=== PATIENT | male | born 1945 | race African-American/Black ===

== ENCOUNTER 2017-05-04 09:21 | Inpatient (IN) ==
[2017-05-04] MEDS ORDERED: SODIUM CHLORIDE 0.9% 1,000 ML IV STA (09:42)
--- NOTE | 2017-05-04 10:10 | Emergency Department Note ---
Suleman Avila Hilary, am scribing for, and in the presence of, Kirit Chang MD 09: 50. Charlene Avila James D, MD, personally performed the services described in this documentation, ascribed by Cait Shell in my presence, and it is both accurate and complete . Arrival - Arrival Chief Complaint: Altered Mental Status Stated Complaint: altered, urinary incontinence ED Nursing Triage Note: PT BROUGHT BY EMS FOR EVALUATION OF ALTERED MENTAL STATUS. PT WAS FOUND BY HIS FAMILY THIS MORNING DURING ROUTINE VISIT TO BE DISORIENTED, DISHEVELED, AND WITH URINARY INCONTINENCE. PT IS ALERT, BUT DISORIENTED TO TIME AND PLACE. Mode of Arrival: Stretcher Limitations: Altered Mental Status Source: Patient, RN Notes Reviewed Time Seen by Provider: 05/04/17 09:37 - History of Present Illness HPI Narrative: Pt is a 72 y/o black male brought to the ED via EMS with c/o AMS. His family found him this morning during their routine visit, he was disoriented. Pt is unaware of the year or day. He confirms dysuria and fever but denies vomiting and diarrhea. Pt is a poor hx due to his AMS. No other complaints or problems stated in the ED. patient absolutely denies any chest pain, neck pain, back pain , or shoulder pain. There is no history of arm pain. Onset (ago): unknown Consistency: constant Severity: mild Severity scale (1-10): 1 Allergies/Adverse Reactions: Allergies Allergy/AdvReac Type Severity Reaction Status Date / Time No Known Allergies Allergy Verified 05/04/17 09:35 Home Medications: Home Medications Medication Instructions Recorded Confirmed Type Ezetimibe [Zetia] 10 mg PO DAILY 05/07/16 06/10/16 History Montelukast Tab [Singulair Tab] 10 mg PO DAILY 05/07/16 06/10/16 History Pantoprazole Tab [Protonix Tab] 40 mg PO DAILY 05/07/16 06/10/16 History traMADol TAB [Ultram] 50 mg PO TID PRN 05/07/16 06/10/16 History Albuterol Sulfate [Albuterol Neb] 0.63 mg RESP TX BID 06/07/16 06/10/16 History Oxybutynin Xl [Ditropan Xl] 10 mg PO DAILY 06/07/16 06/10/16 History Ipratropium/Albuterol Inhaler 1 puff INH QID PRN 06/10/16 06/10/16 History [Combivent Respimat Inhaler] Lactulose Liquid [Chronulac] 2 tablespoon PO TID PRN 06/10/16 06/10/16 History Sulfameth/Trimeth 800-160 Tab 1 tablet PO BID #20 tablet 01/02/17 Rx [Bactrim DS Tab] predniSONE TAB [PredniSONE] 20 mg PO DAILY #10 tablet 01/02/17 Rx Levofloxacin Tab [Levaquin Tab] 500 mg PO DAILY #7 tablet 04/18/17 Rx predniSONE TAB [PredniSONE] 20 mg PO BID #20 tablet 04/18/17 Rx Review of System - Review of System 12 point system: reviewed and no additional remarkable complaints except as stated - Review of System Constitutional: Present: fever Gastrointestinal: Absent: vomiting, diarrhea Genitourinary male: Present: dysuria Medical,Surgical,& Family Hx - Medical History Cardio: History of: Hypertension Neurology: History of: Peripheral Neuropathy No history of: Seizures HEENT: History of: Ear Problem ([place]), Eye Problem ([place]), Dental Problems ( [place]) Endocrine: History of: Dyslipidemia Respiratory: History of: Asthma, Bronchitis, COPD, Lung Cancer, Respiratory Problems (RT LUNG NODULE, SHORTNESS OF BREATH) Genitourinary: History of: Bladder Problem (URGENCY), Prostate Problems ([place]) Gastrointestinal: History of: GERD, Polyps (REMOVED), GI Problems ([place]IP[place]) Musculoskeletal: History of: Back/Neck Problems (BACK DR TORRES LAST INJECTION 2015.) Other: History of: Cancer (PROSTATE CANCER, RT LUNG POSSIBLE) - Surgical History Abdominal Surgeries: Surgical HX of: Abdominal Surgery, Appendectomy (1976), Colonoscopy Orthopedic Surgeries: Surgical HX of;: Spinal Surgery (BACK SURGERY 1985) - Family History Family History: Reports;: Family Diabetes (SISTER, MOTHER), Family Hypertension (MOTHER, SISTER, BROTHER) - Social History Smoking Status: Former smoker Frequency of Alcohol Use: None Type of Drug Use: None Exam Physical Examination: GENERAL: This is a disheveled, AMS, well-developed in no apparent distress. VITAL SIGNS: Temperature: 97.5 Pulse: 114 Respiratory: 18 Blood Pressure: 180 /90 O2 Sat: 96 HEENT: Head is normocephalic and atraumatic. Pupils are equally round and reactive to light. Extraocular movement are intact. Oropharynx is benign with moist dry membranes. NECK: Neck is soft and supple without tenderness. There are no masses. There is no lymphadenopathy. LUNGS: Lungs are clear to auscultation bilaterally. Chest rises symmetrically. There is no chest wall tenderness. CV: Heart is regular rate and rhythm without murmurs, rubs, or gallops. ABDOMEN: Abdomen is soft,non- tender to palpation. There are no abnormal masses palpated. There is no organomegaly. Bowel sounds are present and active. SKIN: Skin is warm and dry. No rash. NEUROLOGIC: Awake, alert, and disoriented to time. Cranial nerves II through XII are grossly intact. There are no motorsensory deficits. PSYCHIATRIC: Normal affect. Normal mood. Vital Signs: Vital Signs Temperature 97.4 F L 05/04/17 09:21 Pulse Rate 106 H 05/04/17 11:00 Respiratory Rate 18 05/04/17 11:00 Blood Pressure 146/64 05/04/17 11:00 O2 Sat by Pulse Oximetry 100 05/04/17 11:00 Course - Consultations Consultation #1: Discussed with hospitalist. Patient will be admitted to their service. Time: 11:44 Results - Labs CBC & BMP: 05/04/17 10:39 05/04/17 10:39 Lab Results: I have reviewed the patients labs Labs: Laboratory Tests 05/04/17 10:28 Urine pH 8.0 Ur Specific [place] 1.025 Urine Protein 100 Urine Glucose (UA) 50 Urine Ketones 20 Urine Urobilinogen < 2.0 H Urine RBC 4 Urine WBC 1 Laboratory Tests 05/04/17 05/04/17 10:28 10:39 WBC 11.7 RBC 5.00 Hgb 13.8 L Hct 38.7 L MCV 77.4 L Plt Count 152 Neut % (Auto) 74.0 H Lymph % (Auto) 11.8 L Neut # (Auto) 8.6 H [place] # (Auto) 1.2 H Urine Opiates Screen Negative Ur Barbiturates Screen Negative Ur Phencyclidine Scrn Negative U Amphetamine/Methamph Negative U Benzodiazepines Scrn Negative U Cocaine Metab Screen Negative U Cannabinoids Screen Negative Laboratory Tests 05/04/17 05/04/17 10:39 10:39 INR 1.1 PT Patient/Control Mix 12.2 Circ Anticoag PTT 28.2 Lactic Acid 1.3 Laboratory Tests 05/04/17 10:39 Sodium 138 Potassium 4.1 Chloride 101 Carbon Dioxide 29 BUN 12 Glucose 109 H Calcium 8.4 L Troponin I 2.920 H Albumin 3.0 L Globulin 3.9 H Albumin/Globulin Ratio 0.7 L Laboratory Tests 05/04/17 05/04/17 05/04/17 10:28 10:28 10:39 WBC 11.7 Hgb 13.8 L Hct 38.7 L INR Troponin I Urine RBC 4 Urine WBC 1 Urine Opiates Screen Negative Ur Barbiturates Screen Negative Ur Phencyclidine Scrn Negative U Amphetamine/Methamph Negative U Benzodiazepines Scrn Negative U Cocaine Metab Screen Negative U Cannabinoids Screen Negative 05/04/17 05/04/17 10:39 10:39 WBC Hgb Hct INR 1.1 Troponin I 2.920 H Urine RBC Urine WBC Urine Opiates Screen Ur Barbiturates Screen Ur Phencyclidine Scrn U Amphetamine/Methamph U Benzodiazepines Scrn U Cocaine Metab Screen U Cannabinoids Screen - EKG EKG results: interpreted by ERMD - Impressions EKG: Sinus tachycardia with rate of 106, left axis deviation, right bundle branch block, nonspecific ST-T wave changes. - Diagnostic Findings Procedure: Chest x-ray: image reviewed by me (1. Right lower lobe interstitial pneumonic infiltrate iwth a small parapneumonic effusion suspected with the history, the possibility of radiation firotic scarring cannot be excluded in the right base. There is mild prominence of the right infrahilar region also noted. With previous CT scan demonstrated a small area of nodularity adenopathy in the right hilus 04/25/2017 and right base pleural effusion 2. Calcified nodular densities suggest granuloma changes in the right chest. 3. Degenerative spondylosis change thoracic spine), CT: image reviewed by me (CT head: No acute intracranial abnormality demonstrated. ) Disposition Clinical Impression: Altered mental status, Elevated troponin, Fall at home Case discussed with: patient Disposition: Still a Patient Condition: Guarded
--- NOTE | 2017-05-04 10:24 | CT Report ---
CT head/brain wo con Indication: Mental status changes Comparison: CT brain dated December 21, 2016 Technique: Multiple axial tomographic images of the brain were obtained without the use of intravenous contrast. Findings: Midline structures are nondisplaced. There is no evidence of acute intracranial hemorrhage or hydrocephalus. Senescent mineralization of the bilateral basal ganglia. Moderate periventricular and subcortical hypoattenuation noted which is nonspecific but consistent with chronic microvascular ischemic change. Demyelinating process and vasculitis less likely considerations. Mild global volume loss present. 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 IMPRESSION: No acute intracranial abnormality demonstrated. Chronic findings as detailed above. The CT exam was performed using one or more of the following dose reduction techniques: Automated exposure control, adjustment of the mA and/or kV according to patient size, or use of iterative reconstruction technique. PROCEDURE INTERPRETED AT [facility] DEPARTMENT OF RADIOLOGY Final Report Signed by: Dr Kraig Johnson
--- NOTE | 2017-05-04 10:25 | XRay Report ---
Exam: XR chest 1V portable Date: 05/04/2017 9:48 AM Indication: Altered mental status, history of lung cancer post radiation therapy Comparison: 04/18/2017 Technical: AP Findings: Heart is normal in size. There is a right basilar interstitial pneumonic infiltrate suspected. Fluid is present along the minor fissure. There is a small area of nodularity present in the right chest measuring approximately 9.5 mm with a second area measuring approximately 5.6 mm. Degenerative changes present along thoracic spine. ASVD is present. Low volume right effusion present. Impression: 1. Right lower lobe interstitial pneumonic infiltrate with a small parapneumonic effusion suspected with the history, the possibility of radiation fibrotic scarring cannot be excluded in the right base. There is mild prominence of the right infrahilar region also noted. With previous CT scan demonstrated a small area of nodularity adenopathy in the right hilus 04/25/2017 and right base pleural effusion 2. Calcified nodular densities suggest granuloma changes in the right chest. 3. Degenerative spondylosis change thoracic spine. PROCEDURE INTERPRETED AT [facility] DEPARTMENT OF RADIOLOGY Final Report Signed by: Dr. Danny Carrion
--- NOTE | 2017-05-04 10:26 | EKG Report ---
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
[2017-05-04 10:38] LABS: Apearance,Urine CLEAR (Clear); Bilirubin,Urine Negative (Negative); Blood, Urine Negative (Negative); Glucose,Urine (UA) 50 mg/dL (Negative); Ketones,Urine 20 mg/dL (Negative); Mucus,Urine Occasional /LPF (Occasional); Nitrite,Urine Negative (Negative); Protein,Urine 100 MG/DL; RBC,Urine 4 /HPF (0-4); Urine Color Yellow (Yellow); Urine Specific Gravity 1.025 (1.001-1.035); Urine Urobilinogen < 2.0 EU/DL (0.2-1.0); WBC,Urine 1 /HPF (0-6)
[2017-05-04 10:49] LABS: Barbiturates Screen,Urine Negative (Negative); Benzodiazepines Screen,Urine Negative (Negative); Cannabinoid Screen,Urine Negative (Negative); Opiate Screen,Urine Negative (Negative); Phencyclidine Screen,Urine Negative (Negative)
[2017-05-04 10:53] LABS: Basophils # 0.1 10*3/uL (0.0-0.2); Basophils % 0.5 % (0.0-0.8); Eosinophils # 0.4 10*3/uL (0.0-0.87); Eosinophils % 3.1 % (0.00-10.9); Hematocrit 38.7 VOL% (42.0-52.0); Hemoglobin 13.8 GM/DL (14.0-18.0); Immature Granulocytes % 0.4 %; Immature Granulocytes Absolute 0.05 #; Lymphocytes # 1.4 10*3/uL (1.4-4.0); Lymphocytes % 11.8 % (21.2-54.2); Mean Corpuscular HGB Conc 35.7 GM/DL (32-36); Mean Corpuscular Hemoglobin 28 PG (27-34); Mean Corpuscular Volume 77.4 FL (87-102); Mean Platelet Volume 10.1 FL (9.6-12.0); Monocytes # 1.2 10*3/uL (0.11-0.8); Monocytes % 10.2 % (1.7-12.7); Neutrophils # 8.6 10*3/uL (1.4-7.4); Platelet Count 152 T/CUMM (130-400); Red Cell Distribution Width 14.8 % (9.3-17.3); White Blood Count 11.7 T/CUMM (4-12)
[2017-05-04 11:03] LABS: INR 1.1; PT Patient Result 12.2 SECS; Partial Thromboplastin Time 28.2 SECS (0-40)
[2017-05-04 11:33] LABS: Bilirubin,Total 0.9 MG/DL (0.2-1.0); Calcium 8.4 MG/DL (8.5-10.1); Osmolality,Calculated 275.7 MOS/KG (273-304); Potassium 4.1 MMOL/L (3.5-5.1); Total Protein 6.9 G/DL (6.4-8.3)
[2017-05-04 11:35] LABS: Troponin I Only 2.92 NG/ML (0.00-0.045)
--- NOTE | 2017-05-04 12:15 | XRay Report ---
XR pelvis AP 1 or 2 Views Indication: Fall Comparison: Pelvic x-ray dated May 07, 2016 Technique: Single frontal view of the pelvis. Findings: [id number] degenerative change of the bilateral hips. No definite acute fracture or dislocation demonstrated. Sacrum somewhat obscured by bowel. Degenerative change of the lower lumbar spine noted. IMPRESSION: As above. PROCEDURE INTERPRETED AT [facility] DEPARTMENT OF RADIOLOGY Final Report Signed by: Dr Kraig Johnson
--- NOTE | 2017-05-04 13:38 | Discharge Summary ---
Hospital Course - Hospital Course Hospital Course: This is a chronically ill 72-year-old male that presented to the ED at [facility] via EMS this morning for the evaluation of altered mental status. Patient has a very complex medical history significant for: Hypertension, peripheral neuropathy, dyslipidemia, chronic obstructive pulmonary disease, asthma, bronchitis, carcinoma of the lung, carcinoma of the prostate, GERD, chronic constipation, urinary frequency. She has a surgical history significant for: appendectomy and back surgery. Apparently, the patient was found by his family this morning at his home. His brother came by to visit and found the patient confused, disheveled, and he had experienced urinary incontinence. They became alarmed and called EMS. Time of ED presentation, the patient was grossly altered The patient was aware that he was at the hospital however he was unable to recall situation, date, or time. Labs were obtained: Complete blood cell count reported WBCs 11.7, hemoglobin 13.8, hematocrit 30.7, and platelet count 150 2P coagulation panel reported an INR 1.1, PT 12.2, and PTT of 28.2. Chemistry panel reported sodium of 138, potassium 4.1, chloride 101, carbon dioxide 29, BUN 12, creatinine 1.00 , glucose 109, lactic acid 1.3, calcium 8.4. Cardiac enzymes reported grossly elevated troponin at 2.920. Urinalysis was essentially unremarkable. Chest x- ray reported right lower lobe interstitial pneumonic infiltrate with a small parapneumonic effusion, the possibility of radiation fibrotic scarring cannot be excluded in the right base. In addition there is mild prominence of the right infrahilar region, calcified nodular densities suggest granuloma changes in the right chest, and degenerative spondylosis change in the thoracic spine. CT head reported no acute intracranial abnormalities however chronic findings of left cerebellum of encephalomalacia were noted. Pelvic x-ray reported mild to moderate degenerative change in the bilateral hips, no acute definitive fracture or dislocation demonstrated, sacrum is somewhat obscured by bowel, degenerative changes of the lumbar spine noted. After brief discussion with both Dr. Chang and Dr. Swain; the patient will be admitted to the hospitalist services for continuation of care. Discharge Plan - Discharge Medications No Action Pantoprazole Tab [Protonix Tab] 40 mg PO DAILY Ezetimibe [Zetia] 10 mg PO DAILY traMADol TAB [Ultram] 50 mg PO TID PRN PRN Reason: Pain Montelukast Tab [Singulair Tab] 10 mg PO DAILY Albuterol Sulfate [Albuterol Neb] 0.63 mg RESP TX BID Oxybutynin Xl [Ditropan Xl] 10 mg PO DAILY Ipratropium/Albuterol Inhaler [Combivent Respimat Inhaler] 1 puff INH QID PRN PRN Reason: Wheezing Lactulose Liquid [Chronulac] 2 tablespoon PO TID PRN PRN Reason: Constipation Sulfameth/Trimeth 800-160 Tab [Bactrim DS Tab] 1 tablet PO BID #20 tablet predniSONE TAB [PredniSONE] 20 mg PO BID #20 tablet predniSONE TAB [PredniSONE] 20 mg PO DAILY #10 tablet Levofloxacin Tab [Levaquin Tab] 500 mg PO DAILY #7 tablet - Follow Up or Referral - Forms/Instructions Exam - Constitutional Vitals: Period Temp Pulse Resp BP Sys/Huang Pulse Ox Last 24 Hr 97.4 F-97.5 F 106-114 18-20 129-180/64-95 96-100 Discharge Results Procedures and tests throughout hospitalization: Pending Orders 05/04/17 09:48 Blood Culture Stat Labs on day of discharge: Labs from last 24 hours 05/04/17 05/04/17 05/04/17 10:39 10:39 10:39 WBC RBC Hgb Hct MCV MCH MCHC RDW Plt Count MPV Neut % (Auto) Lymph % (Auto) [place] % (Auto) Eos % (Auto) Baso % (Auto) Neut # (Auto) Lymph # (Auto) [place] # (Auto) Eos # (Auto) Baso # (Auto) Immature Gran % Nucleated RBC % Immature Gran # Nucleated RBCs # INR PT Patient/Control Mix Circ Anticoag PTT Sodium 138 Potassium 4.1 Chloride 101 Carbon Dioxide 29 Anion Gap 12.1 BUN 12 Creatinine 1.00 GFR Calculation 101 BUN/Creatinine Ratio 12.00 Glucose 109 H Calculated Osmolality 275.7 Lactic Acid 1.3 Calcium 8.4 L Total Bilirubin 0.90 AST 31 ALT 27 Alkaline Phosphatase 79 Ammonia 16 Troponin I 2.920 H Total Protein 6.9 Albumin 3.0 L Globulin 3.9 H Albumin/Globulin Ratio 0.7 L Prolactin 6.9 Urine Color Urine Appearance Urine pH Ur Specific Drain Urine Protein Urine Glucose (UA) Urine Ketones Urine Blood Urine Nitrate Urine Bilirubin Urine Urobilinogen Urine Leukocytes Urine RBC Urine WBC Urine Mucus Ur Culture Indicated? Urine Opiates Screen Ur Barbiturates Screen Ur Phencyclidine Scrn U Amphetamine/Methamph U Benzodiazepines Scrn U Cocaine Metab Screen U Cannabinoids Screen 05/04/17 05/04/17 05/04/17 10:39 10:39 10:28 WBC 11.7 RBC 5.00 Hgb 13.8 L Hct 38.7 L MCV 77.4 L MCH 28 MCHC 35.7 RDW 14.8 Plt Count 152 MPV 10.1 Neut % (Auto) 74.0 H Lymph % (Auto) 11.8 L [place] % (Auto) 10.2 Eos % (Auto) 3.1 Baso % (Auto) 0.5 Neut # (Auto) 8.6 H Lymph # (Auto) 1.4 [place] # (Auto) 1.2 H Eos # (Auto) 0.4 Baso # (Auto) 0.1 Immature Gran % 0.4 Nucleated RBC % 0.0 Immature Gran # 0.05 Nucleated RBCs # 0.00 INR 1.1 PT Patient/Control Mix 12.2 Circ Anticoag PTT 28.2 Sodium Potassium Chloride Carbon Dioxide Anion Gap BUN Creatinine GFR Calculation BUN/Creatinine Ratio Glucose Calculated Osmolality Lactic Acid Calcium Total Bilirubin AST ALT Alkaline Phosphatase Ammonia Troponin I Total Protein Albumin Globulin Albumin/Globulin Ratio Prolactin Urine Color Urine Appearance Urine pH Ur Specific Drain Urine Protein Urine Glucose (UA) Urine Ketones Urine Blood Urine Nitrate Urine Bilirubin Urine Urobilinogen Urine Leukocytes Urine RBC Urine WBC Urine Mucus Ur Culture Indicated? Urine Opiates Screen Negative Ur Barbiturates Screen Negative Ur Phencyclidine Scrn Negative U Amphetamine/Methamph Negative U Benzodiazepines Scrn Negative U Cocaine Metab Screen Negative U Cannabinoids Screen Negative 05/04/17 10:28 WBC RBC Hgb Hct MCV MCH MCHC RDW Plt Count MPV Neut % (Auto) Lymph % (Auto) [place] % (Auto) Eos % (Auto) Baso % (Auto) Neut # (Auto) Lymph # (Auto) [place] # (Auto) Eos # (Auto) Baso # (Auto) Immature Gran % Nucleated RBC % Immature Gran # Nucleated RBCs # INR PT Patient/Control Mix Circ Anticoag PTT Sodium Potassium Chloride Carbon Dioxide Anion Gap BUN Creatinine GFR Calculation BUN/Creatinine Ratio Glucose Calculated Osmolality Lactic Acid Calcium Total Bilirubin AST ALT Alkaline Phosphatase Ammonia Troponin I Total Protein Albumin Globulin Albumin/Globulin Ratio Prolactin Urine Color Yellow Urine Appearance Clear Urine pH 8.0 Ur Specific [place] 1.025 Urine Protein 100 Urine Glucose (UA) 50 Urine Ketones 20 Urine Blood Negative Urine Nitrate Negative Urine Bilirubin Negative Urine Urobilinogen < 2.0 H Urine Leukocytes Negative Urine RBC 4 Urine WBC 1 Urine Mucus Occasional Ur Culture Indicated? Not indicated Urine Opiates Screen Ur Barbiturates Screen Ur Phencyclidine Scrn U Amphetamine/Methamph U Benzodiazepines Scrn U Cocaine Metab Screen U Cannabinoids Screen DS: Provider Date of admission: 05/04/17 11:56 Primary care physician: Danny Byrd MD Attending physician on admission: Noah Swain MD Discharging clinician: Daniela Antonio CNP
[2017-05-04] MEDS ORDERED: ONDANSETRON 4 MG/2 ML VIAL IV PRN (13:48)
--- NOTE | 2017-05-04 13:51 | Hospitalist History & Physical ---
Assessment and Plan (1) Altered mental status Status: Acute Assessment and plan: According to the family's report, the patient's baseline is normally alert and oriented. They report that the patient still lives independently and drives his car. Their concern regarding his ability to be able to live alone. CT scan was essentially negative for any acute intracranial processes. We will monitor closely. Current Visit: Yes (2) Elevated troponin Status: Acute Assessment and plan: Troponin was grossly elevated at 2.920 at the time of ED presentation. We will obtain serial troponins and consult cardiology to evaluate. We will also obtain echocardiogram and BNP. Current Visit: Yes (3) Fall at home Status: Acute Assessment and plan: X-rays have been essentially unremarkable. We will consult physical therapy and Occupational Therapy to evaluate and treat. The patient is profoundly weak at the time of ED presentation; in addition we will consult case management for possible rehab placement at the time of discharge. Current Visit: Yes History of Present Illness Chief complaint: Altered mental status History of present illness: This is a chronically ill 72-year-old male that presented to the ED at [facility] via EMS this morning for the evaluation of altered mental status. Patient has a very complex medical history significant for: Hypertension, peripheral neuropathy, dyslipidemia, chronic obstructive pulmonary disease, asthma, bronchitis, carcinoma of the lung, carcinoma of the prostate, GERD, chronic constipation, urinary frequency. She has a surgical history significant for: appendectomy and back surgery. Apparently, the patient was found by his family this morning at his home. His brother came by to visit and found the patient confused, disheveled, and he had experienced urinary incontinence. They became alarmed and called EMS. Time of ED presentation, the patient was grossly altered The patient was aware that he was at the hospital however he was unable to recall situation, date, or time. Labs were obtained: Complete blood cell count reported WBCs 11.7, hemoglobin 13.8, hematocrit 30.7, and platelet count 150 2P coagulation panel reported an INR 1.1, PT 12.2, and PTT of 28.2. Chemistry panel reported sodium of 138, potassium 4.1, chloride 101, carbon dioxide 29, BUN 12, creatinine 1.00 , glucose 109, lactic acid 1.3, calcium 8.4. Cardiac enzymes reported grossly elevated troponin at 2.920. Urinalysis was essentially unremarkable. Chest x- ray reported right lower lobe interstitial pneumonic infiltrate with a small parapneumonic effusion, the possibility of radiation fibrotic scarring cannot be excluded in the right base. In addition there is mild prominence of the right infrahilar region, calcified nodular densities suggest granuloma changes in the right chest, and degenerative spondylosis change in the thoracic spine. CT head reported no acute intracranial abnormalities however chronic findings of left cerebellum of encephalomalacia were noted. Pelvic x-ray reported mild to moderate degenerative change in the bilateral hips, no acute definitive fracture or dislocation demonstrated, sacrum is somewhat obscured by bowel, degenerative changes of the lumbar spine noted. After brief discussion with both Dr. Chang and Dr. Swain; the patient will be admitted to the hospitalist services for continuation of care. Home Medications Medication Instructions Recorded Confirmed Type Ezetimibe [Zetia] 10 mg PO DAILY 05/07/16 06/10/16 History Montelukast Tab [Singulair Tab] 10 mg PO DAILY 05/07/16 06/10/16 History Pantoprazole Tab [Protonix Tab] 40 mg PO DAILY 05/07/16 06/10/16 History traMADol TAB [Ultram] 50 mg PO TID PRN 05/07/16 06/10/16 History Albuterol Sulfate [Albuterol Neb] 0.63 mg RESP TX BID 06/07/16 06/10/16 History Oxybutynin Xl [Ditropan Xl] 10 mg PO DAILY 06/07/16 06/10/16 History Ipratropium/Albuterol Inhaler 1 puff INH QID PRN 06/10/16 06/10/16 History [Combivent Respimat Inhaler] Lactulose Liquid [Chronulac] 2 tablespoon PO TID PRN 06/10/16 06/10/16 History Sulfameth/Trimeth 800-160 Tab 1 tablet PO BID #20 tablet 01/02/17 Rx [Bactrim DS Tab] predniSONE TAB [PredniSONE] 20 mg PO DAILY #10 tablet 01/02/17 Rx Levofloxacin Tab [Levaquin Tab] 500 mg PO DAILY #7 tablet 04/18/17 Rx predniSONE TAB [PredniSONE] 20 mg PO BID #20 tablet 04/18/17 Rx Allergies Allergy/AdvReac Type Severity Reaction Status Date / Time No Known Allergies Allergy Verified 05/04/17 09:35 Medical,Surgical,& Family Hx - Medical History Cardio: History of: Hypertension Neurology: History of: Peripheral Neuropathy No history of: Seizures HEENT: History of: Ear Problem ([place]), Eye Problem (GLASS[place]), Dental Problems ( [place]) Endocrine: History of: Dyslipidemia Respiratory: History of: Asthma, Bronchitis, COPD, Lung Cancer, Respiratory Problems (RT LUNG NODULE, SHORTNESS OF BREATH) Genitourinary: History of: Bladder Problem (URGENCY), Prostate Problems ([place]) Gastrointestinal: History of: GERD, Polyps (REMOVED), GI Problems (CONSTIPATION) Musculoskeletal: History of: Back/Neck Problems (BACK DR TORRES LAST INJECTION 2015.) Other: History of: Cancer (PROSTATE CANCER, RT LUNG POSSIBLE) - Surgical History Abdominal Surgeries: Surgical HX of: Abdominal Surgery, Appendectomy (1976), Colonoscopy Orthopedic Surgeries: Surgical HX of;: Spinal Surgery (BACK SURGERY 1985) - Family History Family History: Reports;: Family Diabetes (SISTER, MOTHER), Family Hypertension (MOTHER, SISTER, BROTHER) - Social History Smoking Status: Unknown if ever smoked Frequency of Alcohol Use: Unknown Type of Drug Use: None, Unknown Exam - Constitutional Vitals: Period Temp Pulse Resp BP Sys/Huang Pulse Ox Last 24 Hr 97.4 F-97.5 F 106-114 18-20 129-180/64-95 96-100 General appearance: normal weight, mild distress - Head Head exam: Present: normal inspection, normocephalic, atraumatic - Eye Eye exam: Present: EOMI. Absent: conjunctival injection Pupils: Present: LAZARO, normal accommodation - ENT ENT exam: Present: normal exam, normal external ear exam, normal oropharynx - Neck Neck exam: Present: normal inspection. Absent: lymphadenopathy, meningismus, tenderness, thyromegaly - Respiratory Respiratory exam: Present: clear to auscultation bilaterally. Absent: rales, rhonchi, stridor, wheezes - Cardiovascular Cardiovascular exam: Present: regular rate and rhythm. Absent: carotid bruit, diastolic murmur, gallop, JVD, rubs, systolic murmur - GI/Abdominal GI/Abdominal exam: Present: normal bowel sounds, soft - Back Exam Back exam: Present: normal inspection - Neurological Exam Neurological exam: Present: alert, altered - Psychiatric Psychiatric exam: Present: normal affect, normal mood - Skin Skin exam: Present: normal color, warm, dry Results - Labs CBC & BMP: 05/04/17 10:39 05/04/17 10:39 Lab Results: I have reviewed the past 24 hour labs
[2017-05-04] MEDS: ENOXAPARIN 40 MG/0.4 ML SYRINGE SUBCUT SCH (15:06)
[2017-05-04] MEDS: PANTOPRAZOLE 40 MG TABLET PO SCH (15:06)
[2017-05-04] MEDS: SODIUM CHLORIDE 0.9% 1,000 ML IV SCH (15:13)
[2017-05-04] MEDS ORDERED: ZIPRASIDONE 20 MG/1 ML VIAL IM PRN (18:20)
[2017-05-05] MEDS: SODIUM CHLORIDE 0.9% 1,000 ML IV SCH ×2 (04:01→17:58)
[2017-05-05 04:54] LABS: Basophils # 0.1 10*3/uL (0.0-0.2); Basophils % 0.6 % (0.0-0.8); Eosinophils # 0.4 10*3/uL (0.0-0.87); Eosinophils % 3.2 % (0.00-10.9); Hematocrit 40.2 VOL% (42.0-52.0); Hemoglobin 14.2 GM/DL (14.0-18.0); Immature Granulocytes % 0.4 %; Immature Granulocytes Absolute 0.05 #; Lymphocytes # 1.3 10*3/uL (1.4-4.0); Lymphocytes % 11.4 % (21.2-54.2); Mean Corpuscular HGB Conc 35.3 GM/DL (32-36); Mean Corpuscular Hemoglobin 27 PG (27-34); Mean Corpuscular Volume 77.2 FL (87-102); Mean Platelet Volume 9.8 FL (9.6-12.0); Monocytes # 1.2 10*3/uL (0.11-0.8); Monocytes % 10.4 % (1.7-12.7); Neutrophils # 8.2 10*3/uL (1.4-7.4); Platelet Count 151 T/CUMM (130-400); Red Blood Count 5.21 MC/CUMM (3.8-5.5); Red Cell Distribution Width 14.6 % (9.3-17.3); White Blood Count 11.1 T/CUMM (4-12)
[2017-05-05 05:32] LABS: Calcium 8.1 MG/DL (8.5-10.1); Magnesium 2.5 MG/DL (1.8-2.4); Osmolality,Calculated 272.8 MOS/KG (273-304); Potassium 4.4 MMOL/L (3.5-5.1)
[2017-05-05 05:33] LABS: Troponin I Only 1.79 NG/ML (0.00-0.045)
[2017-05-05] MEDS: PANTOPRAZOLE 40 MG TABLET PO SCH (09:36)
[2017-05-05] MEDS: ACETAMINOPHEN 325 MG TABLET PO PRN (09:39)
--- NOTE | 2017-05-05 12:00 | Hospitalist Progress Note ---
Assessment and Plan (1) Altered mental status Status: Acute Assessment and plan: Mr. Juarez has history of lung cancer. I am uncertain as to the cause of his behavioral changes and development of delirium. I am going to request MRI scan and neurology consultation. I reviewed the plan of care with the patient's sister at the bedside. Current Visit: Yes Hospitalist: Subjective Interval history: The patient is resting quietly in his room at present. He requires restraints for patient's safety of devices. His sister is sitting with him in the room. The patient is apparently oriented to person. He has dysarthria was prevents further evaluation of orientation. The patient is less agitated at present but still not thinking correctly. The patient is not complaining of pain angina or shortness of breath at present. Exam - Constitutional Vitals: Period Temp Pulse Resp BP Sys/Huang Pulse Ox Last 24 Hr 97 F-98.8 F 97-120 16-20 144-184/68-96 93-99 General appearance: no acute distress - Head Head exam: Present: normal inspection - Respiratory Respiratory exam: Present: clear to auscultation bilaterally Results - Labs CBC & BMP: 05/05/17 04:43 05/05/17 04:43
[2017-05-05] MEDS: predniSONE 20 MG TABLET PO SCH (13:37)
[2017-05-05] MEDS: MONTELUKAST 10 MG TABLET PO SCH (13:37)
[2017-05-05] MEDS: ENOXAPARIN 40 MG/0.4 ML SYRINGE SUBCUT SCH (13:38)
--- NOTE | 2017-05-05 14:54 | Neurology Consult Note ---
History of Present Illness History of present illness: This is a chronically ill 72-year-old -[place] gentleman with past medical history significant for Hypertension, peripheral neuropathy, dyslipidemia, chronic obstructive pulmonary disease, asthma, bronchitis, carcinoma of the lung, carcinoma of the prostate, GERD, chronic constipation, urinary frequency presented to the ED at [facility] via EMS this morning for the evaluation of altered mental status. Apparently, the patient was found by his family yesterday morning at his home. His brother came by to visit and found the patient confused, disoriented and he had experienced urinary incontinence. Time of ED presentation, the patient was grossly altered The patient was aware that he was at the hospital however he was unable to recall situation, date, or time. CT of the head is unremarkable for any acute pathology.Cardiac enzymes reported grossly elevated troponin at 2.920. Urinalysis was essentially unremarkable. Chest x-ray reported right lower lobe interstitial pneumonic infiltrate with a small parapneumonic effusion, the possibility of radiation fibrotic scarring cannot be excluded in the right base. Home Medications Medication Instructions Recorded Confirmed Type Ezetimibe [Zetia] 10 mg PO DAILY 05/07/16 05/04/17 History Montelukast Tab [Singulair Tab] 10 mg PO DAILY 05/07/16 05/04/17 History Pantoprazole Tab [Protonix Tab] 40 mg PO DAILY 05/07/16 05/04/17 History traMADol TAB [Ultram] 50 mg PO TID PRN 05/07/16 05/04/17 History Oxybutynin Xl [Ditropan Xl] 10 mg PO DAILY 06/07/16 05/04/17 History Ipratropium/Albuterol Inhaler 1 puff INH QID PRN 06/10/16 05/04/17 History [Combivent Respimat Inhaler] Lactulose Liquid [Chronulac] 2 tablespoon PO TID PRN 06/10/16 05/04/17 History predniSONE TAB [PredniSONE] 20 mg PO DAILY #10 tablet 01/02/17 05/04/17 Rx Umeclidinium Brm/Vilanterol Tr 1 puff INH DAILY 05/04/17 05/04/17 History [Anoro Ellipta] Allergies Allergy/AdvReac Type Severity Reaction Status Date / Time No Known Allergies Allergy Verified 05/04/17 09:35 12 point system: reviewed and no additional remarkable complaints except as stated Medical,Surgical,& Family Hx - Medical History Cardio: History of: Hypertension Neurology: History of: Peripheral Neuropathy No history of: Seizures HEENT: History of: Ear Problem ([place]), Eye Problem (GLASSES), Dental Problems ( FULL SET) Endocrine: History of: Dyslipidemia Respiratory: History of: Asthma, Bronchitis, COPD, Lung Cancer, Respiratory Problems (RT LUNG NODULE, SHORTNESS OF BREATH) Genitourinary: History of: Bladder Problem (URGENCY), Prostate Problems ([place]) Gastrointestinal: History of: GERD, Polyps (REMOVED), GI Problems (CONSTIPATION) Musculoskeletal: History of: Back/Neck Problems (BACK DR TORRES LAST INJECTION 2015.) Other: History of: Cancer (PROSTATE CANCER, RT LUNG POSSIBLE) - Surgical History Abdominal Surgeries: Surgical HX of: Abdominal Surgery, Appendectomy (1976), Colonoscopy Orthopedic Surgeries: Surgical HX of;: Spinal Surgery (BACK SURGERY 1985) - Family History Family History: Reports;: Family Diabetes (SISTER, MOTHER), Family Hypertension (MOTHER, SISTER, BROTHER) - Social History Smoking Status: Unknown if ever smoked Frequency of Alcohol Use: Unknown Type of Drug Use: None, Unknown Exam - Constitutional Vitals: Period Temp Pulse Resp BP Sys/Huang Pulse Ox Last 24 Hr 97 F-98.8 F 97-120 16-20 131-184/77-96 93-97 Exam: GENERAL: Patient is in no acute distress. NECK: Neck is supple. There is no JVD. No carotid bruits present. No thyroid masses. CVS: First and second heart sounds are normal. There is no S3 present. Regular rate and rhythm. RESPIRATORY: Lungs are clear to auscultation without any rales or rhonchi. ABDOMEN: Soft and non-tender. Bowel sounds are present. There is no hepatosplenomegaly. EXT: There is no palpable edema. Peripheral pulses are present. Skin: No rashes Central Nervous system: General: Alert, awake Speech: Fluent Comprehension: Fair Facial expressions: Normal Cranial Nerves: CN1/Olfactory: Normal CN II/ Optic: Normal, Visual Cavanaugh unreliable CN III, and : LAZARO & EOMI CN V: Normal & intact CN VII: face is symmetric CNVIII: Normal CN XI/X/XI/XII: Intact and Normal Motor: Bulk and Tone is normal. Strength in the right 5/5 Strength in the left 5/5 Sensory: Grossly intact for all the modalities of PP, LT and temp sense Reflexes: 1+ and symmetrical Cerebellar function: Normal finger to nose and heel to vogel testing. Toes: Equivocal Gait: Not tested Results - Labs CBC & BMP: 05/05/17 04:43 05/05/17 04:43 Assessment and Plan (1) Altered mental status Status: Acute Assessment and plan: Rule out stroke versus encephalopathy of unknown origin MRI of the brain without contrast Mini-Mental exam Thank you for the consult Current Visit: Yes
--- NOTE | 2017-05-05 16:35 | Magnetic Resonance Report ---
History: Acute mental status changes. Reported history of prostate cancer and lung cancer Date: 05/05/2017 Study: MRI brain without contrast Comparison exam: CT brain without contrast May 04, 2017 The brain was imaged in 3 planes on the 1.2 Soniya open magnet without without IV contrast, to include diffusion, T2, FLAIR, gradient echo, and T1-weighted sequences. The patient was originally admitted on 05/04/2017. The ventricles are midline in position without evidence of hydrocephalus. There are numerous scattered areas of restricted diffusion compatible with acute ischemia throughout both cerebellar and cerebral hemispheres bilaterally, presumably embolic in nature. This includes a 33 mm area of restricted diffusion in the right cerebellar hemisphere and 27 mm area of restricted diffusion involving cortex and subcortical white matter in the posterior right frontal region. Punctate foci of restricted diffusion are noted to involve cortex in the frontal, parietal, and occipital lobes. There is chronic ischemic change in the superior aspect of the left cerebellar hemisphere as noted on recent CT scan. There is no obvious mass effect to specifically suggest metastatic disease, though evaluation for metastatic disease is limited without the benefit of IV contrast. There is a small amount of patchy increased FLAIR and T2 signal in the periventricular white matter without mass effect compatible with changes of small vessel disease. There is no extra-axial hematoma. There is a normal flow void in the superior sagittal sinus. There is no gross flow abnormality in the [place] area. There is mild circumferential mucosal thickening in the maxillary, ethmoid, and sphenoid sinuses. Impression: Widespread scattered areas of acute embolic ischemia between 6 hours and 4 days old, involving cerebral and cerebellar hemispheres bilaterally. Bilateral MCA, bilateral JENNIFER, bilateral HAIR PREPARER, and basilar artery vascular distributions are involved. No areas of discrete mass effect are seen to specifically suggest metastatic disease, though evaluation is limited without the benefit of IV contrast. There is no parenchymal hemorrhage. There is some mild sinus disease which may be chronic or allergic PROCEDURE INTERPRETED AT [facility] DEPARTMENT OF RADIOLOGY Final Report Signed by: Dr. Niurka Rueda
--- NOTE | 2017-05-05 16:57 | Pulmonology Consult Note ---
History of Present Illness Chief complaint: Pneumonia. Altered mental status. History of present illness: Mr. Juarez is a 72 year old black male who is well known to me. I have been asked to see him in pulmonary consultation for evaluation and treatment. This patient has presented with an abnormal chest x-ray and he has an altered mental status. It appears that the patient was found at home confused by his brother on 01/02/2017. Patient's also been found to have an abnormal chest x- ray. 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 Carlton Saravia. His room air O2 sats are 92%. This patient is alert he does not know where he is. This involves the type of building examined and also to geographic location. He told me that they think I am crazy. Patient's mental status is definitely different than when I seen him in the past. The remainder the patient's review of systems is negative but unreliable. Allergies. None. Home medicines. See below Hospital medicines. See below Immunology. Pneumovax 2016. Yearly flu shot. Past history. Hyperlipidemia. COPD. Bronchospastic disease. High blood pressure. BPH. Degenerative joint disease. History of asbestos exposure. 05/11 transthoracic needle biopsy of superior segment right lower lung nodule. 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 Patient's been treated with radiation therapy by Dr. Carlton Saravia. Previous pulmonary function test have shown. 1. Moderate obstructive lung disease. 2. Positive response to inhaled bronchodilators. 3. Mild to moderate emphysema 4. Maximum voluntary ventilation of 56 L/min of 44% of predicted. Surgical history. TURP January [address] Sebastien Noyola. Repair of a herniated nucleus pulposus in the lumbosacral area in 1976. 2016 transthoracic biopsy right lower lung cancer. Family history. His father had diabetes and glaucoma. His sister had diabetes Social history. History of asbestos exposure. History of tobacco abuse. Stop smoking 2002. Patient is a daughter who is a registered nurse. She lives in [facility]. MRI of the brain. Widespread scattered areas of acute embolic ischemia between 6 hours and 4 days old involving the cerebellar and cerebral hemispheres bilaterally. Bilateral middle cerebral artery, bilateral anterior cerebral artery, bilateral posterior cerebral artery and basilar artery vascular distributions are involved. No mass-effect. No hemorrhage. Mild sinus disease. Chest x-ray. Infiltrative change mainly in the right lower lung. This is most likely a bacterial infiltrate but radiation pneumonitis is also a possibility Lab. White blood cell count 11,174 segs 11 lymphs and 10 monos. H&H is 14.2 of 40.2. Platelets are 151,000. Electrolytes are normal. Creatinine is 0.80 with a BUN of 9. Glucoses are normal. Troponin was elevated 2.92. Total protein is 6.9. Albumin is low at 3.0 and globulins are up at 3.9. Urine showed a specific gravity of 1.025. There was a small amount of protein and ketones present. Toxicology is negative. INR is 1.1. Labs been reviewed. Medicines been reviewed. Physical exam. Vital signs. See below. Psychiatric. None agitated. Confused. Neurologic. Cranial nerves are grossly intact. Patient moves all 4 extremities. Confused. Face. Symmetrical. No edema of the lips or tongue. Lymphatics. No submandibular cervical supraclavicular or epitrochlear adenopathy. Neck. Symmetrical. Thyroid was not palpated. No meningismus. Chest. Slight loose large airway congestion. No wheeze. Heart. Regular sinus rhythm. I do not hear murmur. Abdomen. Nontender. Hypoactive bowel sounds. Edge of the liver feels normal. No other organs were palpable. and rectal deferred. Lower extremities. Right calf is slightly larger than the left calf. Patient complains of pain with posterior compression on both calves. Skin of the face hands and feet show no cancerous or infectious lesions. No other areas of skin were examined. The remainder the physical exam is negative. Impression. 1. Altered mental status which is probably secondary to multiple bilateral cerebral emboli. Source is undetermined but would most likely be from the heart or ascending aorta. 2. Possible right lower lung pneumonia. Bacterial versus radiation injury. 3. COPD. Asthma. 4. 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 5. Past history tobacco abuse. Stop smoking 2002 6. History of asbestos exposure 7. Hyperlipidemia 8. High blood pressure 9. Degenerative joint disease 11. Chronic allergic sinusitis Plan. 1. Agree with Lovenox for anticoagulation 2. Echocardiogram look for source of emboli 3. Carotid ultrasounds 4. Doppler venograms of the lower extremity 5. Antibiotic coverage with Levaquin and Cleocin 6. Solu-Medrol 40 IV push every 12 hours. Note the patient's on chronic prednisone. If radiation pneumonitis is present Solu-Medrol be helpful 7. See orders. Home Medications Medication Instructions Recorded Confirmed Type Ezetimibe [Zetia] 10 mg PO DAILY 05/07/16 05/04/17 History Montelukast Tab [Singulair Tab] 10 mg PO DAILY 05/07/16 05/04/17 History Pantoprazole Tab [Protonix Tab] 40 mg PO DAILY 05/07/16 05/04/17 History traMADol TAB [Ultram] 50 mg PO TID PRN 05/07/16 05/04/17 History Oxybutynin Xl [Ditropan Xl] 10 mg PO DAILY 06/07/16 05/04/17 History Ipratropium/Albuterol Inhaler 1 puff INH QID PRN 06/10/16 05/04/17 History [Combivent Respimat Inhaler] Lactulose Liquid [Chronulac] 2 tablespoon PO TID PRN 06/10/16 05/04/17 History predniSONE TAB [PredniSONE] 20 mg PO DAILY #10 tablet 01/02/17 05/04/17 Rx Umeclidinium Brm/Vilanterol Tr 1 puff INH DAILY 05/04/17 05/04/17 History [Anoro Ellipta] Allergies Allergy/AdvReac Type Severity Reaction Status Date / Time No Known Allergies Allergy Verified 05/04/17 09:35 Exam (Pulmonay) H&P - Constitutional Vitals: Period Temp Pulse Resp BP Sys/Huang Pulse Ox Last 24 Hr 97 F-98.6 F 97-120 16-20 131-184/77-96 93-96 Medical,Surgical,& Family Hx - Medical History Cardio: History of: Hypertension Neurology: History of: Peripheral Neuropathy No history of: Seizures HEENT: History of: Ear Problem ([place] Eye Problem (GLASSES), Dental Problems ( FULL SET) Endocrine: History of: Dyslipidemia Respiratory: History of: Asthma, Bronchitis, COPD, Lung Cancer, Respiratory Problems (RT LUNG NODULE, SHORTNESS OF BREATH) Genitourinary: History of: Bladder Problem (URGENCY), Prostate Problems ([place]) Gastrointestinal: History of: GERD, Polyps (REMOVED), GI Problems (CONSTIPATION) Musculoskeletal: History of: Back/Neck Problems (BACK DR TORRES LAST INJECTION 2015.) Other: History of: Cancer (PROSTATE CANCER, RT LUNG POSSIBLE) - Surgical History Abdominal Surgeries: Surgical HX of: Abdominal Surgery, Appendectomy (1976), Colonoscopy Orthopedic Surgeries: Surgical HX of;: Spinal Surgery (BACK SURGERY 1985) - Family History Family History: Reports;: Family Diabetes (SISTER, MOTHER), Family Hypertension (MOTHER, SISTER, BROTHER) - Social History Smoking Status: Unknown if ever smoked Frequency of Alcohol Use: Unknown Type of Drug Use: None, Unknown Results - Labs CBC & BMP: 05/05/17 04:43 05/05/17 04:43
[2017-05-05] MEDS: CLINDAMYCIN INJ 300 MG in PREMIX 1 EACH IV SCH ×2 (17:58→23:32)
--- NOTE | 2017-05-05 19:17 | Ultrasound Report ---
Exam: Bilateral lower extremity venous Doppler ultrasound Comparison: 03/03/2017 Clinical history: Leg edema Technique: Duplex scan of the lower extremity veins using B-mode/grayscale scaled imaging and Doppler spectral analysis and color flow. Findings: Major venous structures of the lower extremities demonstrate a normal course and caliber. Normal color-flow study and spectral analysis. There is normal compression and augmentation of bilateral common femoral, superficial femoral and popliteal veins. The proximal bilateral greater saphenous veins appear to be patent. Impression: No evidence to suggest deep venous thrombosis within either lower extremity. Ultrasound images were captured and stored. PROCEDURE INTERPRETED AT [facility] OF RADIOLOG[facility] Final Report Signed by: Dr. Sanam Maldonado
--- NOTE | 2017-05-05 19:20 | Ultrasound Report ---
Exam: Carotid ultrasound Date: 05/05/2017 Comparison: 10/26/2010, MRI of brain 05/05/2017 Technique: Duplex scans of the carotid and vertebral arteries using B-mode/Aguillon scale imaging and Doppler spectral analysis and color flow. Reason: Alteration of consciousness, abnormal MRI Findings: The right ICA measures 7.0 mm in diameter and the left ICA measures 5.1 mm in diameter. Color-flow documented in the visualized arteries. The peak systolic velocities are as follows: Right CCA: 103.0 cm/s Right ICA: 66.5 cm/s Right ECA: 67.4 cm/s Left CCA: 95.3 cm/s Left ICA: 59.6 cm/s Left ECA: 139.2 cm/s The peak systolic ICA/CCA velocity ratios are as follows: 0.6 on the right and 0.6 on the left. Antegrade flow is present in both vertebral arteries. Impression:[Less than 50% stenosis in both internal carotid arteries with heterogeneous plaque formation. Antegrade flow in both vertebral arteries.] The Society of Radiologists in Ultrasound consensus conference criteria was used. The Ultrasound images were captured and stored. PROCEDURE INTERPRETED AT [facility] DEPARTMENT OF RADIOLOGY Final Report Signed by: Dr. Sanam Maldonado
[2017-05-05] MEDS: LEVOFLOXACIN INJ 500 MG in PREMIX 1 EACH IV SCH (21:13)
[2017-05-05] MEDS: methylPREDNISolone SOD SUC 40 MG/1 ML VIAL IV SCH (21:57)
[2017-05-05] MEDS: ENOXAPARIN 80 MG/0.8 ML SYRINGE SUBCUT SCH (21:57)
[2017-05-06] MEDS: SODIUM CHLORIDE 0.9% 1,000 ML IV SCH ×2 (05:42→18:09)
[2017-05-06] MEDS: CLINDAMYCIN INJ 300 MG in PREMIX 1 EACH IV SCH ×3 (05:42→19:00)
--- NOTE | 2017-05-06 09:24 | XRay Report ---
Exam: XR chest 1V portable Date: 05/06/2017 8:55 AM Indication: Pneumonia Comparison: 05/04/2017 Technical AP portable Findings:: Calcified nodular densities present in the right chest. Right lower lobe pneumonic infiltrate and effusion are present. The heart is normal in size. Degenerative change present thoracic spine. External cardiac leads oxygen tubing are present. Impression: 1. Right lower lobe pneumonic infiltrate with underlying granuloma changes. Findings slightly worse when compared to previous study PROCEDURE INTERPRETED AT [facility] DEPARTMENT OF RADIOLOGY Final Report Signed by: Dr. Danny Carrion
[2017-05-06] MEDS: EZETIMIBE 10 MG TABLET PO SCH (10:28)
[2017-05-06] MEDS: MONTELUKAST 10 MG TABLET PO SCH (10:29)
[2017-05-06] MEDS: PANTOPRAZOLE 40 MG TABLET PO SCH (10:29)
[2017-05-06] MEDS: methylPREDNISolone SOD SUC 40 MG/1 ML VIAL IV SCH ×2 (10:30→21:03)
[2017-05-06] MEDS: ENOXAPARIN 80 MG/0.8 ML SYRINGE SUBCUT SCH ×2 (10:30→21:03)
--- NOTE | 2017-05-06 10:34 | Pulmonology Progress Note ---
Pulmonary - PN: Subj Interval history: Carlos Alberto Parker, AGDILIA-, acting as scribe for Dr. Danny Byrd Mr. Juarez is a 72-year-old -[place] male who we saw in initial pulmonary consultation on 05/05/2017. At that time, our impressions were: 1. Altered mental status which is probably secondary to multiple bilateral cerebral emboli. Source is undetermined but would most likely be from the heart or ascending aorta. 2. Possible right lower lung pneumonia. Bacterial versus radiation injury. 3. COPD. Asthma. 4. 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 5. Past history tobacco abuse. Stop smoking 2002 6. History of asbestos exposure 7. Hyperlipidemia 8. High blood pressure 9. Degenerative joint disease 10. Chronic allergic sinusitis 05/06/2017. The patient was seen today along with his brother. Patient is definitely more awake and alert this morning. He is oriented at least to person and place. Carotid ultrasound showed less than 50% stenosis in both ICAs with heterogenous plaque formation. There was antegrade flow in both vertebral arteries. Doppler venograms showed no evidence of deep venous thrombophlebitis within either lower extremity. Echocardiogram was ordered yesterday, but has not yet been done. Chest x-ray today shows a probable right lower lung infiltrate. He is presently being treated with Cleocin and Levaquin. We have asked for sputum, but thus far the patient has not been able to produce a sputum for testing. He has remained afebrile. His white count is normal. Medications have been reviewed. We made no changes today. Labs have been reviewed. No new labs were drawn today. Blood cultures are negative at day 1. Exam (Progress Note) - Constitutional Vitals: Period Temp Pulse Resp BP Sys/Huang Pulse Ox Last 24 Hr 96.7 F-98.6 F 95-102 16-20 131-156/71-90 92-99 Exam: Chest is wheeze free but there is slight loose large airway congestion Heart no gallop Abdomen is nontender and nondistended; bowel sounds are positive 4 but somewhat hypoactive Lower extremities right calf is slightly larger than the left calf; Doppler venograms were negative Psychiatric... See above Neurologic unchanged Plan: Follow-up echo report when available. Continue present pulmonary treatment. Agree with Lovenox. See orders. Results - Labs CBC & BMP: 05/05/17 04:43 05/05/17 04:43
--- NOTE | 2017-05-06 11:17 | ECHO Report ---
Paul Juarez Exam Date: 05/06/2017 09:31 Referring Physician: Technologist: Ashlee Morrison Age: 72 Ht (in): 71 Wt (lb): 185 Gender: M Exam Location: [facility] Echo Indications: altered mental status, look for sourse of emboli, abn. MRI, elevated troponin BP: 147 / 87 HR: 97 Rhythm: sinus tachycardia Technical Quality: Fair IMPRESSIONS EF 55 %. Grade I/IV diastolic dysfunction (abnormal relaxation filling pattern), normal to mildly elevated filling pressures. Normal right ventricular size. The right atrium is mildly enlarged. The left atrium is mildly enlarged. Morphologically normal mitral valve. Trace mitral valve regurgitation. Aortic valve sclerosis. No aortic valve regurgitation. Ovpe-fc-[id number] tricuspid valve regurgitation. VEW95-52 mmHg. Morphologically normal pulmonic valve. No pericardial effusion. Normal size aortic root and proximal ascending aorta. No LV or LA clot seen. MEASUREMENTS (Male / Female) Normal Values 2D ECHO LV Diastolic Diameter PLAX 4.4 cm 4.2 - 5.9 / 3.9 - 5.3 cm LV Systolic Diameter PLAX 2.9 cm LV Fractional Shortening PLAX 32.5 % IVS Diastolic Thickness 1.9 cm 0.6 - 1.0 / 0.6 - 0.9 cm LVPW Diastolic Thickness 1.4 cm 0.6 - 1.0 / 0.6 - 0.9 cm RV Internal Dim ED PLAX 2.8 cm Aortic Root Diameter 2.9 cm LA Systolic Diameter LX 3.8 cm 3.0 - 4.0 / 2.7 - 3.8 cm DOPPLER TR Peak Velocity 252.0 cm/s TR Peak Gradient 25.4 mmHg FINDINGS Left Ventricle EF 55 %. Grade I/IV diastolic dysfunction (abnormal relaxation filling pattern), normal to mildly elevated filling pressures. Right Ventricle Normal right ventricular size. Right Atrium The right atrium is mildly enlarged. Left Atrium The left atrium is mildly enlarged. Mitral Valve Morphologically normal mitral valve. Trace mitral valve regurgitation. Aortic Valve Aortic valve sclerosis. No aortic valve regurgitation. Tricuspid Valve Tricuspid valve not well visualized. Ipnw-cm-cwxdhqcs tricuspid valve regurgitation. VBJ37-46 mmHg. Pulmonic Valve Morphologically normal pulmonic valve. Pericardium No pericardial effusion. Aorta Normal size aortic root and proximal ascending aorta. Alpesh Goetz (Electronically Signed) Final Date: 06 May 2017 11:16
--- NOTE | 2017-05-06 14:20 | Hospitalist Progress Note ---
Assessment and Plan (1) Altered mental status Status: Acute Assessment and plan: Mr. Juarez has history of lung cancer. I am uncertain as to the cause of his behavioral changes and development of delirium. I am going to request MRI scan and neurology consultation. I reviewed the plan of care with the patient's sister at the bedside. Current Visit: Yes Hospitalist: Subjective Interval history: The patient is more alert today and not agitated. He is able to have a conversation. He does not complain of pain or shortness of breath. Exam - Constitutional Vitals: Period Temp Pulse Resp BP Sys/Huang Pulse Ox Last 24 Hr 96.7 F-98.2 F 95-102 16-20 135-156/71-90 92-99 Exam: Constitutional System: No distress. Mild tremulousness. Head: Normocephalic, atraumatic. Ears, Nose and Throat System: No evidence of Otitis or Mastoiditis. No epistaxis or discharge Eyes System: Pupils equal, round, and reactive. Extraocular muscles intact. Neck: Supple, without adenopathy, No jugular venous distention. No thyromegaly , neck mass, or prior surgery apparent. Respiratory System: Chest clear to auscultation. Cardiovascular System: Heart with regular rate and rhythm. No murmur. GI System: Abdomen soft, nontender. Normo active bowel sounds present. Musculoskeletal System: limbs with no pedal edema. Full distal pulses. Neurological System: No discernable sensory deficit. No aphasia Results - Labs CBC & BMP: 05/05/17 04:43 05/05/17 04:43 Lab Results: I have reviewed the past 24 hour labs Labs: MRI scanning reveals multiple small embolic type strokes. 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 He is now on full strength Lovenox and I am going to begin Coumadin. We will request physical and occupational therapy evaluations
[2017-05-06] MEDS: LEVOFLOXACIN INJ 500 MG in PREMIX 1 EACH IV SCH (18:07)
[2017-05-06] MEDS: WARFARIN 10 MG TABLET PO SCH (18:11)
[2017-05-07] MEDS: CLINDAMYCIN INJ 300 MG in PREMIX 1 EACH IV SCH ×4 (05:24→18:23)
[2017-05-07 06:24] LABS: INR 1.2; PT Patient Result 12.6 SECS
[2017-05-07 06:31] LABS: Calcium 9.1 MG/DL (8.5-10.1); Magnesium 2.5 MG/DL (1.8-2.4); Osmolality,Calculated 281.5 MOS/KG (273-304); Potassium 4.7 MMOL/L (3.5-5.1)
[2017-05-07] MEDS: SODIUM CHLORIDE 0.9% 1,000 ML IV SCH ×2 (07:00→18:20)
[2017-05-07] MEDS: ENOXAPARIN 80 MG/0.8 ML SYRINGE SUBCUT SCH ×2 (09:01→21:11)
[2017-05-07] MEDS: PANTOPRAZOLE 40 MG TABLET PO SCH (09:01)
[2017-05-07] MEDS: EZETIMIBE 10 MG TABLET PO SCH (09:01)
[2017-05-07] MEDS: MONTELUKAST 10 MG TABLET PO SCH (09:01)
[2017-05-07] MEDS: methylPREDNISolone SOD SUC 40 MG/1 ML VIAL IV SCH ×2 (09:02→21:11)
--- NOTE | 2017-05-07 10:03 | Pulmonology Progress Note ---
Pulmonary - PN: Subj Interval history: Mr. Juarez is a 72-year-old -[place] male who we saw in initial pulmonary consultation on 05/05/2017. At that time, our impressions were: 1. Altered mental status which is probably secondary to multiple bilateral cerebral emboli. Source is undetermined but would most likely be from the heart or ascending aorta. 2. Possible right lower lung pneumonia. Bacterial versus radiation injury. 3. COPD. Asthma. 4. 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 5. Past history tobacco abuse. Stop smoking 2002 6. History of asbestos exposure 7. Hyperlipidemia 8. High blood pressure 9. Degenerative joint disease 10. Chronic allergic sinusitis 05/06/2017. The patient was seen today along with his brother. Patient is definitely more awake and alert this morning. He is oriented at least to person and place. Carotid ultrasound showed less than 50% stenosis in both ICAs with heterogenous plaque formation. There was antegrade flow in both vertebral arteries. Doppler venograms showed no evidence of deep venous thrombophlebitis within either lower extremity. Echocardiogram was ordered yesterday, but has not yet been done. Chest x-ray today shows a probable right lower lung infiltrate. He is presently being treated with Cleocin and Levaquin. We have asked for sputum, but thus far the patient has not been able to produce a sputum for testing. He has remained afebrile. His white count is normal. Medications have been reviewed. We made no changes today. Labs have been reviewed. No new labs were drawn today. Blood cultures are negative at day 1. 05/07/2017. Patient's pulmonary status is stable today. His mentation is about the same as it was yesterday. Review of microbiology reveals no positive cultures. INR is 1.2. Electrolytes are normal. Creatinine is 0.90 with a BUN of 16. Calcium is 9.1 and magnesium is 2.5. Labs been reviewed. Medicines have been reviewed. Echocardiogram. Ejection fraction 55%. Grade 1/4 diastolic dysfunction. Trace of mitral valve regurgitation with pulmonary artery pressures in the 40-45 % range. Mild to moderate tricuspid regurgitation with slight enlargement of the right atrium with normal size right ventricle. There is no mention of abnormal valves which might be a source of embolic disease.. Based on the distribution of the patient's central nervous system emboli he would think that this would come from either left heart origin of the ascending aorta. Maybe we should consider additional evaluation. Exam (Progress Note) - Constitutional Vitals: Period Temp Pulse Resp BP Sys/Huang Pulse Ox Last 24 Hr 96.7 F-98.6 F 95-102 16-20 131-156/71-90 92-99 Exam: Face symmetrical. No swelling of the lips or tongue. Neck. Symmetrical. No meningismus. Lymphatics. No submandibular cervical or supraclavicular adenopathy Chest is wheeze free but there is slight loose large airway congestion Heart no gallop Abdomen is nontender and nondistended; bowel sounds are positive 4 but somewhat hypoactive Lower extremities right calf is slightly larger than the left calf; Doppler venograms were negative Psychiatric... See above. Calm but still confused. Neurologic unchanged. Cranial nerves are intact. Long track motor functions intact. Plan: 05/06/2017. 1. Follow-up echo report when available. 2. Continue present pulmonary treatment. 3. Agree with Lovenox. 4. See orders. 05/07/2017. 1. See today's note above. 2. Would be very helpful to know the source of the patient's bilateral central nervous system embolic disease Exam (Progress Note) - Constitutional Vitals: Period Temp Pulse Resp BP Sys/Huang Pulse Ox Last 24 Hr 97.1 F-98.6 F 93-106 18-20 122-179/71-93 93-98 Results - Labs CBC & BMP: 05/05/17 04:43 05/07/17 04:24
--- NOTE | 2017-05-07 10:18 | Hospitalist Progress Note ---
Assessment and Plan (1) Altered mental status Status: Acute Assessment and plan: According to the family's report, the patient's baseline is normally alert and oriented. They report that the patient still lives independently and drives his car. Their concern regarding his ability to be able to live alone. CT scan was essentially negative for any acute intracranial processes. We will monitor closely. 05/07-MRI on 629 reported acute embolic ischemic infarcts affecting the bilateral MCA ,JENNIFER and GEOLOGICAL SAMPLE TESTER however no acute hemorrhages were noted. The patient's mental status has improved. This morning he is appropriate. He oriented to place, situation, and year; however he is noted to have a delay in processing and reply when asked certain questions. This is a definite improvement since admission. Current Visit: Yes (2) Fall at home Status: Acute Assessment and plan: X-rays have been essentially unremarkable. We will consult physical therapy and Occupational Therapy to evaluate and treat. The patient is profoundly weak at the time of ED presentation; in addition we will consult case management for possible rehab placement at the time of discharge. 05/07-PT and OT in progress per MD order. Current Visit: Yes Hospitalist: Subjective Interval history: Patient seen and examined for medical chart reviewed. No significant overnight events reported. The patient is more talkative today, speech is clear, he is oriented to person place and time. Exam - Constitutional Vitals: Period Temp Pulse Resp BP Sys/Huang Pulse Ox Last 24 Hr 97.1 F-98.6 F 93-106 18-20 122-179/71-93 93-98 General appearance: normal weight, no acute distress - Head Head exam: Present: normal inspection, normocephalic - Eye Eye exam: Present: EOMI. Absent: conjunctival injection, nystagmus Pupils: Present: LAZARO, normal accommodation - ENT ENT exam: Present: normal exam, normal external ear exam - Neck Neck exam: Present: normal inspection. Absent: lymphadenopathy, meningismus, tenderness, thyromegaly - Respiratory Respiratory exam: Present: wheezes - Cardiovascular Cardiovascular exam: Present: bradycardia, regular rate and rhythm. Absent: carotid bruit, diastolic murmur, gallop, JVD, rubs, systolic murmur - GI/Abdominal GI/Abdominal exam: Present: hypoactive bowel sounds - Extremities Exam Extremities exam: Present: normal inspection, normal capillary refill, full ROM. Absent: edema - Back Exam Back exam: Present: normal inspection - Neurological Exam Neurological exam: Present: alert, oriented X3 - Psychiatric Psychiatric exam: Present: normal affect, normal mood - Skin Skin exam: Present: warm, dry Results - Labs CBC & BMP: 05/05/17 04:43 05/07/17 04:24 Lab Results: I have reviewed the past 24 hour labs
--- NOTE | 2017-05-07 13:41 | XRay Report ---
History: Distended abdomen Date: 05/07/2017 Study: KUB Comparison exam: May 13, 2014 x-ray The bowel gas pattern is nonspecific without johnny obstruction or gross mass lesion. Some scattered stool and air are noted in the normal caliber colon. No definite radiopaque calculus is seen. There is moderate lumbar spondylosis. Impression: No definite acute process PROCEDURE INTERPRETED AT [facility] DEPARTMENT OF RADIOLOGY Final Report Signed by: Dr. Niurka Rueda
[2017-05-07] MEDS: LACTULOSE 20 GM/30 ML UDCUP PO PRN (14:10)
[2017-05-07] MEDS: SIMETHICONE CHEW 80 MG TABLET PO PRN ×2 (17:04→21:10)
[2017-05-07] MEDS: LEVOFLOXACIN INJ 500 MG in PREMIX 1 EACH IV SCH (17:04)
[2017-05-07] MEDS ORDERED: FUROSEMIDE 40 MG/4 ML VIAL IV ONE (17:48)
[2017-05-07] MEDS: WARFARIN 10 MG TABLET PO SCH (18:23)
[2017-05-07] MEDS: ACETAMINOPHEN 325 MG TABLET PO PRN (21:10)
[2017-05-07] MEDS: hydrALAZINE 20 MG/1 ML VIAL IV PRN (21:19)
[2017-05-08] MEDS: CLINDAMYCIN INJ 300 MG in PREMIX 1 EACH IV SCH ×4 (01:15→18:54)
[2017-05-08 03:58] LABS: Basophils % 0.2 % (0.0-0.8); Eosinophils # 0.1 10*3/uL (0.0-0.87); Eosinophils % 0.7 % (0.00-10.9); Hematocrit 41.8 VOL% (42.0-52.0); Immature Granulocytes % 0.5 %; Immature Granulocytes Absolute 0.06 #; Lymphocytes # 0.8 10*3/uL (1.4-4.0); Lymphocytes % 6.1 % (21.2-54.2); Mean Corpuscular HGB Conc 35.9 GM/DL (32-36); Mean Corpuscular Hemoglobin 27 PG (27-34); Mean Corpuscular Volume 75.7 FL (87-102); Mean Platelet Volume 9.7 FL (9.6-12.0); Monocytes # 0.9 10*3/uL (0.11-0.8); Monocytes % 7.4 % (1.7-12.7); Neutrophils # 10.4 10*3/uL (1.4-7.4); Neutrophils % 85.1 % (38.7-73.9); Platelet Count 204 T/CUMM (130-400); Red Blood Count 5.52 MC/CUMM (3.8-5.5); Red Cell Distribution Width 14.5 % (9.3-17.3); White Blood Count 12.3 T/CUMM (4-12)
[2017-05-08 04:11] LABS: INR 1.9; PT Patient Result 20.6 SECS
[2017-05-08 04:35] LABS: Albumin 3.1 G/DL (3.4-5.0); Bilirubin,Total 1.1 MG/DL (0.2-1.0); Calcium 9.5 MG/DL (8.5-10.1); Magnesium 2.5 MG/DL (1.8-2.4); Phosphorous 3.7 MG/DL (2.5-4.9); Potassium 4.2 MMOL/L (3.5-5.1); Total Protein 7.3 G/DL (6.4-8.3)
[2017-05-08 06:55] LABS: Basophils % 0.3 % (0.0-0.8); Eosinophils # 0.2 10*3/uL (0.0-0.87); Eosinophils % 1.8 % (0.00-10.9); Hematocrit 41.2 VOL% (42.0-52.0); Immature Granulocytes % 0.5 %; Immature Granulocytes Absolute 0.06 #; Lymphocytes # 1.2 10*3/uL (1.4-4.0); Lymphocytes % 9.3 % (21.2-54.2); Mean Corpuscular HGB Conc 36.4 GM/DL (32-36); Mean Corpuscular Hemoglobin 27 PG (27-34); Mean Platelet Volume 9.1 FL (9.6-12.0); Monocytes # 1.1 10*3/uL (0.11-0.8); Monocytes % 8.6 % (1.7-12.7); Neutrophils # 10.2 10*3/uL (1.4-7.4); Neutrophils % 79.5 % (38.7-73.9); Platelet Count 187 T/CUMM (130-400); Red Blood Count 5.49 MC/CUMM (3.8-5.5); Red Cell Distribution Width 14.3 % (9.3-17.3); White Blood Count 12.9 T/CUMM (4-12)
[2017-05-08 07:05] LABS: Partial Thromboplastin Time 29.6 SECS (0-40)
[2017-05-08 07:10] LABS: INR 2.2
[2017-05-08 07:13] LABS: PT Patient Result 24.8 SECS
[2017-05-08 07:20] LABS: Albumin 3.3 G/DL (3.4-5.0); Bilirubin,Total 0.4 MG/DL (0.2-1.0); Osmolality,Calculated 277.7 MOS/KG (273-304); Potassium 4.1 MMOL/L (3.5-5.1); Total Protein 7.4 G/DL (6.4-8.3)
--- NOTE | 2017-05-08 08:08 | CT Report ---
History: Stroke alert Date: 05/08/2017 Study: CT head without contrast Comparison exam: MRI brain May 05, 2017, CT head May 04, [address] sections were obtained through the head without IV contrast. This CT exam was performed using one or more the following dose reduction techniques: Automated exposure control, adjustment of the MA and/or KV according to patient size, or use of iterative reconstruction technique. Patient originally admitted on May 04, 2017. The ventricles are midline in position without evidence of hydrocephalus. There is a 33 mm area of wedge-shaped of decreased density compatible with recent ischemia in the right frontal lobe as noted on the comparison MRI. There is also a wedge-shaped area of recent ischemia measuring 32 mm in the posterior right cerebellar hemisphere which corresponds to another MRI finding. Chronic ischemic changes noted in the left cerebellar hemisphere superiorly as before. There is no new mass. There is no parenchymal hemorrhage. There is some ill-defined low density in the periventricular white matter without mass effect compatible with changes of small vessel disease as before. There is no extra-axial hematoma. There is no acute abnormality of the calvarium. The partially visualized paranasal sinuses and mastoid air cells are clear. Impression: Recent areas of ischemia in the posterior right frontal lobe and right cerebellar hemisphere are noted, corresponding to MRI findings from May 05, 2017. These findings were not apparent on the CT scan from May 04, 2017. There is no parenchymal hemorrhage or definite new abnormality otherwise PROCEDURE INTERPRETED AT [facility] DEPARTMENT OF RADIOLOGY Final Report Signed by: Dr. Niurka Rueda
[2017-05-08] MEDS ORDERED: LISINOPRIL 10 MG TABLET PO SCH (09:00)
--- NOTE | 2017-05-08 09:42 | Hospitalist Progress Note ---
Assessment and Plan (1) Altered mental status Status: Acute Assessment and plan: According to the family's report, the patient's baseline is normally alert and oriented. They report that the patient still lives independently and drives his car. Their concern regarding his ability to be able to live alone. CT scan was essentially negative for any acute intracranial processes. We will monitor closely. 05/07-MRI on 629 reported acute embolic ischemic infarcts affecting the bilateral MCA ,JENNIFER and GROUND LAYER however no acute hemorrhages were noted. The patient's mental status has improved. This morning he is appropriate. He oriented to place, situation, and year; however he is noted to have a delay in processing and reply when asked certain questions. This is a definite improvement since admission. 05/08-culture stroke call this morning per nursing staff when the patient was noted to have a change in mental status, left-sided weakness and facial drooping. CT scan was essentially negative; however this is a very significant change from yesterday. The patient is alert however speech is very difficult but he is able to make his needs known. We will make keep the patient n.p.o. consult speech therapy to evaluate. This is indeed an acute change from yesterday. The patient's blood pressure has ran relatively high. We will not start any antihypertensives at this time we will allow a degree of permissive hypertension at this time. We will monitor very closely. Current Visit: Yes (2) Fall at home Status: Acute Assessment and plan: X-rays have been essentially unremarkable. We will consult physical therapy and Occupational Therapy to evaluate and treat. The patient is profoundly weak at the time of ED presentation; in addition we will consult case management for possible rehab placement at the time of discharge. 05/07-PT and OT in progress per MD order. Current Visit: Yes Hospitalist: Subjective Interval history: Patient seen and examined; chart reviewed. Code stroke called this morning when nursing staff noticed an acute change in patient's mental status and left- sided facial droop. CT head was initially negative; however the patient does have significant left-sided weakness, facial droop, slurred speech. Exam - Constitutional Vitals: Period Temp Pulse Resp BP Sys/Huang Pulse Ox Last 24 Hr 97.6 F-98.5 F 98-112 16-20 107-184/87-106 92-97 General appearance: normal weight, no acute distress - Head Head exam: Present: normal inspection, normocephalic, atraumatic - Eye Eye exam: Present: EOMI, other (Left sided gaze). Absent: conjunctival injection Pupils: Present: LAZARO - ENT ENT exam: Present: normal exam. Absent: normal external ear exam, normal oropharynx - Neck Neck exam: Present: normal inspection. Absent: meningismus, thyromegaly - Respiratory Respiratory exam: Present: clear to auscultation bilaterally. Absent: rales, rhonchi, stridor, wheezes - Cardiovascular Cardiovascular exam: Present: regular rate and rhythm. Absent: carotid bruit, diastolic murmur, gallop, JVD, rubs, systolic murmur - GI/Abdominal GI/Abdominal exam: Present: distended, soft - Extremities Exam Extremities exam: Present: other (Left sided weakness noted) - Back Exam Back exam: Present: normal inspection - Neurological Exam Neurological exam: Present: alert, other (Profound dysarthria; left-sided facial drooping, left-sided weakness) - Psychiatric Psychiatric exam: Present: normal affect, normal mood - Skin Skin exam: Present: normal color, warm, dry Results - Labs CBC & BMP: 05/08/17 06:45 05/08/17 06:45 Lab Results: I have reviewed the past 24 hour labs
[2017-05-08 10:39] LABS: Apearance,Urine CLEAR (Clear); Bilirubin,Urine Negative (Negative); Blood, Urine Small mg/dL (Negative); Glucose,Urine (UA) Negative (Negative); Ketones,Urine Negative (Negative); Nitrite,Urine Negative (Negative); Protein,Urine Negative; RBC,Urine 5 /HPF (0-4); Urine Color Yellow (Yellow); Urine Specific Gravity 1.013 (1.001-1.035); Urine Urobilinogen < 2.0 EU/DL (0.2-1.0); WBC,Urine 1 /HPF (0-6)
[2017-05-08] MEDS: LACTULOSE 20 GM/30 ML UDCUP PO PRN (11:10)
[2017-05-08] MEDS: methylPREDNISolone SOD SUC 40 MG/1 ML VIAL IV SCH ×2 (11:11→21:19)
[2017-05-08] MEDS: ENOXAPARIN 80 MG/0.8 ML SYRINGE SUBCUT SCH ×2 (11:11→21:19)
[2017-05-08] MEDS: DEXTROSE 5% NACL 0.45% 1,000 ML IV SCH (11:48)
--- NOTE | 2017-05-08 12:19 | CT Report ---
History: Abdominal distention Date: 05/08/2017 Study: CT abdomen and pelvis without contrast Comparison exam: Contrast CT abdomen and pelvis May 09, 2014 Technique: Spiral CT sections were obtained from the lung bases to the pubic symphysis without contrast. The CT exam was performed using one or more of the following dose reduction techniques: Automated exposure control, adjustment of the mA and/or kV according to patient size, or use of iterative reconstruction technique. CT abdomen: There is a small to moderate right-sided pleural effusion. There is mild strandy hazy atelectasis/infiltrate in the right lower lobe. Please refer to the CT chest report from April 25, 2017 for pulmonary findings otherwise. There is no evidence of pneumoperitoneum. There is moderate diffuse fatty infiltration of the liver. The liver, spleen, pancreas, adrenal glands, bile ducts, and fluid-filled gallbladder are otherwise unremarkable in noncontrast CT appearance. There is no radiopaque renal or ureteral stone or hydronephrosis. There is no evidence of pneumoperitoneum or johnny bowel obstruction. There is a tiny periumbilical hernia which contains a knuckle of small bowel without evidence to suggest underlying mechanical bowel obstruction. There is no obvious lymphadenopathy. There are some occasional rounded lytic areas within the vertebral bodies at L2-L4 in this patient with a reported history of lung cancer. These rounded lytic areas were not present on the [address] pelvis: There is no pelvic mass or abnormal pelvic fluid collection. There is a small rounded lytic area in the right iliac bone measuring 7.5 mm diameter as seen on image 106, not present in 2014. There is moderate nonspecific diffuse prominence of the prostate gland. Impression: No definite acute abdominal process. Fatty infiltration of the liver. Occasional scattered lytic changes in the lumbar spine and right iliac bone which were not present in 2014 and could represent bony metastatic disease in this patient with a history of known lung cancer Mild to moderate right pleural effusion Mild atelectasis/infiltrate right lower lobe PROCEDURE INTERPRETED AT [facility] DEPARTMENT OF RADIOLOGY Final Report Signed by: Dr. Niurka Rueda
--- NOTE | 2017-05-08 13:27 | Pulmonology Progress Note ---
Pulmonary - PN: Subj Interval history: Mr. Juarez is a 72-year-old -[place] male who we saw in initial pulmonary consultation on 05/05/2017. At that time, our impressions were: 1. Altered mental status which is probably secondary to multiple bilateral cerebral emboli. Source is undetermined but would most likely be from the heart or ascending aorta. 2. Possible right lower lung pneumonia. Bacterial versus radiation injury. 3. COPD. Asthma. 4. 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 5. Past history tobacco abuse. Stop smoking 2002 6. History of asbestos exposure 7. Hyperlipidemia 8. High blood pressure 9. Degenerative joint disease 10. Chronic allergic sinusitis 05/06/2017. The patient was seen today along with his brother. Patient is definitely more awake and alert this morning. He is oriented at least to person and place. Carotid ultrasound showed less than 50% stenosis in both ICAs with heterogenous plaque formation. There was antegrade flow in both vertebral arteries. Doppler venograms showed no evidence of deep venous thrombophlebitis within either lower extremity. Echocardiogram was ordered yesterday, but has not yet been done. Chest x-ray today shows a probable right lower lung infiltrate. He is presently being treated with Cleocin and Levaquin. We have asked for sputum, but thus far the patient has not been able to produce a sputum for testing. He has remained afebrile. His white count is normal. Medications have been reviewed. We made no changes today. Labs have been reviewed. No new labs were drawn today. Blood cultures are negative at day 1. 05/07/2017. Patient's pulmonary status is stable today. His mentation is about the same as it was yesterday. Review of microbiology reveals no positive cultures. INR is 1.2. Electrolytes are normal. Creatinine is 0.90 with a BUN of 16. Calcium is 9.1 and magnesium is 2.5. Labs been reviewed. Medicines have been reviewed. Echocardiogram. Ejection fraction 55%. Grade 1/4 diastolic dysfunction. Trace of mitral valve regurgitation with pulmonary artery pressures in the 40-45 % range. Mild to moderate tricuspid regurgitation with slight enlargement of the right atrium with normal size right ventricle. There is no mention of abnormal valves which might be a source of embolic disease.. Based on the distribution of the patient's central nervous system emboli he would think that this would come from either left heart origin of the ascending aorta. Maybe we should consider additional evaluation. 05/08/2017. This patient's mental status was somewhat altered earlier today and a CT scan of the head was done. This showed no acute changes. See report for additional details. Patient also had a CT of the abdomen and pelvis and this showed all lytic lesions in the bone which were present 2013. No other abnormality. Patient had a KUB of the abdomen on 05/07/2017 and it appeared that he had a good bit of fecal retention. Electrolytes normal. Creatinine is 0.9 with a BUN of 12 white count is 12,900 with 79.569.3 lymphs and 8.6 monocytes H& H is 15.0 41.2. Platelets 189,000. Liver function tests are normal. Her previous ammonia level was normal at 16 Exam (Progress Note) - Constitutional Vitals: Period Temp Pulse Resp BP Sys/Huang Pulse Ox Last 24 Hr 96.7 F-98.6 F 95-102 16-20 131-156/71-90 92-99 Exam: Face symmetrical. No swelling of the lips or tongue. Neck. Symmetrical. No meningismus. Lymphatics. No submandibular cervical or supraclavicular adenopathy Chest is wheeze free but there is slight loose large airway congestion Heart no gallop Abdomen is nontender and nondistended; bowel sounds are positive 4 but somewhat hypoactive Lower extremities right calf is slightly larger than the left calf; Doppler venograms were negative Psychiatric... See above. Calm but still confused. Neurologic unchanged. Cranial nerves are intact. Long track motor functions intact. Plan: 05/06/2017. 1. Follow-up echo report when available. 2. Continue present pulmonary treatment. 3. Agree with Lovenox. 4. See orders. 05/07/2017. 1. See today's note above. 2. Would be very helpful to know the source of the patient's bilateral central nervous system embolic disease 05/08/2017. 1. See my note above. 2. CT of the head showed no acute changes 3. CT of abdomen and pelvis showed no new findings. Exam (Progress Note) - Constitutional Vitals: Period Temp Pulse Resp BP Sys/Huang Pulse Ox Last 24 Hr 97.6 F-98.8 F 99-121 16-24 107-184/87-106 92-97 Results - Labs CBC & BMP: 05/08/17 06:45 05/08/17 06:45
[2017-05-08] MEDS ORDERED: ALBUTEROL/IPRATROPIUM 3 ML NEB RESP TX PRN (14:39)
[2017-05-08] MEDS ORDERED: FUROSEMIDE 40 MG/4 ML VIAL IV ONE (15:00)
[2017-05-08] MEDS: LEVOFLOXACIN INJ 500 MG in PREMIX 1 EACH IV SCH (17:22)
[2017-05-08] MEDS: MONTELUKAST 10 MG TABLET PO SCH (17:23)
[2017-05-08] MEDS: PANTOPRAZOLE 40 MG TABLET PO SCH (17:23)
[2017-05-08] MEDS: EZETIMIBE 10 MG TABLET PO SCH (17:23)
[2017-05-08] MEDS: WARFARIN 10 MG TABLET PO SCH (17:24)
[2017-05-08] MEDS: METOPROLOL TARTRATE 5 MG/5 ML VIAL IV SCH ×2 (18:25→19:04)
[2017-05-09] MEDS: METOPROLOL TARTRATE 5 MG/5 ML VIAL IV SCH ×3 (03:09→04:27)
[2017-05-09] MEDS: CLINDAMYCIN INJ 300 MG in PREMIX 1 EACH IV SCH ×5 (03:18→23:48)
[2017-05-09 05:01] LABS: Basophils % 0.4 % (0.0-0.8); Eosinophils # 0.3 10*3/uL (0.0-0.87); Eosinophils % 2.5 % (0.00-10.9); Hematocrit 40.5 VOL% (42.0-52.0); Hemoglobin 14.4 GM/DL (14.0-18.0); Immature Granulocytes % 0.4 %; Immature Granulocytes Absolute 0.04 #; Lymphocytes # 1.6 10*3/uL (1.4-4.0); Lymphocytes % 14.1 % (21.2-54.2); Mean Corpuscular HGB Conc 35.6 GM/DL (32-36); Mean Corpuscular Hemoglobin 27 PG (27-34); Mean Corpuscular Volume 75.1 FL (87-102); Mean Platelet Volume 10.9 FL (9.6-12.0); Monocytes # 1.3 10*3/uL (0.11-0.8); Monocytes % 11.6 % (1.7-12.7); Neutrophils # 7.9 10*3/uL (1.4-7.4); Platelet Count 169 T/CUMM (130-400); Red Blood Count 5.39 MC/CUMM (3.8-5.5); Red Cell Distribution Width 14.6 % (9.3-17.3); White Blood Count 11.1 T/CUMM (4-12)
[2017-05-09 05:29] LABS: INR 3.5
[2017-05-09 05:35] LABS: PT Patient Result 40.1 SECS
[2017-05-09 05:45] LABS: Albumin 3.1 G/DL (3.4-5.0); Bilirubin,Total 0.4 MG/DL (0.2-1.0); Calcium 8.7 MG/DL (8.5-10.1); Magnesium 2.4 MG/DL (1.8-2.4); Osmolality,Calculated 271.2 MOS/KG (273-304); Phosphorous 3.6 MG/DL (2.5-4.9); Potassium 3.9 MMOL/L (3.5-5.1)
--- NOTE | 2017-05-09 07:55 | XRay Report ---
XR chest 1V portable Indication: Pleural effusion Comparison: Chest x-ray 05/06/2017. Technique: Portable AP chest was performed. Findings: There may be minimal blunting of each costophrenic angle as well as haziness in the right lung base that could reflect the presence of dependent pleural fluid. Airspace disease right lung base additionally could be considered blurring is present secondary to respiratory motion. Chest otherwise demonstrates little change. Impression: 1. Little overall change in the chest. Airspace disease in the right lung base is suggested which could reflect evidence of infection, atypical edema. Small bilateral pleural effusions are not excluded. 05/09/2017 7:52 AM PROCEDURE INTERPRETED AT [facility] DEPARTMENT OF RADIOLOGY Final Report Signed by: Dr. Mynor Talley
--- NOTE | 2017-05-09 08:05 | Pulmonology Progress Note ---
Pulmonary - PN: Subj Interval history: Mr. Juarez is a 72-year-old -[place] male who we saw in initial pulmonary consultation on 05/05/2017. At that time, our impressions were: 1. Altered mental status which is probably secondary to multiple bilateral cerebral emboli. Source is undetermined but would most likely be from the heart or ascending aorta. 2. Possible right lower lung pneumonia. Bacterial versus radiation injury. 3. COPD. Asthma. 4. 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 5. Past history tobacco abuse. Stop smoking 2002 6. History of asbestos exposure 7. Hyperlipidemia 8. High blood pressure 9. Degenerative joint disease 10. Chronic allergic sinusitis 05/06/2017. The patient was seen today along with his brother. Patient is definitely more awake and alert this morning. He is oriented at least to person and place. Carotid ultrasound showed less than 50% stenosis in both ICAs with heterogenous plaque formation. There was antegrade flow in both vertebral arteries. Doppler venograms showed no evidence of deep venous thrombophlebitis within either lower extremity. Echocardiogram was ordered yesterday, but has not yet been done. Chest x-ray today shows a probable right lower lung infiltrate. He is presently being treated with Cleocin and Levaquin. We have asked for sputum, but thus far the patient has not been able to produce a sputum for testing. He has remained afebrile. His white count is normal. Medications have been reviewed. We made no changes today. Labs have been reviewed. No new labs were drawn today. Blood cultures are negative at day 1. 05/07/2017. Patient's pulmonary status is stable today. His mentation is about the same as it was yesterday. Review of microbiology reveals no positive cultures. INR is 1.2. Electrolytes are normal. Creatinine is 0.90 with a BUN of 16. Calcium is 9.1 and magnesium is 2.5. Labs been reviewed. Medicines have been reviewed. Echocardiogram. Ejection fraction 55%. Grade 1/4 diastolic dysfunction. Trace of mitral valve regurgitation with pulmonary artery pressures in the 40-45 % range. Mild to moderate tricuspid regurgitation with slight enlargement of the right atrium with normal size right ventricle. There is no mention of abnormal valves which might be a source of embolic disease.. Based on the distribution of the patient's central nervous system emboli he would think that this would come from either left heart origin of the ascending aorta. Maybe we should consider additional evaluation. 05/08/2017. This patient's mental status was somewhat altered earlier today and a CT scan of the head was done. This showed no acute changes. See report for additional details. Patient also had a CT of the abdomen and pelvis and this showed all lytic lesions in the bone which were present 2013. No other abnormality. Patient had a KUB of the abdomen on 05/07/2017 and it appeared that he had a good bit of fecal retention. Electrolytes normal. Creatinine is 0.9 with a BUN of 12 white count is 12,900 with 79.569.3 lymphs and 8.6 monocytes H& H is 15.0 41.2. Platelets 189,000. Liver function tests are normal. Her previous ammonia level was normal at 16 05/09/2017. This patient was admitted with altered mental status. He had multiple small emboli in the right and left brain. This definitely appeared to be embolic. As expected his carotids were negative. His echocardiogram did not show a definite source of emboli. Emboli most likely would only come from his heart or ascending aorta. We could consider additional evaluation of the aorta and possibly transesophageal echocardiogram. Regardless the patient is going to need to be anticoagulated. He is in a sinus rhythm and is been in a sinus rhythm throughout his hospitalization. He had a follow-up CT of the brain yesterday and this showed nothing new. He remains confused but not agitated. Patient has had adenocarcinoma the superior segment of the right lower lung. This is been treated with radiation. His admit chest x-ray showed right lower lung infiltrate versus a radiation injury. On today's chest x-ray the evolution appears to be secondary to a pneumonia which is not quite resolved. There are no positive cultures. His electrolytes are normal. Glucoses are normal. CBC is normal. INR is prolonged to 3.5. Exam (Progress Note) - Constitutional Vitals: Period Temp Pulse Resp BP Sys/Huang Pulse Ox Last 24 Hr 96.7 F-98.6 F 95-102 16-20 131-156/71-90 92-99 Exam: Face symmetrical. No swelling of the lips or tongue. Neck. Symmetrical. No meningismus. Lymphatics. No submandibular cervical or supraclavicular adenopathy Chest is wheeze free but there is slight loose large airway congestion Heart no gallop Abdomen is nontender and nondistended; bowel sounds are positive 4 but somewhat hypoactive Lower extremities right calf is slightly larger than the left calf; Doppler venograms were negative Psychiatric... See above. Calm but still confused. Neurologic unchanged. Cranial nerves are intact. Long track motor functions intact. Plan: 05/06/2017. 1. Follow-up echo report when available. 2. Continue present pulmonary treatment. 3. Agree with Lovenox. 4. See orders. 05/07/2017. 1. See today's note above. 2. Would be very helpful to know the source of the patient's bilateral central nervous system embolic disease 05/08/2017. 1. See my note above. 2. CT of the head showed no acute changes 3. CT of abdomen and pelvis showed no new findings. 05/09/2017. 1. See today's note above. 2. INR 3.4 on 10 mg of Coumadin daily will hold today. This is probably not a safe level for the patient 3. Continue antibiotics. Still small residual right lower lungInfiltrate Exam (Progress Note) - Constitutional Vitals: Period Temp Pulse Resp BP Sys/Huang Pulse Ox Last 24 Hr 97.4 F-98.8 F 90-128 16-24 107-154/55-92 90-98 Results - Labs CBC & BMP: 05/09/17 04:09 05/09/17 04:09
[2017-05-09] MEDS: ENOXAPARIN 80 MG/0.8 ML SYRINGE SUBCUT SCH ×2 (08:55→20:22)
[2017-05-09] MEDS: methylPREDNISolone SOD SUC 40 MG/1 ML VIAL IV SCH ×2 (08:55→20:19)
[2017-05-09] MEDS: MONTELUKAST 10 MG TABLET PO SCH (08:56)
[2017-05-09] MEDS: EZETIMIBE 10 MG TABLET PO SCH (08:56)
[2017-05-09] MEDS: PANTOPRAZOLE 40 MG TABLET PO SCH (08:56)
[2017-05-09] MEDS: DEXTROSE 5% NACL 0.45% 1,000 ML IV SCH (09:17)
[2017-05-09] MEDS: LEVOFLOXACIN INJ 500 MG in PREMIX 1 EACH IV SCH (16:50)
--- NOTE | 2017-05-09 17:20 | Hospitalist Progress Note ---
Assessment and Plan (1) CVA (cerebral vascular accident) Status: Acute Current Visit: Yes (2) Altered mental status Status: Acute Current Visit: Yes Hospitalist: Subjective Interval history: The patient was not able to lay still for MRI done today. He did have a swallowing evaluation at the bedside and was not able to protect airway. At this time he has been left n.p.o. will make preparations for NG tube. The patient did have a CT scan of the abdomen done on yesterday that showed some evidence of lytic lesions in the spine suggestive of metastatic process. The patient has a history of known lung CA no fevers or chills. Metabolically stable. INR noted to be elevated today. Coumadin is on hold for tonight. Repeat INR tomorrow. Exam - Constitutional Vitals: Period Temp Pulse Resp BP Sys/Huang Pulse Ox Last 24 Hr 97.4 F-98.4 F 90-115 16-24 109-142/55-97 90-98 General appearance: over weight - Head Head exam: Present: normal inspection - Eye Eye exam: Present: EOMI Pupils: Present: LAZARO - Neck Neck exam: Present: normal inspection - Respiratory Respiratory exam: Present: clear to auscultation bilaterally - Cardiovascular Cardiovascular exam: Present: regular rate and rhythm - GI/Abdominal GI/Abdominal exam: Present: normal bowel sounds - Extremities Exam Extremities exam: Present: normal inspection, edema (Left arm is swollen.) - Psychiatric Psychiatric exam: Present: flat affect - Skin Skin exam: Present: normal color Results - Labs CBC & BMP: 05/09/17 04:09 05/09/17 04:09
--- NOTE | 2017-05-09 19:13 | XRay Report ---
History: Nasogastric tube placement Date: 05/09/2017 at 6:35 PM Study: Chest x-ray single view portable Comparison exam: 05/09/2017 at 6:09 AM The nasogastric tube overlies the proximal to mid stomach body level. The chest is otherwise unchanged from the earlier exam. Impression: The nasogastric tube is well-positioned with its tip at the proximal to mid stomach body level PROCEDURE INTERPRETED AT [facility] DEPARTMENT OF RADIOLOGY Final Report Signed by: Dr. Niurka Rueda
[2017-05-10] MEDS: DEXTROSE 5% NACL 0.45% 1,000 ML IV SCH ×3 (01:56→22:00)
[2017-05-10 05:04] LABS: Basophils % 0.1 % (0.0-0.8); Eosinophils % 0.1 % (0.00-10.9); Hematocrit 42.8 VOL% (42.0-52.0); Hemoglobin 15.3 GM/DL (14.0-18.0); Immature Granulocytes % 0.7 %; Immature Granulocytes Absolute 0.09 #; Lymphocytes # 1.2 10*3/uL (1.4-4.0); Lymphocytes % 9.3 % (21.2-54.2); Mean Corpuscular HGB Conc 35.7 GM/DL (32-36); Mean Corpuscular Hemoglobin 27 PG (27-34); Mean Corpuscular Volume 75.4 FL (87-102); Mean Platelet Volume 10.1 FL (9.6-12.0); Monocytes # 0.6 10*3/uL (0.11-0.8); Monocytes % 4.9 % (1.7-12.7); Neutrophils # 10.9 10*3/uL (1.4-7.4); Neutrophils % 84.9 % (38.7-73.9); Platelet Count 150 T/CUMM (130-400); Red Blood Count 5.68 MC/CUMM (3.8-5.5); Red Cell Distribution Width 14.5 % (9.3-17.3); White Blood Count 12.8 T/CUMM (4-12)
[2017-05-10 05:36] LABS: Calcium 8.8 MG/DL (8.5-10.1); Osmolality,Calculated 277.2 MOS/KG (273-304); Potassium 4.3 MMOL/L (3.5-5.1)
[2017-05-10 05:38] LABS: INR 4.9
[2017-05-10 05:46] LABS: PT Patient Result 56.9 SECS; Partial Thromboplastin Time 42.1 SECS (0-40)
[2017-05-10] MEDS: CLINDAMYCIN INJ 300 MG in PREMIX 1 EACH IV SCH ×4 (05:58→23:29)
[2017-05-10] MEDS: PANTOPRAZOLE 40 MG TABLET PO SCH (08:38)
[2017-05-10] MEDS: methylPREDNISolone SOD SUC 40 MG/1 ML VIAL IV SCH ×2 (08:38→20:17)
[2017-05-10] MEDS: EZETIMIBE 10 MG TABLET PO SCH (08:38)
[2017-05-10] MEDS: MONTELUKAST 10 MG TABLET PO SCH (08:38)
[2017-05-10] MEDS ORDERED: DEXTROSE 50% 25 GM/50 ML VIAL IV PRN (08:46)
[2017-05-10] MEDS ORDERED: GLUCAGON 1 MG VIAL IM PRN (08:46)
--- NOTE | 2017-05-10 08:46 | Pulmonology Progress Note ---
Pulmonary - PN: Subj Interval history: This 72-year-old man is in with stroke pneumonia and COPD. He started to talk a little bit today. His PT/INR is hyper prolonged and Coumadin is being held. No other new problems. Exam (Progress Note) - Constitutional Vitals: Period Temp Pulse Resp BP Sys/Huang Pulse Ox Last 24 Hr 97.4 F-98.4 F 106-116 18-20 131-180/68-97 93-96 Exam: Patient says a word or 2. He is alert. Vital signs normal. Pupils react to light. Throat is clear. Neck supple bruits. Chest reveals a few scattered rhonchi. Equal breath sounds. Heart normal rate rhythm no murmurs. Abdomen soft nontender no masses. Extremities no clubbing cyanosis edema. Calves nontender Results - Labs CBC & BMP: 05/10/17 04:37 05/10/17 04:37 Lab Results: I have reviewed the past 24 hour labs Assessment and Plan (1) CVA (cerebral vascular accident) Status: Acute Assessment and plan: Defer to neurology. Patient starting to talk a little bit. Will need some physical therapy. Current Visit: Yes (2) Right lower lobe pneumonia Status: Acute Assessment and plan: Continuing empiric antibiotics. Presently on Cleocin and Levaquin. Current Visit: Yes (3) COPD (chronic obstructive pulmonary disease) Status: Acute Assessment and plan: Continuing bronchodilators as needed. Current Visit: Yes
[2017-05-10] MEDS: ENOXAPARIN 80 MG/0.8 ML SYRINGE SUBCUT SCH ×2 (09:31→20:20)
--- NOTE | 2017-05-10 10:45 | Hospitalist Progress Note ---
Hospitalist: Subjective Interval history: Overnight, there were no issues. Patient is more talkative today. He states that he was admitted for a "mini stroke". He knows his name/year/location. He also states that his right arm has been swollen. He has no further complaints. Exam - Constitutional Vitals: Period Temp Pulse Resp BP Sys/Huang Pulse Ox Last 24 Hr 97.4 F-98.4 F 106-116 18-20 131-180/68-97 93-96 General appearance: normal weight, no acute distress - Head Head exam: Present: normal inspection, atraumatic - Eye Eye exam: Present: EOMI Pupils: Present: LAZARO - ENT ENT exam: Present: normal exam (+NGT) - Neck Neck exam: Present: normal inspection - Respiratory Respiratory exam: Present: clear to auscultation bilaterally, prolonged expiratory phase - Cardiovascular Cardiovascular exam: Present: regular rate and rhythm - GI/Abdominal GI/Abdominal exam: Present: normal bowel sounds, soft. Absent: tenderness - Extremities Exam Extremities exam: Present: edema (trace edema in BLE, RUE is swollen and tight; no increased warmth; palpable radial pulse) - Neurological Exam Neurological exam: Present: alert, oriented X3 - Psychiatric Psychiatric exam: Present: normal affect, normal mood (flaccid LUE) Results - Labs CBC & BMP: 05/10/17 04:37 05/10/17 04:37 - Impressions 1. Acute encephalopathy, likely 2nd to CVA; mental status is improving; continue to monitor 2. Acute CVA: unable to lay down for MRI; coumadin on hold given INR of 4.9. On statin; would benefit from asa; failed swallow study; on tube feedings via NGT; would likely benefit from repeat swallow evaluation since mental status has improved. PT/OT 3. Lytic bone lesions: lumbar and right iliac bone; patient with history of lung cancer; corrected calcium is normal; will consult oncology 4. RUE swelling: will obtain RUE venous duplex; he is supratherapeutic on coumadin 5. RLL pneumonia: on levaquin and cleocin; afebrile; leukocytosis stable 6. COPD, stable on steroids/bronchodilators/antibiotics/oxygen
--- NOTE | 2017-05-10 12:50 | Ultrasound Report ---
History is right upper extremity swelling Right upper extremity venous Doppler performed with grayscale, spectral Doppler, and color flow analysis performed and interpreted. No evidence of echogenic, noncompressible thrombus seen in the right internal jugular, axillary, cephalic, basilic, or brachial veins No secondary signs of venous thrombus seen in the right subclavian vein Impression: No evidence of right upper extremity venous thrombosis identified. PROCEDURE INTERPRETED AT [facility] DEPARTMENT OF RADIOLOGY Final Report Signed by: Dr. Madelaine Christiansen
[2017-05-10] MEDS: INSULIN REGULAR 100 UNIT/ML SUBCUT SCH ×3 (13:42→23:29)
[2017-05-10] MEDS: LEVOFLOXACIN INJ 500 MG in PREMIX 1 EACH IV SCH (18:04)
--- NOTE | 2017-05-10 18:16 | Nuclear Medicine Report ---
30 mCi technetium 99m MDP utilized History of lung cancer with bone lesions on CT Whole body bone scan performed Visualization is limited by large amount of the presumed urinary contamination and apparent infiltration in the injection site Mild activity in the chest primarily felt to be rib cartilage however one faint area of activity anterolaterally on the left is questionable for a rib lesion.. There is very mildly increased elongated area of activity in the lower posterior rib on the right There are moderate degenerative changes in the left knee and lumbar spine Impression: 1. Mildly limited study. 2 suspected rib lesions are questionable for osseous metastatic disease PROCEDURE INTERPRETED AT [facility] DEPARTMENT OF RADIOLOGY Final Report Signed by: Dr. Madelaine Christiansen
[2017-05-11] MEDS: CLINDAMYCIN INJ 300 MG in PREMIX 1 EACH IV SCH ×3 (05:41→18:28)
[2017-05-11] MEDS: INSULIN REGULAR 100 UNIT/ML SUBCUT SCH ×3 (05:43→18:30)
[2017-05-11 05:58] LABS: Basophils % 0.1 % (0.0-0.8); Eosinophils % 0.2 % (0.00-10.9); Hemoglobin 15.4 GM/DL (14.0-18.0); Immature Granulocytes % 0.8 %; Immature Granulocytes Absolute 0.11 #; Lymphocytes % 6.7 % (21.2-54.2); Mean Corpuscular HGB Conc 35.8 GM/DL (32-36); Mean Corpuscular Hemoglobin 27 PG (27-34); Mean Corpuscular Volume 74.8 FL (87-102); Mean Platelet Volume 11.2 FL (9.6-12.0); Monocytes # 0.8 10*3/uL (0.11-0.8); Monocytes % 5.4 % (1.7-12.7); Neutrophils # 12.7 10*3/uL (1.4-7.4); Neutrophils % 86.8 % (38.7-73.9); Platelet Count 158 T/CUMM (130-400); Red Blood Count 5.75 MC/CUMM (3.8-5.5); Red Cell Distribution Width 14.6 % (9.3-17.3); White Blood Count 14.7 T/CUMM (4-12)
[2017-05-11 06:10] LABS: Partial Thromboplastin Time 33.4 SECS (0-40)
[2017-05-11 06:17] LABS: INR 2.6
[2017-05-11 06:29] LABS: Calcium 8.8 MG/DL (8.5-10.1); Magnesium 2.9 MG/DL (1.8-2.4); Osmolality,Calculated 285.2 MOS/KG (273-304); PT Patient Result 29.4 SECS; Potassium 4.3 MMOL/L (3.5-5.1)
[2017-05-11 07:20] LABS: Phosphorous 3.7 MG/DL (2.5-4.9); Prealbumin 29.8 MG/DL (20-40)
--- NOTE | 2017-05-11 07:58 | Event Note ---
I will plan to see Mr. Juarez later today. His bone scan has been done and I will review this and meet with him to discuss the findings. I am just placing this note since I am going to delay his consult to be done later today due to other obligations this morning. His bone scan did show questionable bony lesions.
[2017-05-11] MEDS: methylPREDNISolone SOD SUC 40 MG/1 ML VIAL IV SCH ×2 (08:34→21:12)
[2017-05-11] MEDS: PANTOPRAZOLE 40 MG TABLET PO SCH (08:34)
[2017-05-11] MEDS: EZETIMIBE 10 MG TABLET PO SCH (08:34)
[2017-05-11] MEDS: MONTELUKAST 10 MG TABLET PO SCH (08:34)
[2017-05-11] MEDS: ENOXAPARIN 80 MG/0.8 ML SYRINGE SUBCUT SCH ×2 (08:46→21:13)
--- NOTE | 2017-05-11 09:39 | Pulmonology Progress Note ---
Pulmonary - PN: Subj Interval history: Mr. Juarez is a 72-year-old -Sammarinese male who we saw in initial pulmonary consultation on 05/05/2017. At that time, our impressions were: 1. Altered mental status which is probably secondary to multiple bilateral cerebral emboli. Source is undetermined but would most likely be from the heart or ascending aorta. 2. Possible right lower lung pneumonia. Bacterial versus radiation injury. 3. COPD. Asthma. 4. 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 5. Past history tobacco abuse. Stop smoking 2002 6. History of asbestos exposure 7. Hyperlipidemia 8. High blood pressure 9. Degenerative joint disease 10. Chronic allergic sinusitis 05/06/2017. The patient was seen today along with his brother. Patient is definitely more awake and alert this morning. He is oriented at least to person and place. Carotid ultrasound showed less than 50% stenosis in both ICAs with heterogenous plaque formation. There was antegrade flow in both vertebral arteries. Doppler venograms showed no evidence of deep venous thrombophlebitis within either lower extremity. Echocardiogram was ordered yesterday, but has not yet been done. Chest x-ray today shows a probable right lower lung infiltrate. He is presently being treated with Cleocin and Levaquin. We have asked for sputum, but thus far the patient has not been able to produce a sputum for testing. He has remained afebrile. His white count is normal. Medications have been reviewed. We made no changes today. Labs have been reviewed. No new labs were drawn today. Blood cultures are negative at day 1. 05/07/2017. Patient's pulmonary status is stable today. His mentation is about the same as it was yesterday. Review of microbiology reveals no positive cultures. INR is 1.2. Electrolytes are normal. Creatinine is 0.90 with a BUN of 16. Calcium is 9.1 and magnesium is 2.5. Labs been reviewed. Medicines have been reviewed. Echocardiogram. Ejection fraction 55%. Grade 1/4 diastolic dysfunction. Trace of mitral valve regurgitation with pulmonary artery pressures in the 40-45 % range. Mild to moderate tricuspid regurgitation with slight enlargement of the right atrium with normal size right ventricle. There is no mention of abnormal valves which might be a source of embolic disease.. Based on the distribution of the patient's central nervous system emboli he would think that this would come from either left heart origin of the ascending aorta. Maybe we should consider additional evaluation. 05/08/2017. This patient's mental status was somewhat altered earlier today and a CT scan of the head was done. This showed no acute changes. See report for additional details. Patient also had a CT of the abdomen and pelvis and this showed all lytic lesions in the bone which were present 2013. No other abnormality. Patient had a KUB of the abdomen on 05/07/2017 and it appeared that he had a good bit of fecal retention. Electrolytes normal. Creatinine is 0.9 with a BUN of 12 white count is 12,900 with 79.569.3 lymphs and 8.6 monocytes H& H is 15.0 41.2. Platelets 189,000. Liver function tests are normal. Her previous ammonia level was normal at 16 05/09/2017. This patient was admitted with altered mental status. He had multiple small emboli in the right and left brain. This definitely appeared to be embolic. As expected his carotids were negative. His echocardiogram did not show a definite source of emboli. Emboli most likely would only come from his heart or ascending aorta. We could consider additional evaluation of the aorta and possibly transesophageal echocardiogram. Regardless the patient is going to need to be anticoagulated. He is in a sinus rhythm and is been in a sinus rhythm throughout his hospitalization. He had a follow-up CT of the brain yesterday and this showed nothing new. He remains confused but not agitated. Patient has had adenocarcinoma the superior segment of the right lower lung. This is been treated with radiation. His admit chest x-ray showed right lower lung infiltrate versus a radiation injury. On today's chest x-ray the evolution appears to be secondary to a pneumonia which is not quite resolved. There are no positive cultures. His electrolytes are normal. Glucoses are normal. CBC is normal. INR is prolonged to 3.5. 05/11/2017. Patient was seen with his brother. Patient's a little more alert. He was able to answer a few more questions than before. He has an NG tube down. Swallowing is a new problem for him. Bone scan is noted. Doppler venogram showed no evidence of deep venous thrombophlebitis. Electrolytes are normal. Creatinine is 1.2. BUN is 32. White blood cell count is 14,700 with 86.8 segs. H&H 15.4/43.0. Patient is afebrile times many days. There are no positive cultures. INR is dropped to 2.6. Today I will restart Coumadin 5 mg daily. Previously the patient was on 10 mg daily. We do not know the source of bilateral cerebral nervous system emboli. do we need transesophageal echocardiogram. Exam (Progress Note) - Constitutional Vitals: Period Temp Pulse Resp BP Sys/Huang Pulse Ox Last 24 Hr 96.7 F-98.6 F 95-102 16-20 131-156/71-90 92-99 Exam: Face symmetrical. No swelling of the lips or tongue. Neck. Symmetrical. No meningismus. Lymphatics. No submandibular cervical or supraclavicular adenopathy Chest is wheeze free but there is slight loose large airway congestion Heart no gallop Abdomen is nontender and nondistended; bowel sounds are positive 4 but somewhat hypoactive Lower extremities right calf is slightly larger than the left calf; Doppler venograms were negative Psychiatric... See above. Calm but still confused. Neurologic unchanged. Cranial nerves are intact. Long track motor functions intact. Plan: 05/06/2017. 1. Follow-up echo report when available. 2. Continue present pulmonary treatment. 3. Agree with Lovenox. 4. See orders. 05/07/2017. 1. See today's note above. 2. Would be very helpful to know the source of the patient's bilateral central nervous system embolic disease 05/08/2017. 1. See my note above. 2. CT of the head showed no acute changes 3. CT of abdomen and pelvis showed no new findings. 05/09/2017. 1. See today's note above. 2. INR 3.4 on 10 mg of Coumadin daily will hold today. This is probably not a safe level for the patient 3. Continue antibiotics. Still small residual right lower lungInfiltrate 05/11/2017. 1. See my note for today above. 2. Restart Coumadin 5 mg daily 3. Source of cerebral emboli is unknown. Should be either the heart the proximal aorta. Should we do additional 10 Exam (Progress Note) - Constitutional Vitals: Period Temp Pulse Resp BP Sys/Huang Pulse Ox Last 24 Hr 97.6 F-99.4 F 100-115 18-20 140-158/66-92 92-96 Results - Labs CBC & BMP: 05/11/17 04:37 05/11/17 04:37
--- NOTE | 2017-05-11 10:03 | General Surgery Consult Note ---
Assessment and Plan - Time spent with patient Time spent with patient: Less than 30 minutes (1) Pain and swelling of right forearm Status: Acute Assessment and plan: Impression: Marked swelling with blistering of the right forearm assumed to be secondary to infiltrated IV. Plan: We will start some local care may have to debride those blisters at some point. We will get an ultrasound to see if there is any proximal occlusive process. Current Visit: Yes History of Present Illness Chief complaint: Swelling of the right forearm and blister History of present illness: Mr. Juarez is a 72 year old male -[place] who apparently had a CVA now has some swallowing problems getting a feeding tube in place. Will consult to see him for swelling of the right forearm with blistering. The right forearm looks a little tense and there are blisters on the anterior medial aspect of it. The nurses do report that he probably had an IV in there and was assuming that it was too infiltrated. Little bit concerned that the arm itself is a little bit tense also. Certainly will always worry about vascular compromise in the hand will see what we can do to improve this get some ultrasounds and see what is going on with this process. Home Medications Medication Instructions Recorded Confirmed Type Ezetimibe [Zetia] 10 mg PO DAILY 05/07/16 05/04/17 History Montelukast Tab [Singulair Tab] 10 mg PO DAILY 05/07/16 05/04/17 History Pantoprazole Tab [Protonix Tab] 40 mg PO DAILY 05/07/16 05/04/17 History traMADol TAB [Ultram] 50 mg PO TID PRN 05/07/16 05/04/17 History Oxybutynin Xl [Ditropan Xl] 10 mg PO DAILY 06/07/16 05/04/17 History Ipratropium/Albuterol Inhaler 1 puff INH QID PRN 06/10/16 05/04/17 History [Combivent Respimat Inhaler] Lactulose Liquid [Chronulac] 2 tablespoon PO TID PRN 06/10/16 05/04/17 History predniSONE TAB [PredniSONE] 20 mg PO DAILY #10 tablet 01/02/17 05/04/17 Rx Umeclidinium Brm/Vilanterol Tr 1 puff INH DAILY 05/04/17 05/04/17 History [Anoro Ellipta] Allergies Allergy/AdvReac Type Severity Reaction Status Date / Time No Known Allergies Allergy Verified 05/04/17 09:35 Medical,Surgical,& Family Hx - Medical History Cardio: History of: Hypertension Neurology: History of: Peripheral Neuropathy No history of: Seizures HEENT: History of: Ear Problem ([place]), Eye Problem ([place]), Dental Problems ( [place]) Endocrine: History of: Dyslipidemia Respiratory: History of: Asthma, Bronchitis, COPD, Lung Cancer, Respiratory Problems (RT LUNG NODULE, SHORTNESS OF BREATH) Genitourinary: History of: Bladder Problem (URGENCY), Prostate Problems ([place]) Gastrointestinal: History of: GERD, Polyps (REMOVED), GI Problems (CONSTIPATION) Musculoskeletal: History of: Back/Neck Problems (BACK DR TORRES LAST INJECTION 2015.) Other: History of: Cancer (PROSTATE CANCER, RT LUNG POSSIBLE) - Surgical History Abdominal Surgeries: Surgical HX of: Abdominal Surgery, Appendectomy (1976), Colonoscopy Orthopedic Surgeries: Surgical HX of;: Spinal Surgery (BACK SURGERY 1985) - Family History Family History: Reports;: Family Diabetes (SISTER, MOTHER), Family Hypertension (MOTHER, SISTER, BROTHER) - Social History Smoking Status: Unknown if ever smoked Frequency of Alcohol Use: Unknown Type of Drug Use: None, Unknown 12 point system: reviewed and no additional remarkable complaints except as stated Exam - Constitutional Vitals: Period Temp Pulse Resp BP Sys/Huang Pulse Ox Last 24 Hr 97.6 F-99.4 F 100-115 18-20 140-158/66-92 92-96 General appearance: mild distress - Head Head exam: Present: normal inspection - Neck Neck exam: Present: normal inspection - Respiratory Respiratory exam: Present: rales, rhonchi - Cardiovascular Cardiovascular exam: Present: RRR - GI/Abdominal GI/Abdominal exam: Present: hypoactive bowel sounds, soft. Absent: distended, tenderness - Extremities Exam Extremities exam: Present: edema (Right forearm possibly right arm also), other (Blistering of the medial anterior portion of the right forearm that is swelling ) - Back Exam Back exam: Present: normal inspection - Neurological Exam Neurological exam: Present: alert, oriented X3, CN II-XII intact - Skin Skin exam: Present: normal color, warm, dry Results - Labs CBC & BMP: 05/11/17 04:37 05/11/17 04:37 Lab Results: I have reviewed the past 24 hour labs
[2017-05-11] MEDS ORDERED: CHLORHEXIDINE 4% SOLN 118 ML BOTTLE TOP ONE (10:08)
[2017-05-11] MEDS: ALBUTEROL/IPRATROPIUM 3 ML NEB RESP TX SCH ×4 (11:15→23:41)
--- NOTE | 2017-05-11 12:09 | Ultrasound Report ---
US extremity nonvasc RT Indication: Right forearm swelling. ULTRASOUND RIGHT FOREARM, NONVASCULAR Description: [place] scale ultrasound evaluation of the right forearm shows extensive edema from the elbow to the wrist. No fluid collections are shown and there is no mass or lymphadenopathy identified. Impression: Extensive edema throughout the right forearm subcutaneous tissues. Query cellulitis. PROCEDURE INTERPRETED AT [facility] DEPARTMENT OF RADIOLOGY Final Report Signed by: Gene Crockett M.D.
[2017-05-11] MEDS: SKIN HEALING OINT (AQUAPHOR) 50 GM TUBE TOP PRN (12:43)
--- NOTE | 2017-05-11 15:33 | Hospitalist Progress Note ---
Assessment and Plan (1) Altered mental status Status: Resolved Assessment and plan: Patient is alert and oriented and will speak and answer questions. Continue to monitor for changes. Current Visit: Yes (2) CVA (cerebral vascular accident) Status: Acute Assessment and plan: Improving, patient continues to work with PT and OT. Patient remains n.p.o., repeat swallow study today. Current Visit: Yes (3) Right lower lobe pneumonia Status: Acute Assessment and plan: Leukocytosis improving, remains afebrile, continue Clinda/ Levaquin. Blood cultures negative today. Current Visit: Yes (4) COPD (chronic obstructive pulmonary disease) Status: Chronic Assessment and plan: Patient presently states he is short of breath and wheezing, start duo nebs every 4 hours as needed short of breath/wheezing. DC fluids at this time due to edematous tissues. Current Visit: Yes (5) Pain and swelling of right forearm Status: Acute Assessment and plan: Surgery has been consulted, they ordered a ultrasound of the distal upper extremities which shows edema and subcutaneous tissues. Possible debridement if necessary. Appreciate their assistance. Current Visit: Yes Hospitalist: Subjective Interval history: Patient resting comfortably in bed, in no acute distress and no acute events overnight. Patient states he still continues to have some shortness of breath and trouble swallowing. As of now, he is receiving nutrition through an oral nasogastric tube, and being kept n.p.o. His bone scan showed some questionable bony metastatic lesions and Dr. Macias will consult with patient later today. Patient continues PT and OT. Venous ultrasound performed of the upper extremity showed no acute embolic process. Ultrasound of forearm shows only subcutaneous edema. Patient denies nausea, vomiting, diarrhea, chest pain. Exam - Constitutional Vitals: Period Temp Pulse Resp BP Sys/Huang Pulse Ox Last 24 Hr 97.7 F-99.4 F 99-115 18-20 140-158/66-92 92-97 General appearance: over weight - Head Head exam: Present: normocephalic - Eye Pupils: Present: LAZARO - Neck Neck exam: Present: normal inspection - Respiratory Respiratory exam: Present: wheezes - Cardiovascular Cardiovascular exam: Present: regular rate and rhythm - GI/Abdominal GI/Abdominal exam: Present: normal bowel sounds, soft - Extremities Exam Extremities exam: Present: edema (Edema of upper extremities, no edema present in lower extremities) - Neurological Exam Neurological exam: Present: alert, oriented X3 - Psychiatric Psychiatric exam: Present: normal affect - Skin Skin exam: Present: warm, vesicles (Vesicles on distal upper extremities) Results - Labs CBC & BMP: 05/11/17 04:37 05/11/17 04:37 Lab Results: I have reviewed the past 24 hour labs
--- NOTE | 2017-05-11 16:53 | Oncology Consult Note ---
Assessment and Plan - Time spent with patient Time spent with patient: Greater than 30 minutes (1) Lung cancer Status: Acute Assessment and plan: I am very concerned that these bony lesions are metastatic disease. These can be better worked up with a PET scan once he is discharged in better condition. I think the more pressing issue at this time is to determine if these areas on his brain are truly embolic or metastatic. He has not had a contrasted MRI and I think this would be the best way to look at this. I do not see a contraindication to contrast so I will place an order for this at this time. Current Visit: Yes (2) Bone metastases Status: Acute Current Visit: Yes (3) Altered mental status Status: Resolved Current Visit: Yes (4) CVA (cerebral vascular accident) Status: Acute Current Visit: Yes (5) COPD (chronic obstructive pulmonary disease) Status: Chronic Current Visit: Yes History of Present Illness History of present illness: Mr. Juarez is a 72 year old male with a history of right-sided lung adenocarcinoma that underwent targeted radiotherapy completed in September 2016. He is admitted now with strokelike symptoms. An MRI brain without contrast showed bilateral diffuse areas of acute ischemia consistent with embolic stroke. Given the lack of contrast, it is difficult to rule out metastatic disease. He underwent a CT chest scan in mid April that showed a T2 and midsternal lytic lesion that was very concerning for malignancy. It was also noted to be bilateral hilar mediastinal lymph nodes. There is questionable pulmonary nodules noted. Oncology has been consulted to help further workup his bony findings. Bone scan done yesterday showed only 2 questionable areas in his rib cage. This is low yield given that his lesions are lytic in nature. He was awake on my exam today but I am unsure how much he understands. He does seem to recall some of his previous history. Briefly told him that we are very concerned for metastatic lung cancer and this would magalys a very poor prognosis. I told him at this point his acute strokelike issues need to resolve before we even consider any type of treatment. I think it is worth considering that his findings on head imaging could be metastatic disease. Home Medications Medication Instructions Recorded Confirmed Type Ezetimibe [Zetia] 10 mg PO DAILY 05/07/16 05/04/17 History Montelukast Tab [Singulair Tab] 10 mg PO DAILY 05/07/16 05/04/17 History Pantoprazole Tab [Protonix Tab] 40 mg PO DAILY 05/07/16 05/04/17 History traMADol TAB [Ultram] 50 mg PO TID PRN 05/07/16 05/04/17 History Oxybutynin Xl [Ditropan Xl] 10 mg PO DAILY 06/07/16 05/04/17 History Ipratropium/Albuterol Inhaler 1 puff INH QID PRN 06/10/16 05/04/17 History [Combivent Respimat Inhaler] Lactulose Liquid [Chronulac] 2 tablespoon PO TID PRN 06/10/16 05/04/17 History predniSONE TAB [PredniSONE] 20 mg PO DAILY #10 tablet 01/02/17 05/04/17 Rx Umeclidinium Brm/Vilanterol Tr 1 puff INH DAILY 05/04/17 05/04/17 History [Anoro Ellipta] Allergies Allergy/AdvReac Type Severity Reaction Status Date / Time No Known Allergies Allergy Verified 05/04/17 09:35 Medical,Surgical,& Family Hx - Medical History Cardio: History of: Hypertension Neurology: History of: Peripheral Neuropathy No history of: Seizures HEENT: History of: Ear Problem ([place]), Eye Problem (GLASSES), Dental Problems ( FULL SET) Endocrine: History of: Dyslipidemia Respiratory: History of: Asthma, Bronchitis, COPD, Lung Cancer, Respiratory Problems (RT LUNG NODULE, SHORTNESS OF BREATH) Genitourinary: History of: Bladder Problem (URGENCY), Prostate Problems ([place]) Gastrointestinal: History of: GERD, Polyps (REMOVED), GI Problems (CONSTIPATION) Musculoskeletal: History of: Back/Neck Problems (BACK DR TORRES LAST INJECTION 2015.) Other: History of: Cancer (PROSTATE CANCER, RT LUNG POSSIBLE) - Surgical History Abdominal Surgeries: Surgical HX of: Abdominal Surgery, Appendectomy (1976), Colonoscopy Orthopedic Surgeries: Surgical HX of;: Spinal Surgery (BACK SURGERY 1985) - Family History Family History: Reports;: Family Diabetes (SISTER, MOTHER), Family Hypertension (MOTHER, SISTER, BROTHER) - Social History Smoking Status: Unknown if ever smoked Frequency of Alcohol Use: Unknown Type of Drug Use: None, Unknown ROS unobtainable: due to mental status Exam - Constitutional Vitals: Period Temp Pulse Resp BP Sys/Huang Pulse Ox Last 24 Hr 97.7 F-98.2 F 99-117 18-20 140-158/66-92 92-97 General appearance: normal weight, no acute distress - Head Head Exam: Present: normocephalic, atraumatic - Eye Eye Exam: Present: EOMI Pupils: Present: PERRL - ENT ENT exam: Present: normal exam, normal oropharynx - Neck Neck exam: Absent: lymphadenopathy, thyromegaly - Respiratory Respiratory exam: Present: CTAB. Absent: wheezes - Cardiovascular Cardiovascular exam: Present: RRR. Absent: JVD - GI/Abdominal GI/Abdominal exam: Present: soft. Absent: ascites, distended, mass - Neurological Exam Neurological exam: Present: altered - Skin Skin exam: Present: warm, dry Results - Labs CBC & BMP: 05/11/17 04:37 05/11/17 04:37 Lab Results: I have reviewed the past 24 hour labs - Diagnostic Findings Procedure: CT Abdomen and Pelvis: report reviewed by me, CT - chest: report reviewed by me, MRI: report reviewed by me
[2017-05-11] MEDS: LEVOFLOXACIN INJ 500 MG in PREMIX 1 EACH IV SCH (18:30)
[2017-05-11] MEDS: WARFARIN 5 MG TABLET PO SCH (18:30)
[2017-05-11] MEDS: hydrALAZINE 20 MG/1 ML VIAL IV PRN (21:13)
[2017-05-12] MEDS: INSULIN REGULAR 100 UNIT/ML SUBCUT SCH ×4 (00:31→17:29)
[2017-05-12] MEDS: CLINDAMYCIN INJ 300 MG in PREMIX 1 EACH IV SCH ×4 (00:31→17:28)
[2017-05-12] MEDS: ALBUTEROL/IPRATROPIUM 3 ML NEB RESP TX SCH ×6 (03:28→23:25)
--- NOTE | 2017-05-12 08:04 | Oncology Progress Note ---
Assessment and Plan (1) Bone metastases Status: Acute Current Visit: Yes (2) Altered mental status Status: Resolved Current Visit: Yes (3) CVA (cerebral vascular accident) Status: Acute Current Visit: Yes (4) COPD (chronic obstructive pulmonary disease) Status: Chronic Current Visit: Yes (5) Lung cancer Status: Acute Current Visit: Yes Oncology Subjective PN Interval history: I revisited with Mr. Metzger this morning. There was still no family present at bedside. I have ordered an MRI of his brain to be done today with and without contrast to be more certain of these areas seen on his recent head imaging are not metastatic disease. I will be out of town after lunch today and will be back next Tuesday. If his MRI does show definitive brain metastases he will need radiation oncology consult if hospice is not pursued. His radiation therapy could be done via a rehab center if that is still the direction his primary doctors plan on going to pursue. I will be happy to see him in clinic at some point in the next few weeks to likely arrange a PET scan to further evaluate his questionable bony lesions. His biggest issue at this time is his current neurologic status. I am uncertain that he will ever be a candidate for any type of palliative therapy if his physical condition does not improve. In all honesty, if any type of metastases are found whether brain or bone, he will be best served by hospice if he and his family are agreeable. Exam - Constitutional Vitals: Period Temp Pulse Resp BP Sys/Huang Pulse Ox Last 24 Hr 97.3 F-98.2 F 99-117 16-20 147-172/81-89 92-99 General appearance: normal weight, no acute distress - Head Head Exam: Present: normocephalic, atraumatic - Respiratory Respiratory exam: Present: CTAB. Absent: wheezes - Cardiovascular Cardiovascular exam: Present: RRR. Absent: JVD - GI/Abdominal GI/Abdominal exam: Present: soft. Absent: ascites, distended, mass - Neurological Exam Neurological exam: Present: altered - Skin Skin exam: Present: warm, dry Results - Labs CBC & BMP: 05/11/17 04:37 05/11/17 04:37
[2017-05-12] MEDS: EZETIMIBE 10 MG TABLET PO SCH (08:35)
[2017-05-12] MEDS: methylPREDNISolone SOD SUC 40 MG/1 ML VIAL IV SCH ×2 (08:35→21:06)
[2017-05-12] MEDS: ENOXAPARIN 80 MG/0.8 ML SYRINGE SUBCUT SCH ×2 (08:35→21:06)
[2017-05-12] MEDS: MONTELUKAST 10 MG TABLET PO SCH (08:35)
--- NOTE | 2017-05-12 08:41 | Hospitalist Progress Note ---
Assessment and Plan (1) CVA (cerebral vascular accident) Status: Acute Current Visit: Yes (2) Altered mental status Status: Resolved Current Visit: Yes (3) COPD (chronic obstructive pulmonary disease) Status: Chronic Current Visit: Yes (4) Bone metastases Status: Acute Assessment and plan: Further workup directed by oncology. Current Visit: Yes (5) Lung cancer Status: Chronic Current Visit: Yes Hospitalist: Subjective Interval history: The patient is much more awake and alert today. He is able to answer yes or no questions. Able to move his all of his extremities. He continues with an NG tube and tolerating his tube feeds. The plan is for repeat swallowing evaluation today. He has also been evaluated by Dr. Quick from oncology. At this time continuing to move forward with further discharge planning. CBC BMP in a.m. Exam - Constitutional Vitals: Period Temp Pulse Resp BP Sys/Huang Pulse Ox Last 24 Hr 97.3 F-98.2 F 99-117 16-20 141-172/79-89 92-99 General appearance: over weight - Head Head exam: Present: normal inspection - ENT ENT exam: Present: normal exam, other (NG tube in place) - Neck Neck exam: Present: normal inspection - Respiratory Respiratory exam: Present: clear to auscultation bilaterally - Cardiovascular Cardiovascular exam: Present: regular rate and rhythm - GI/Abdominal GI/Abdominal exam: Present: normal bowel sounds - Extremities Exam Extremities exam: Present: full ROM, edema (Left upper extremity with swelling.) - Psychiatric Psychiatric exam: Present: normal affect Results - Labs CBC & BMP: 05/11/17 04:37 05/11/17 04:37
[2017-05-12] MEDS: PANTOPRAZOLE 40 MG VIAL IV SCH (08:44)
--- NOTE | 2017-05-12 09:08 | General Surgery Progress Note ---
Assessment and Plan - Time spent with patient Time spent with patient: Less than 30 minutes (1) Cellulitis of right upper extremity Status: Acute Assessment and plan: 05/12/2017. Right upper extremity cellulitis. No evidence of DVT. This may be somewhat related to dependency versus IV infiltration. We see no obvious wounds or abrasions, and he gives no known source of trauma. We will continue antibiotics, local care and light compression, elevation, and close observation. This should resolve but will be available in case there are changes Current Visit: Yes Subjective Patient reports: Present: other (Patient is more alert today. He says he is " to himself" and his only complaint is that he has a "headache in the back of his head.") Exam - Constitutional Vitals: Period Temp Pulse Resp BP Sys/Huang Pulse Ox Last 24 Hr 97.3 F-98.2 F 99-117 16-20 141-172/79-89 92-99 General appearance: no acute distress - Extremities Exam Extremities exam: Present: other (Right forearm edema is less. There is less induration in the arm is not as tense. There is no advancing erythema. There are a few small superficial blisters, but no gross purulence. It is not unusually tender.) Results - Labs CBC & BMP: 05/11/17 04:37 05/11/17 04:37 Lab Results: I have reviewed the past 24 hour labs (Labs noted.) - Diagnostic Findings Procedure: Ultrasound: report reviewed by me (Venous Doppler of the right upper extremity negative for DVT.)
--- NOTE | 2017-05-12 10:11 | Pulmonology Progress Note ---
Pulmonary - PN: Subj Interval history: Carlos Alberto Parker, [facility] acting as scribe for Dr. Danny Byrd Mr. Juarez is a 72-year-old -Swiss male who we saw in initial pulmonary consultation on 05/05/2017. At that time, our impressions were: 1. Altered mental status which is probably secondary to multiple bilateral cerebral emboli. Source is undetermined but would most likely be from the heart or ascending aorta. 2. Possible right lower lung pneumonia. Bacterial versus radiation injury. 3. COPD. Asthma. 4. 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 5. Past history tobacco abuse. Stop smoking 2002 6. History of asbestos exposure 7. Hyperlipidemia 8. High blood pressure 9. Degenerative joint disease 10. Chronic allergic sinusitis 05/06/2017. The patient was seen today along with his brother. Patient is definitely more awake and alert this morning. He is oriented at least to person and place. Carotid ultrasound showed less than 50% stenosis in both ICAs with heterogenous plaque formation. There was antegrade flow in both vertebral arteries. Doppler venograms showed no evidence of deep venous thrombophlebitis within either lower extremity. Echocardiogram was ordered yesterday, but has not yet been done. Chest x-ray today shows a probable right lower lung infiltrate. He is presently being treated with Cleocin and Levaquin. We have asked for sputum, but thus far the patient has not been able to produce a sputum for testing. He has remained afebrile. His white count is normal. 05/07/2017. Patient's pulmonary status is stable today. His mentation is about the same as it was yesterday. Review of microbiology reveals no positive cultures. INR is 1.2. Electrolytes are normal. Creatinine is 0.90 with a BUN of 16. Calcium is 9.1 and magnesium is 2.5. Labs been reviewed. Medicines have been reviewed. Echocardiogram. Ejection fraction 55%. Grade 1/4 diastolic dysfunction. Trace of mitral valve regurgitation with pulmonary artery pressures in the 40-45 % range. Mild to moderate tricuspid regurgitation with slight enlargement of the right atrium with normal size right ventricle. There is no mention of abnormal valves which might be a source of embolic disease.. Based on the distribution of the patient's central nervous system emboli he would think that this would come from either left heart origin of the ascending aorta. Maybe we should consider additional evaluation. 05/08/2017. This patient's mental status was somewhat altered earlier today and a CT scan of the head was done. This showed no acute changes. See report for additional details. Patient also had a CT of the abdomen and pelvis and this showed all lytic lesions in the bone which were present 2013. No other abnormality. Patient had a KUB of the abdomen on 05/07/2017 and it appeared that he had a good bit of fecal retention. Electrolytes normal. Creatinine is 0.9 with a BUN of 12 white count is 12,900 with 79.569.3 lymphs and 8.6 monocytes H& H is 15.0 41.2. Platelets 189,000. Liver function tests are normal. Her previous ammonia level was normal at 16 05/09/2017. This patient was admitted with altered mental status. He had multiple small emboli in the right and left brain. This definitely appeared to be embolic. As expected his carotids were negative. His echocardiogram did not show a definite source of emboli. Emboli most likely would only come from his heart or ascending aorta. We could consider additional evaluation of the aorta and possibly transesophageal echocardiogram. Regardless the patient is going to need to be anticoagulated. He is in a sinus rhythm and is been in a sinus rhythm throughout his hospitalization. He had a follow-up CT of the brain yesterday and this showed nothing new. He remains confused but not agitated. Patient has had adenocarcinoma the superior segment of the right lower lung. This is been treated with radiation. His admit chest x-ray showed right lower lung infiltrate versus a radiation injury. On today's chest x-ray the evolution appears to be secondary to a pneumonia which is not quite resolved. There are no positive cultures. His electrolytes are normal. Glucoses are normal. CBC is normal. INR is prolonged to 3.5. 05/11/2017. Patient was seen with his brother. Patient's a little more alert. He was able to answer a few more questions than before. He has an NG tube down. Swallowing is a new problem for him. Bone scan is noted. Doppler venogram showed no evidence of deep venous thrombophlebitis. Electrolytes are normal. Creatinine is 1.2. BUN is 32. White blood cell count is 14,700 with 86.8 segs. H&H 15.4/43.0. Patient is afebrile times many days. There are no positive cultures. INR is dropped to 2.6. Today I will restart Coumadin 5 mg daily. Previously the patient was on 10 mg daily. We do not know the source of bilateral cerebral nervous system emboli. Do we need transesophageal echocardiogram? 05/12/2017. The patient was seen today along with his nurse. He is awake, alert , and will answer questions. He states he feels a little bit better today. Dr. Quick's note has been reviewed. He feels that the patient needs an MRI of the brain with and without contrast to better determine if the area seen on recent head imaging are or are not metastatic disease. We certainly agree with this. This is been ordered for later on today. Dr. Woo and Vidhya Anderson, CLAIM REVIEW MEDICAL DIRECTOR, are seeing the patient for cellulitis of the right upper extremity. We appreciate their help. There are no positive cultures. No new labs were drawn today. Apparently, his INR has dropped off. These have been reordered. NG tube remains in place with NG tube feedings. He is for repeat speech therapy evaluation today. Medications have been reviewed. We made no changes today. Labs been reviewed. Exam (Progress Note) - Constitutional Vitals: Period Temp Pulse Resp BP Sys/Huang Pulse Ox Last 24 Hr 97.3 F-98.2 F 99-117 16-20 141-172/79-89 92-99 Exam: Chest is wheeze free but there is slight loose large airway congestion Heart no gallop Abdomen is nontender and nondistended; bowel sounds are positive 4 but somewhat hypoactive; NG tube is in place Lower extremities right calf is slightly larger than the left calf; Doppler venograms were negative Psychiatric... See above Neurologic unchanged Plan: Continue present pulmonary treatment. Agree with MRI of the brain today. We have reordered daily INRs. Agree with repeat speech therapy evaluation today. See orders. Results - Labs CBC & BMP: 05/11/17 04:37 05/11/17 04:37
[2017-05-12 11:07] LABS: INR 1.9; PT Patient Result 20.6 SECS
--- NOTE | 2017-05-12 13:04 | Magnetic Resonance Report ---
Exam: MR head/brain w and wo con Date: 05/12/2017 4:56 PM Comparison: 05/05/2017 Indication: Evaluate for brain metastasis history of prostate and lung cancer. Technical: 1.5 Soniya magnet Axial T1 pre-and postcontrast, ADC, DWI, FLAIR, gradient echo and FSE T2 Sagittal T1 precontrast, Coronal postcontrast T1 Contrast: 19 cc Dotarem Findings: Exam reveals abnormal ADC/ diffusion imaging. Findings consistent with an area of infarction involving the right frontal, temporal, parietal lobes with scattered areas of infarction in the left centrum semiovale left parietal lobe posteriorly. Bilateral occipital lobe regions and right cerebellum. The brainstem is unremarkable The cerebral hemispheres exhibit scattered small vessel changes are present in the periventricular subcortical white matter region also noted. Gradient echo image reveals no obvious hemorrhage present. Post continent contrast imaging reveals some gyral enhancement in the right frontal region suggesting component of blood. Perfusion no other areas of contrast-enhancement clearly seen.. The corpus callosum is demonstrated with thinning present. The seventh and eighth cranial nerves and cerebral pontine angles are intact. The pituitary gland, infundibulum and optic chiasm are intact. The paranasal sinuses exhibit normal signal characteristics. The mastoid sinuses are unremarkable. The globes and intra-and extraconal spaces are unremarkable. Impression: 1. Multiple infarcts involving the right frontal temporal parietal lobe bilateral occipital left posterior parietal lobe and right cerebellum. This suggest embolic event or possibly watershed infarction. 2. Findings suggest luxury perfusion present adjacent to the right frontal lobe infarct with mild contrast enhancement. Leptomeningeal meningeal enhancement cannot be totally excluded but seems only a remote possibility. 3. No obvious acute hemorrhage. There is some extension of the parietal lobe infarction with compared to the previous study 4. Small vessel ischemic changes present in the periventricular subcortical white matter regions. PROCEDURE INTERPRETED AT [facility] DEPARTMENT OF RADIOLOGY Final Report Signed by: Dr. Danny Carrion
[2017-05-12] MEDS: ANORO ELLIPTA (Umeclidinium Brm/Vilanterol Tr) 1 PUFF INH SCH ×2 (13:47→13:56)
[2017-05-12] MEDS: LEVOFLOXACIN INJ 500 MG in PREMIX 1 EACH IV SCH (16:20)
[2017-05-12] MEDS: WARFARIN 5 MG TABLET PO SCH (17:29)
[2017-05-13] MEDS: CLINDAMYCIN INJ 300 MG in PREMIX 1 EACH IV SCH ×5 (00:12→23:51)
[2017-05-13] MEDS: INSULIN REGULAR 100 UNIT/ML SUBCUT SCH ×5 (00:12→23:52)
[2017-05-13 02:43] LABS: Basophils % 0.1 % (0.0-0.8); Eosinophils % 0.1 % (0.00-10.9); Hematocrit 38.9 VOL% (42.0-52.0); Hemoglobin 13.9 GM/DL (14.0-18.0); Immature Granulocytes % 1.9 %; Immature Granulocytes Absolute 0.29 #; Lymphocytes # 0.8 10*3/uL (1.4-4.0); Lymphocytes % 4.8 % (21.2-54.2); Mean Corpuscular HGB Conc 35.7 GM/DL (32-36); Mean Corpuscular Hemoglobin 27 PG (27-34); Mean Corpuscular Volume 74.8 FL (87-102); Mean Platelet Volume 11.6 FL (9.6-12.0); Monocytes # 0.8 10*3/uL (0.11-0.8); Neutrophils # 13.8 10*3/uL (1.4-7.4); Neutrophils % 88.1 % (38.7-73.9); Platelet Count 179 T/CUMM (130-400); Red Cell Distribution Width 14.6 % (9.3-17.3); White Blood Count 15.7 T/CUMM (4-12)
[2017-05-13 02:54] LABS: INR 1.7; PT Patient Result 18.8 SECS
[2017-05-13 03:07] LABS: Calcium 7.8 MG/DL (8.5-10.1); Osmolality,Calculated 277.2 MOS/KG (273-304); Potassium 5.4 MMOL/L (3.5-5.1)
[2017-05-13 03:25] LABS: Band Neutrophils 3 % (0-10); Lymphocytes 8 % (20-55); Metamyelocytes 1 %; Myelocytes 1 %; Platelet Estimate Normal; Segmented Neutrophils 83 % (50-85); Total Cells Counted 100
[2017-05-13] MEDS: ALBUTEROL/IPRATROPIUM 3 ML NEB RESP TX SCH ×7 (03:54→23:47)
--- NOTE | 2017-05-13 06:03 | Pulmonology Progress Note ---
Pulmonary - PN: Subj Interval history: Mr. Juarez is a 72-year-old -[place] male who we saw in initial pulmonary consultation on 05/05/2017. At that time, our impressions were: 1. Altered mental status which is probably secondary to multiple bilateral cerebral emboli. Source is undetermined but would most likely be from the heart or ascending aorta. 2. Possible right lower lung pneumonia. Bacterial versus radiation injury. 3. COPD. Asthma. 4. 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 5. Past history tobacco abuse. Stop smoking 2002 6. History of asbestos exposure 7. Hyperlipidemia 8. High blood pressure 9. Degenerative joint disease 10. Chronic allergic sinusitis 05/06/2017. The patient was seen today along with his brother. Patient is definitely more awake and alert this morning. He is oriented at least to person and place. Carotid ultrasound showed less than 50% stenosis in both ICAs with heterogenous plaque formation. There was antegrade flow in both vertebral arteries. Doppler venograms showed no evidence of deep venous thrombophlebitis within either lower extremity. Echocardiogram was ordered yesterday, but has not yet been done. Chest x-ray today shows a probable right lower lung infiltrate. He is presently being treated with Cleocin and Levaquin. We have asked for sputum, but thus far the patient has not been able to produce a sputum for testing. He has remained afebrile. His white count is normal. Medications have been reviewed. We made no changes today. Labs have been reviewed. No new labs were drawn today. Blood cultures are negative at day 1. 05/07/2017. Patient's pulmonary status is stable today. His mentation is about the same as it was yesterday. Review of microbiology reveals no positive cultures. INR is 1.2. Electrolytes are normal. Creatinine is 0.90 with a BUN of 16. Calcium is 9.1 and magnesium is 2.5. Labs been reviewed. Medicines have been reviewed. Echocardiogram. Ejection fraction 55%. Grade 1/4 diastolic dysfunction. Trace of mitral valve regurgitation with pulmonary artery pressures in the 40-45 % range. Mild to moderate tricuspid regurgitation with slight enlargement of the right atrium with normal size right ventricle. There is no mention of abnormal valves which might be a source of embolic disease.. Based on the distribution of the patient's central nervous system emboli he would think that this would come from either left heart origin of the ascending aorta. Maybe we should consider additional evaluation. 05/08/2017. This patient's mental status was somewhat altered earlier today and a CT scan of the head was done. This showed no acute changes. See report for additional details. Patient also had a CT of the abdomen and pelvis and this showed all lytic lesions in the bone which were present 2013. No other abnormality. Patient had a KUB of the abdomen on 05/07/2017 and it appeared that he had a good bit of fecal retention. Electrolytes normal. Creatinine is 0.9 with a BUN of 12 white count is 12,900 with 79.569.3 lymphs and 8.6 monocytes H& H is 15.0 41.2. Platelets 189,000. Liver function tests are normal. Her previous ammonia level was normal at 16 05/09/2017. This patient was admitted with altered mental status. He had multiple small emboli in the right and left brain. This definitely appeared to be embolic. As expected his carotids were negative. His echocardiogram did not show a definite source of emboli. Emboli most likely would only come from his heart or ascending aorta. We could consider additional evaluation of the aorta and possibly transesophageal echocardiogram. Regardless the patient is going to need to be anticoagulated. He is in a sinus rhythm and is been in a sinus rhythm throughout his hospitalization. He had a follow-up CT of the brain yesterday and this showed nothing new. He remains confused but not agitated. Patient has had adenocarcinoma the superior segment of the right lower lung. This is been treated with radiation. His admit chest x-ray showed right lower lung infiltrate versus a radiation injury. On today's chest x-ray the evolution appears to be secondary to a pneumonia which is not quite resolved. There are no positive cultures. His electrolytes are normal. Glucoses are normal. CBC is normal. INR is prolonged to 3.5. 05/11/2017. Patient was seen with his brother. Patient's a little more alert. He was able to answer a few more questions than before. He has an NG tube down. Swallowing is a new problem for him. Bone scan is noted. Doppler venogram showed no evidence of deep venous thrombophlebitis. Electrolytes are normal. Creatinine is 1.2. BUN is 32. White blood cell count is 14,700 with 86.8 segs. H&H 15.4/43.0. Patient is afebrile times many days. There are no positive cultures. INR is dropped to 2.6. Today I will restart Coumadin 5 mg daily. Previously the patient was on 10 mg daily. We do not know the source of bilateral cerebral nervous system emboli. do we need transesophageal echocardiogram. 05/13/2017. His 72-year-old black male who has adenocarcinoma the lung. He presented with an altered mental status and it appears that he has bilateral central nervous system emboli. See MRI of the brain. His mental status is improved some. He has an infection of the right forearm which is being treated. Patient has underlying COPD with bronchospastic disease which is under good control. Other problems include high blood pressure, hyperlipidemia and degenerative joint disease. Patient is slowly improving. Coumadin was restarted 1 or 2 days ago. Today's INR is 1.7 and I suspect it will lengthen slightly. This is being given for multiple emboli to the central nervous system. Source of emboli is unknown. Patient has a regular sinus rhythm. He is on 5 mg of Coumadin daily Exam (Progress Note) - Constitutional Vitals: Period Temp Pulse Resp BP Sys/Huang Pulse Ox Last 24 Hr 96.7 F-98.6 F 95-102 16-20 131-156/71-90 92-99 Exam: Face symmetrical. No swelling of the lips or tongue. Neck. Symmetrical. No meningismus. Lymphatics. No submandibular cervical or supraclavicular adenopathy Chest is wheeze free but there is slight loose large airway congestion Heart no gallop Abdomen is nontender and nondistended; bowel sounds are positive 4 but somewhat hypoactive Lower extremities right calf is slightly larger than the left calf; Doppler venograms were negative Psychiatric... See above. Calm but still confused. Neurologic unchanged. Cranial nerves are intact. Long track motor functions intact. Plan: 05/06/2017. 1. Follow-up echo report when available. 2. Continue present pulmonary treatment. 3. Agree with Lovenox. 4. See orders. 05/07/2017. 1. See today's note above. 2. Would be very helpful to know the source of the patient's bilateral central nervous system embolic disease 05/08/2017. 1. See my note above. 2. CT of the head showed no acute changes 3. CT of abdomen and pelvis showed no new findings. 05/09/2017. 1. See today's note above. 2. INR 3.4 on 10 mg of Coumadin daily will hold today. This is probably not a safe level for the patient 3. Continue antibiotics. Still small residual right lower lungInfiltrate 05/11/2017. 1. See my note for today above. 2. Restart Coumadin 5 mg daily 3. Source of cerebral emboli is unknown. Should be either the heart the proximal aorta. Should we do additional 10 05/13/2017 1. See my note above. 2. Pulmonary status is stable. 3. Altered mental status is improving 4. Daily INR. Coumadin 5 mg daily. Exam (Progress Note) - Constitutional Vitals: Period Temp Pulse Resp BP Sys/Huang Pulse Ox Last 24 Hr 97.0 F-98.2 F 97-116 16-20 132-161/70-91 90-99 Results - Labs CBC & BMP: 05/13/17 02:00 05/13/17 02:00
[2017-05-13] MEDS: EZETIMIBE 10 MG TABLET PO SCH (09:04)
[2017-05-13] MEDS: MONTELUKAST 10 MG TABLET PO SCH (09:04)
[2017-05-13] MEDS: PANTOPRAZOLE 40 MG VIAL IV SCH (09:04)
[2017-05-13] MEDS: ENOXAPARIN 80 MG/0.8 ML SYRINGE SUBCUT SCH (09:04)
[2017-05-13] MEDS: methylPREDNISolone SOD SUC 40 MG/1 ML VIAL IV SCH ×2 (09:05→20:51)
[2017-05-13] MEDS: LEVOFLOXACIN INJ 500 MG in PREMIX 1 EACH IV SCH (16:24)
--- NOTE | 2017-05-13 16:39 | Hospitalist Progress Note ---
Assessment and Plan (1) CVA (cerebral vascular accident) Status: Chronic Assessment and plan: Continue with Coumadin 7.5 mg daily. INR in a.m. Decrease Lovenox to 60 mg subcu. Due to nosebleeds. Awaiting for INR to be more therapeutic. Current Visit: Yes (2) Altered mental status Status: Resolved Current Visit: Yes (3) COPD (chronic obstructive pulmonary disease) Status: Chronic Current Visit: Yes (4) Bone metastases Status: Acute Assessment and plan: Further workup directed by oncology. Current Visit: Yes (5) Lung cancer Status: Chronic Current Visit: Yes Hospitalist: Subjective Interval history: The patient is more awake and alert today. He has been visiting with his family. He did have a swallowing evaluation and it was recommended for pured diet. He has done's well with applesauce but does gets choked on liquids. Family members at the bedside and had questions regarding direction of care. Specifically their questions regarding nutrition as well as nursing care. I explained to family that we need to see Mr. Clark tolerating more of his diet more. If he is not able to tolerate his diet, then would need to start looking at options for a PEG tube. Moreover referral has been made for rehab versus swing bed or nursing facility and those referrals are still pending. His last INR was noted to be 1.7 he is started to have slight soft nosebleeds. His Coumadin has been adjusted and his Lovenox is been decreased. His MRI showed evidence of stroke no lytic changes appreciated on MRI done yesterday. Dr. Quick is to follow-up on next week. He will get us CBC in a.m. as well as a PT/INR in a.m. Exam - Constitutional Vitals: Period Temp Pulse Resp BP Sys/Huang Pulse Ox Last 24 Hr 97.6 F-98.2 F 100-123 18-183 143-176/73-93 90-99 General appearance: over weight - Head Head exam: Present: normal inspection - Eye Eye exam: Present: EOMI - Neck Neck exam: Present: normal inspection - Respiratory Respiratory exam: Present: clear to auscultation bilaterally - Cardiovascular Cardiovascular exam: Present: regular rate and rhythm - GI/Abdominal GI/Abdominal exam: Present: normal bowel sounds, other (NG tube in place) - Neurological Exam Neurological exam: Present: alert (Much more awake today understands my conversation I am having with him as well as with his family.) - Psychiatric Psychiatric exam: Present: normal affect Results - Labs CBC & BMP: 05/13/17 02:00 05/13/17 02:00
[2017-05-13] MEDS: ENOXAPARIN 60 MG/0.6 ML SYRINGE SUBCUT SCH (16:51)
[2017-05-13] MEDS ORDERED: TUBERCULIN SKIN TEST 0.1 ML SYRINGE INTRADERM ONE (17:28)
[2017-05-13] MEDS: WARFARIN 7.5 MG TABLET PO SCH (17:55)
[2017-05-14] MEDS: ALBUTEROL/IPRATROPIUM 3 ML NEB RESP TX SCH ×5 (03:06→19:24)
[2017-05-14 06:12] LABS: Basophils # 0.1 10*3/uL (0.0-0.2); Basophils % 0.2 % (0.0-0.8); Hematocrit 40.6 VOL% (42.0-52.0); Hemoglobin 14.8 GM/DL (14.0-18.0); Immature Granulocytes % 3.5 %; Lymphocytes # 0.9 10*3/uL (1.4-4.0); Lymphocytes % 4.6 % (21.2-54.2); Mean Corpuscular HGB Conc 36.5 GM/DL (32-36); Mean Corpuscular Hemoglobin 27 PG (27-34); Mean Corpuscular Volume 74.6 FL (87-102); Mean Platelet Volume 10.8 FL (9.6-12.0); Monocytes # 1.5 10*3/uL (0.11-0.8); Monocytes % 7.6 % (1.7-12.7); Neutrophils # 16.9 10*3/uL (1.4-7.4); Neutrophils % 84.1 % (38.7-73.9); Platelet Count 173 T/CUMM (130-400); Red Blood Count 5.44 MC/CUMM (3.8-5.5); Red Cell Distribution Width 14.7 % (9.3-17.3); White Blood Count 20.1 T/CUMM (4-12)
[2017-05-14] MEDS: CLINDAMYCIN INJ 300 MG in PREMIX 1 EACH IV SCH ×2 (06:18→11:38)
[2017-05-14] MEDS: ENOXAPARIN 60 MG/0.6 ML SYRINGE SUBCUT SCH ×2 (06:19→17:02)
[2017-05-14] MEDS: INSULIN REGULAR 100 UNIT/ML SUBCUT SCH ×3 (06:19→18:20)
[2017-05-14 06:28] LABS: INR 1.7; PT Patient Result 18.1 SECS
[2017-05-14 08:10] LABS: Eosinophils 1 % (0-10); Hypochromasia 2+; Lymphocytes 5 % (20-55); Microcytosis Slight; Platelet Estimate Adequate; Segmented Neutrophils 82 % (50-85); Total Cells Counted 100
[2017-05-14] MEDS: methylPREDNISolone SOD SUC 40 MG/1 ML VIAL IV SCH ×2 (09:27→21:22)
[2017-05-14] MEDS: EZETIMIBE 10 MG TABLET PO SCH (09:27)
[2017-05-14] MEDS: MONTELUKAST 10 MG TABLET PO SCH (09:27)
[2017-05-14] MEDS: PANTOPRAZOLE 40 MG VIAL IV SCH (09:28)
--- NOTE | 2017-05-14 11:05 | General Surgery Progress Note ---
Assessment and Plan - Time spent with patient Time spent with patient: Less than 30 minutes (1) Cellulitis of right upper extremity Status: Acute Assessment and plan: 05/12/2017. Right upper extremity cellulitis. No evidence of DVT. This may be somewhat related to dependency versus IV infiltration. We see no obvious wounds or abrasions, and he gives no known source of trauma. We will continue antibiotics, local care and light compression, elevation, and close observation. This should resolve but will be available in case there are changes 05/26/2017. Right upper extremity cellulitis is resolving. He does still have some residual blistering, but no advancing cellulitis and nothing to suggest any type of underlying deep space abscess. I doubt this is the source of the cytosis, and did not seem to be any surgical intervention warranted at this point. We will continue to watch closely, though it looks like this area should just respond to skin care and close observation. We do advise continue to elevate his extremities as he may have some degree of dependent edema post CVA. Current Visit: Yes Subjective Patient reports: Present: no new complaints Exam - Constitutional Vitals: Period Temp Pulse Resp BP Sys/Huang Pulse Ox Last 24 Hr 97.8 F-99.7 F 100-125 16-183 141-176/67-93 90-99 General appearance: other (Patient is awake and alert although he is not totally oriented today. His family is present and necrotic. Is in no acute distress) - Head Head exam: Present: normocephalic - ENT Mouth exam: Present: dry mucosa - Cardiovascular Cardiovascular exam: Present: RRR - GI/Abdominal GI/Abdominal exam: Present: hypoactive bowel sounds, soft - Extremities Exam Extremities exam: Present: other (Right upper extremity soft and there is no tension or induration. He does have residual blistering of the skin portion of the forearm. There is no advancing erythema. It is not tender to touch. I see no ischemic skin. He has good neurovascular function. 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
--- NOTE | 2017-05-14 12:41 | Hospitalist Progress Note ---
Assessment and Plan (1) Altered mental status Status: Resolved Assessment and plan: Mr. Juarez has history of lung cancer. The patient has sustained stroke consistent with embolic phenomenon. The patient is now on Coumadin with INR 1.7. Will recheck INR tomorrow and discontinue Lovenox when INR is greater than 2. I am going to discontinue the clindamycin since she has been on that for a week and will continue with Lovenox. Current Visit: Yes Hospitalist: Subjective Interval history: The patient is resting quietly in bed today. He is able to speak in short sentences and does not complain of pain. The patient has no agitation. The patient is tolerating small amounts of oral diet. The patient had diarrhea on tube feedings which were held last night and loose stools have decreased today. Exam - Constitutional Vitals: Period Temp Pulse Resp BP Sys/Huang Pulse Ox Last 24 Hr 98.2 F-99.7 F 110-125 16-20 141-173/67-77 90-99 Exam: Constitutional System: No distress. No tremulousness. Head: Normocephalic, atraumatic. Ears, Nose and Throat System: No evidence of Otitis or Mastoiditis. No epistaxis or discharge Eyes System: Pupils equal, round, and reactive. Extraocular muscles intact. Neck: Supple, without adenopathy, No jugular venous distention. No thyromegaly , neck mass, or prior surgery apparent. Respiratory System: Chest clear to auscultation. Cardiovascular System: Heart with regular rate and rhythm. No murmur. GI System: Abdomen soft, nontender. Normo active bowel sounds present. Musculoskeletal System: limbs with no pedal edema. Full distal pulses. Neurological System: No discernable sensory deficit. No aphasia Results - Labs CBC & BMP: 05/14/17 05:54 05/13/17 02:00 Lab Results: I have reviewed the past 24 hour labs
--- NOTE | 2017-05-14 15:48 | Pulmonology Progress Note ---
Pulmonary - PN: Subj Interval history: Patient seen and examined today, doing well, states his breathing is better. No complaints at this time Exam (Progress Note) - Constitutional Vitals: Period Temp Pulse Resp BP Sys/Huang Pulse Ox Last 24 Hr 98.2 F-99.7 F 110-125 16-20 141-173/67-77 90-99 General appearance: normal weight, no acute distress - Head Head exam: Present: normocephalic - Respiratory Respiratory exam: Present: clear to auscultation bilaterally - Cardiovascular Cardiovascular exam: Present: regular rate and rhythm Results - Labs CBC & BMP: 05/14/17 05:54 05/13/17 02:00 Lab Results: I have reviewed the past 24 hour labs Assessment and Plan (1) COPD (chronic obstructive pulmonary disease) Status: Chronic Assessment and plan: Patient doing well, clinically improving, continue with current medications and treatments Current Visit: Yes
[2017-05-14] MEDS: WARFARIN 7.5 MG TABLET PO SCH (17:02)
[2017-05-14] MEDS: LEVOFLOXACIN INJ 500 MG in PREMIX 1 EACH IV SCH (17:03)
[2017-05-15] MEDS: ALBUTEROL/IPRATROPIUM 3 ML NEB RESP TX SCH ×7 (00:08→23:29)
[2017-05-15] MEDS: INSULIN REGULAR 100 UNIT/ML SUBCUT SCH ×4 (00:17→17:38)
[2017-05-15] MEDS: ENOXAPARIN 60 MG/0.6 ML SYRINGE SUBCUT SCH ×2 (05:01→17:09)
[2017-05-15 05:58] LABS: Basophils % 0.2 % (0.0-0.8); Eosinophils % 0.1 % (0.00-10.9); Hematocrit 41.1 VOL% (42.0-52.0); Hemoglobin 14.9 GM/DL (14.0-18.0); Immature Granulocytes Absolute 0.82 #; Lymphocytes # 1.3 10*3/uL (1.4-4.0); Lymphocytes % 6.1 % (21.2-54.2); Mean Corpuscular HGB Conc 36.3 GM/DL (32-36); Mean Corpuscular Hemoglobin 27 PG (27-34); Mean Corpuscular Volume 74.5 FL (87-102); Mean Platelet Volume 10.4 FL (9.6-12.0); Monocytes # 1.8 10*3/uL (0.11-0.8); Monocytes % 8.9 % (1.7-12.7); Neutrophils # 16.6 10*3/uL (1.4-7.4); Neutrophils % 80.7 % (38.7-73.9); Platelet Count 150 T/CUMM (130-400); Red Blood Count 5.52 MC/CUMM (3.8-5.5); Red Cell Distribution Width 14.6 % (9.3-17.3); White Blood Count 20.6 T/CUMM (4-12)
[2017-05-15 06:30] LABS: INR 1.8; PT Patient Result 19.5 SECS
[2017-05-15 07:56] LABS: Hypochromasia Slight; Lymphocytes 6 % (20-55); Platelet Estimate Adequate; Polychromasia Slight; Segmented Neutrophils 84 % (50-85); Total Cells Counted 100
[2017-05-15] MEDS: EZETIMIBE 10 MG TABLET PO SCH (09:40)
[2017-05-15] MEDS: MONTELUKAST 10 MG TABLET PO SCH (09:40)
[2017-05-15] MEDS: methylPREDNISolone SOD SUC 40 MG/1 ML VIAL IV SCH ×2 (09:40→21:08)
[2017-05-15] MEDS: PANTOPRAZOLE 40 MG VIAL IV SCH (09:41)
--- NOTE | 2017-05-15 10:23 | Pulmonology Progress Note ---
Pulmonary - PN: Subj Interval history: Patient doing well from pulmonary standpoint. Denies any cough or shortness of breath. Is complaining that his left arm is more swollen and tender though Exam (Progress Note) - Constitutional Vitals: Period Temp Pulse Resp BP Sys/Huang Pulse Ox Last 24 Hr 98.1 F-99.8 F 108-124 16-20 111-159/64-89 91-99 General appearance: no acute distress - Head Head exam: Present: normal inspection - Respiratory Respiratory exam: Present: clear to auscultation bilaterally - Cardiovascular Cardiovascular exam: Present: tachycardia - Extremities Exam Extremities exam: Present: other (increased swelling of left arm compared to right) Results - Labs CBC & BMP: 05/15/17 05:41 05/13/17 02:00 Lab Results: I have reviewed the past 24 hour labs Assessment and Plan (1) COPD (chronic obstructive pulmonary disease) Status: Chronic Assessment and plan: Patient doing well, clinically improving, continue with current medications and treatments Current Visit: Yes (2) Left arm swelling Status: Acute Assessment and plan: Patient with unliateral swelling of the uninfected arm now. Also with low grade temp and tachycardia. Will get UE doppler to rule out DVT Current Visit: Yes
--- NOTE | 2017-05-15 14:05 | Ultrasound Report ---
Left upper extremity venous Doppler. Indication: Left arm swelling. Grayscale, color-flow, and spectral analysis performed and interpreted. A verbal report was given by the scanning technologist to the ordering RN. The left jugular vein and subclavian veins are patent. The left axillary vein is patent. The cephalic vein is patent. The brachial vein is occluded. The mid basilic vein demonstrates poor flow and noncompressibility, also consistent with nonocclusive thrombus. Impression: Occlusive thrombus is seen in the left brachial vein. Nonocclusive thrombus in a portion of the left basilic vein. PROCEDURE INTERPRETED AT [facility] DEPARTMENT OF RADIOLOGY Final Report Signed by: Dr. Juany Christiansen
--- NOTE | 2017-05-15 15:15 | Hospitalist Progress Note ---
Assessment and Plan (1) Altered mental status Status: Resolved Assessment and plan: Mr. Juarez has history of lung cancer. The patient has sustained stroke consistent with embolic phenomenon. The patient's ultrasound of left upper extremity reveals evidence of thrombo-phlebitis. We will continue coagulation with Lovenox and INR continues to increase as expected. Current Visit: Yes Hospitalist: Subjective Interval history: Left arm swelling. No dyspnea. Exam - Constitutional Vitals: Period Temp Pulse Resp BP Sys/Huang Pulse Ox Last 24 Hr 98.1 F-99.8 F 107-125 16-20 111-159/64-89 91-98 Exam: Constitutional System: No distress. No tremulousness. Head: Normocephalic, atraumatic. Ears, Nose and Throat System: No evidence of Otitis or Mastoiditis. No epistaxis or discharge Eyes System: Pupils equal, round, and reactive. Extraocular muscles intact. Neck: Supple, without adenopathy, No jugular venous distention. No thyromegaly , neck mass, or prior surgery apparent. Respiratory System: Chest clear to auscultation. Cardiovascular System: Heart with regular rate and rhythm. No murmur. GI System: Abdomen soft, nontender. Normo active bowel sounds present. Musculoskeletal System: limbs with no pedal edema. Tenderness redness and swelling of left forearm Neurological System: No discernable sensory deficit. No aphasia Results - Labs CBC & BMP: 05/15/17 05:41 05/13/17 02:00 Lab Results: I have reviewed the past 24 hour labs
[2017-05-15] MEDS: LEVOFLOXACIN INJ 500 MG in PREMIX 1 EACH IV SCH (17:08)
[2017-05-15] MEDS: WARFARIN 7.5 MG TABLET PO SCH (17:09)
[2017-05-16] MEDS: INSULIN REGULAR 100 UNIT/ML SUBCUT SCH ×4 (00:35→18:32)
[2017-05-16] MEDS: ALBUTEROL/IPRATROPIUM 3 ML NEB RESP TX SCH ×6 (02:06→19:29)
[2017-05-16 05:12] LABS: Basophils # 0.1 10*3/uL (0.0-0.2); Basophils % 0.2 % (0.0-0.8); Eosinophils % 0.1 % (0.00-10.9); Hematocrit 43.5 VOL% (42.0-52.0); Hemoglobin 15.3 GM/DL (14.0-18.0); Immature Granulocytes % 4.4 %; Immature Granulocytes Absolute 0.95 #; Lymphocytes # 1.2 10*3/uL (1.4-4.0); Lymphocytes % 5.8 % (21.2-54.2); Mean Corpuscular HGB Conc 35.2 GM/DL (32-36); Mean Corpuscular Hemoglobin 27 PG (27-34); Mean Corpuscular Volume 75.9 FL (87-102); Mean Platelet Volume 10.4 FL (9.6-12.0); Monocytes # 1.5 10*3/uL (0.11-0.8); Monocytes % 7.2 % (1.7-12.7); Neutrophils # 17.6 10*3/uL (1.4-7.4); Neutrophils % 82.3 % (38.7-73.9); Platelet Count 134 T/CUMM (130-400); Red Blood Count 5.73 MC/CUMM (3.8-5.5); White Blood Count 21.4 T/CUMM (4-12)
[2017-05-16 05:30] LABS: INR 1.4; PT Patient Result 15.4 SECS
[2017-05-16] MEDS: ENOXAPARIN 60 MG/0.6 ML SYRINGE SUBCUT SCH ×2 (05:38→20:26)
[2017-05-16 05:47] LABS: Calcium 9.2 MG/DL (8.5-10.1); Magnesium 2.9 MG/DL (1.8-2.4); Osmolality,Calculated 280.2 MOS/KG (273-304); Phosphorous 5.8 MG/DL (2.5-4.9); Potassium 4.9 MMOL/L (3.5-5.1); Prealbumin 37.8 MG/DL (20-40)
[2017-05-16 06:25] LABS: Hypochromasia 1+; Lymphocytes 5 % (20-55); Segmented Neutrophils 87 % (50-85); Total Cells Counted 100
[2017-05-16 06:26] LABS: Microcytosis 1+; Platelet Estimate Adequate
--- NOTE | 2017-05-16 07:29 | XRay Report ---
Exam: XR chest 1V portable Date: 05/16/2017 4:54 AM Indication: Nasogastric tube placement Comparison: 05/09/2017. Technical: AP chest and upper abdomen Findings: Nasogastric traverses esophagus and distal tip appears to be over the lateral aspect of the greater curvature the stomach. Cardiomegaly is present. Lateral marginal osteophytes and external cardiac leads are present. Granuloma calcifications are present. The liver and spleen and renal shadows are not well seen. No obvious pneumothorax or pneumoperitoneum. Impression: 1. Nasogastric tube traverses esophagus into the stomach. 2. Degenerative spondylosis change 3. Granuloma changes. PROCEDURE INTERPRETED AT [facility] [place] DEPARTMENT OF RADIOLOGY Final Report Signed by: Dr. Danny Carrion
--- NOTE | 2017-05-16 07:59 | Oncology Progress Note ---
Assessment and Plan (1) Bone metastases Status: Acute Current Visit: Yes (2) Altered mental status Status: Resolved Current Visit: Yes (3) CVA (cerebral vascular accident) Status: Chronic Current Visit: Yes (4) COPD (chronic obstructive pulmonary disease) Status: Chronic Current Visit: Yes (5) Lung cancer Status: Chronic Current Visit: Yes Oncology Subjective PN Interval history: Mr. Juarez appears to be doing well. His MRI with contrast done last week did not show any obvious areas of metastases. I had a discussion with him this morning about watching these bony areas for now while he recovers from his acute stroke. He will likely need a few weeks to get over his acute situation and then we can readdress the bony lesions if he is doing well. I also explained to him that if we truly fine metastatic bony involvement from his previous lung cancer, will likely be doing palliative supportive care only as I do not see him a good candidate for chemotherapy at any point. I am unsure how much of this he understands but I will continue to readdress this with him at each visit. He had a friend present in the room today who also heard our conversation. From my standpoint, he can be discharged to a rehab facility at any point. I can see him back in clinic once he is out of rehab even if that is a month or 2 from now. Exam - Constitutional Vitals: Period Temp Pulse Resp BP Sys/Huang Pulse Ox Last 24 Hr 97.6 F-99.8 F 107-125 17-20 117-155/56-84 91-98 General appearance: normal weight, no acute distress - Eye Eye Exam: Present: EOMI Pupils: Present: PERRL - ENT ENT exam: Present: normal oropharynx - Neck Neck exam: Absent: lymphadenopathy, thyromegaly - Respiratory Respiratory exam: Present: CTAB. Absent: wheezes - Cardiovascular Cardiovascular exam: Present: RRR. Absent: JVD Results - Labs CBC & BMP: 05/16/17 04:14 05/16/17 04:14 Lab Results: I have reviewed the past 24 hour labs
[2017-05-16] MEDS: PANTOPRAZOLE 40 MG VIAL IV SCH (09:57)
[2017-05-16] MEDS: methylPREDNISolone SOD SUC 40 MG/1 ML VIAL IV SCH ×2 (09:58→20:24)
[2017-05-16] MEDS: MONTELUKAST 10 MG TABLET PO SCH (09:58)
[2017-05-16] MEDS: EZETIMIBE 10 MG TABLET PO SCH (09:59)
--- NOTE | 2017-05-16 10:11 | Pulmonology Progress Note ---
Pulmonary - PN: Subj Interval history: Mr. Juarez is a 72-year-old -[place] male who we saw in initial pulmonary consultation on 05/05/2017. At that time, our impressions were: 1. Altered mental status which is probably secondary to multiple bilateral cerebral emboli. Source is undetermined but would most likely be from the heart or ascending aorta. 2. Possible right lower lung pneumonia. Bacterial versus radiation injury. 3. COPD. Asthma. 4. 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 5. Past history tobacco abuse. Stop smoking 2002 6. History of asbestos exposure 7. Hyperlipidemia 8. High blood pressure 9. Degenerative joint disease 10. Chronic allergic sinusitis 05/06/2017. The patient was seen today along with his brother. Patient is definitely more awake and alert this morning. He is oriented at least to person and place. Carotid ultrasound showed less than 50% stenosis in both ICAs with heterogenous plaque formation. There was antegrade flow in both vertebral arteries. Doppler venograms showed no evidence of deep venous thrombophlebitis within either lower extremity. Echocardiogram was ordered yesterday, but has not yet been done. Chest x-ray today shows a probable right lower lung infiltrate. He is presently being treated with Cleocin and Levaquin. We have asked for sputum, but thus far the patient has not been able to produce a sputum for testing. He has remained afebrile. His white count is normal. Medications have been reviewed. We made no changes today. Labs have been reviewed. No new labs were drawn today. Blood cultures are negative at day 1. 05/07/2017. Patient's pulmonary status is stable today. His mentation is about the same as it was yesterday. Review of microbiology reveals no positive cultures. INR is 1.2. Electrolytes are normal. Creatinine is 0.90 with a BUN of 16. Calcium is 9.1 and magnesium is 2.5. Labs been reviewed. Medicines have been reviewed. Echocardiogram. Ejection fraction 55%. Grade 1/4 diastolic dysfunction. Trace of mitral valve regurgitation with pulmonary artery pressures in the 40-45 % range. Mild to moderate tricuspid regurgitation with slight enlargement of the right atrium with normal size right ventricle. There is no mention of abnormal valves which might be a source of embolic disease.. Based on the distribution of the patient's central nervous system emboli he would think that this would come from either left heart origin of the ascending aorta. Maybe we should consider additional evaluation. 05/08/2017. This patient's mental status was somewhat altered earlier today and a CT scan of the head was done. This showed no acute changes. See report for additional details. Patient also had a CT of the abdomen and pelvis and this showed all lytic lesions in the bone which were present 2013. No other abnormality. Patient had a KUB of the abdomen on 05/07/2017 and it appeared that he had a good bit of fecal retention. Electrolytes normal. Creatinine is 0.9 with a BUN of 12 white count is 12,900 with 79.569.3 lymphs and 8.6 monocytes H& H is 15.0 41.2. Platelets 189,000. Liver function tests are normal. Her previous ammonia level was normal at 16 05/09/2017. This patient was admitted with altered mental status. He had multiple small emboli in the right and left brain. This definitely appeared to be embolic. As expected his carotids were negative. His echocardiogram did not show a definite source of emboli. Emboli most likely would only come from his heart or ascending aorta. We could consider additional evaluation of the aorta and possibly transesophageal echocardiogram. Regardless the patient is going to need to be anticoagulated. He is in a sinus rhythm and is been in a sinus rhythm throughout his hospitalization. He had a follow-up CT of the brain yesterday and this showed nothing new. He remains confused but not agitated. Patient has had adenocarcinoma the superior segment of the right lower lung. This is been treated with radiation. His admit chest x-ray showed right lower lung infiltrate versus a radiation injury. On today's chest x-ray the evolution appears to be secondary to a pneumonia which is not quite resolved. There are no positive cultures. His electrolytes are normal. Glucoses are normal. CBC is normal. INR is prolonged to 3.5. 05/11/2017. Patient was seen with his brother. Patient's a little more alert. He was able to answer a few more questions than before. He has an NG tube down. Swallowing is a new problem for him. Bone scan is noted. Doppler venogram showed no evidence of deep venous thrombophlebitis. Electrolytes are normal. Creatinine is 1.2. BUN is 32. White blood cell count is 14,700 with 86.8 segs. H&H 15.4/43.0. Patient is afebrile times many days. There are no positive cultures. INR is dropped to 2.6. Today I will restart Coumadin 5 mg daily. Previously the patient was on 10 mg daily. We do not know the source of bilateral cerebral nervous system emboli. do we need transesophageal echocardiogram. 05/13/2017. His 72-year-old black male who has adenocarcinoma the lung. He presented with an altered mental status and it appears that he has bilateral central nervous system emboli. See MRI of the brain. His mental status is improved some. He has an infection of the right forearm which is being treated. Patient has underlying COPD with bronchospastic disease which is under good control. Other problems include high blood pressure, hyperlipidemia and degenerative joint disease. Patient is slowly improving. Coumadin was restarted 1 or 2 days ago. Today's INR is 1.7 and I suspect it will lengthen slightly. This is being given for multiple emboli to the central nervous system. Source of emboli is unknown. Patient has a regular sinus rhythm. He is on 5 mg of Coumadin daily. 05/16/2017. Patient was seen along with his daughter who is feeding. She says he is swallowing but he is very slow to eat any cough occasionally when he swallows. Patient is more alert. His daughter says he recognizes family and other people when they come to see him. Patient still has his NG tube in for feeding. His nurse says is been no problem with residual residual. NG tube did have to be replaced last night. I have asked for calorie counting but I suspect will need to continue this for a while. Today's chest x-ray shows cardiomegaly. There is slight increased markings inferior to the right hilum. I do not see any infiltrates. There is no evidence of congestive heart failure. There are no new positive cultures. INR is 1.4. Electrolytes are normal. Creatinine has increased to 1.40 with a BUN of 32. Glucoses are fair. Phosphorus and magnesium are high. White count was 21,482 segs. H&H 15.3/ 43.5 and platelets are 134,000. Patient's on Levaquin. I hope to discontinue this soon. Medicines and labs have been reviewed Exam (Progress Note) - Constitutional Vitals: Period Temp Pulse Resp BP Sys/Huang Pulse Ox Last 24 Hr 96.7 F-98.6 F 95-102 16-20 131-156/71-90 92-99 Exam: Face symmetrical. No swelling of the lips or tongue. Neck. Symmetrical. No meningismus. Lymphatics. No submandibular cervical or supraclavicular adenopathy Chest is wheeze free but there is slight loose large airway congestion Heart no gallop Abdomen is nontender and nondistended; bowel sounds are positive 4 but somewhat hypoactive Lower extremities right calf is slightly larger than the left calf; Doppler venograms were negative Psychiatric... See above. Calm but still confused. Neurologic unchanged. Cranial nerves are intact. Long track motor functions intact. Plan: 05/06/2017. 1. Follow-up echo report when available. 2. Continue present pulmonary treatment. 3. Agree with Lovenox. 4. See orders. 05/07/2017. 1. See today's note above. 2. Would be very helpful to know the source of the patient's bilateral central nervous system embolic disease 05/08/2017. 1. See my note above. 2. CT of the head showed no acute changes 3. CT of abdomen and pelvis showed no new findings. 05/09/2017. 1. See today's note above. 2. INR 3.4 on 10 mg of Coumadin daily will hold today. This is probably not a safe level for the patient 3. Continue antibiotics. Still small residual right lower lungInfiltrate 05/11/2017. 1. See my note for today above. 2. Restart Coumadin 5 mg daily 3. Source of cerebral emboli is unknown. Should be either the heart the proximal aorta. Should we do additional 10 05/13/2017 1. See my note above. 2. Pulmonary status is stable. 3. Altered mental status is improving 4. Daily INR. Coumadin 5 mg daily. 05/16/2017. 1. See my note above. 2. Watch creatinine 3. Probably needs an NG tube feedings a little longer. 4. Hope to stop Levaquin 7 5. Mentation is Exam (Progress Note) - Constitutional Vitals: Period Temp Pulse Resp BP Sys/Huang Pulse Ox Last 24 Hr 97.6 F-98.6 F 107-125 16-20 117-155/56-95 91-99 Results - Labs CBC & BMP: 05/16/17 04:14 05/16/17 04:14
--- NOTE | 2017-05-16 11:01 | Case Mgmt Physician Query Form ---
TB Signs and Symptoms Screening ([place]) INSTRUCTIONS: To be completed annually on residents/staff with a significant Tuberculin Skin Test (TST) upon admission/hire or a prior significant TST. To be completed on all staff at hire. Please respond to each listed symptom with an (X) in either the "YES" or "NO" box. Do you currently have any of the following symptoms: YES NO ( ) ( X) A cough If yes, is it: ( ) Productive ( ) Non- productive ( ) (X ) Hemoptysis (spitting up blood) ( ) ( X) Chest pains ( ) ( X) Weight Loss ( ) (X ) Fever ( ) (X ) Night Sweats ( ) (X ) Weakness ( ) ( X) Loss of Appetite ( ) (X ) Difficulty Breathing If you answered YES" to any of the above questions, how long have symptoms been present? Comments: If you have any questions, please contact me. thank you, Tj Blanca RN Case Manager O:[phone] P: [phone] F: [phone] [email or web address]
--- NOTE | 2017-05-16 12:36 | General Surgery Progress Note ---
Assessment and Plan - Time spent with patient Time spent with patient: Less than 30 minutes (1) Cellulitis of right upper extremity Status: Acute Assessment and plan: 05/12/2017. Right upper extremity cellulitis. No evidence of DVT. This may be somewhat related to dependency versus IV infiltration. We see no obvious wounds or abrasions, and he gives no known source of trauma. We will continue antibiotics, local care and light compression, elevation, and close observation. This should resolve but will be available in case there are changes 05/14/2017. Right upper extremity cellulitis is resolving. He does still have some residual blistering, but no advancing cellulitis and nothing to suggest any type of underlying deep space abscess. I doubt this is the source of the cytosis, and did not seem to be any surgical intervention warranted at this point. We will continue to watch closely, though it looks like this area should just respond to skin care and close observation. We do advise continue to elevate his extremities as he may have some degree of dependent edema post CVA. 05/13/17 Cellulitis of right upper extremity, clearing. Skin excoriations are healing well. We'll just keep the areas moist and continue SONG, as this is the best and most reasonable way to keep the areas dressed, but he certainly doesn' t need any true compression. Current Visit: Yes Subjective Patient reports: Present: no new complaints Exam - Constitutional Vitals: Period Temp Pulse Resp BP Sys/Huang Pulse Ox Last 24 Hr 97.6 F-98.6 F 96-125 16-20 117-150/56-95 91-99 General appearance: no acute distress - Extremities Exam Extremities exam: Present: other (Right forearm cellulitis continues to improve , with no new blisters present. There are superficial healing excoriations without redness, tenderness, or induration. The skin is soft and nontender, he has good range of motion, and there is no edema. Dust Mixer strenght is 4/5, radial pulses 2+. ) Results - Labs CBC & BMP: 05/16/17 04:14 05/16/17 04:14
--- NOTE | 2017-05-16 12:41 | Hospitalist Progress Note ---
Assessment and Plan (1) Altered mental status Status: Resolved Assessment and plan: Mr. Juarez has history of lung cancer. The patient has sustained stroke consistent with embolic phenomenon. The patient's ultrasound of left upper extremity reveals evidence of thrombo-phlebitis. We will continue coagulation with Lovenox and INR continues to increase as expected. Once INR is greater than 2 the Lovenox can be discontinued. The NG tube is out and were going to try to re-feed the patient. If unsuccessful the patient may require PEG tube. Current Visit: Yes Hospitalist: Subjective Interval history: The patient was initially admitted to the hospital with confusion and agitation. He was found to have embolic phenomenon with stroke. The patient's alertness and agitation problem has improved. The patient still has weakness and uncoordination. The patient had been previously unable to swallow but this is getting better and we will take out the NG tube today. The patient has history of lung cancer and Dr. Macias states that he has no plan for treating the patient's lytic bone lesions in the spine for now but recommends that we pursue rehab for his stroke. Exam - Constitutional Vitals: Period Temp Pulse Resp BP Sys/Huang Pulse Ox Last 24 Hr 97.6 F-98.6 F 96-125 16-20 117-150/56-95 91-99 Exam: Constitutional System: No distress. No tremulousness. Head: Normocephalic, atraumatic. Ears, Nose and Throat System: No evidence of Otitis or Mastoiditis. No epistaxis or discharge Eyes System: Pupils equal, round, and reactive. Extraocular muscles intact. Neck: Supple, without adenopathy, No jugular venous distention. No thyromegaly , neck mass, or prior surgery apparent. Respiratory System: Chest clear to auscultation. Cardiovascular System: Heart with regular rate and rhythm. No murmur. GI System: Abdomen soft, nontender. Normo active bowel sounds present. Musculoskeletal System: limbs with no pedal edema. Tenderness redness and swelling of left forearm Neurological System: No discernable sensory deficit. No aphasia Results - Labs CBC & BMP: 05/16/17 04:14 05/16/17 04:14 Lab Results: I have reviewed the past 24 hour labs
[2017-05-16] MEDS ORDERED: TUBERCULIN SKIN TEST 0.1 ML SYRINGE INTRADERM ONE (16:53)
[2017-05-16] MEDS: WARFARIN 7.5 MG TABLET PO SCH (18:31)
[2017-05-16] MEDS: LEVOFLOXACIN INJ 500 MG in PREMIX 1 EACH IV SCH (20:20)
[2017-05-17] MEDS: ALBUTEROL/IPRATROPIUM 3 ML NEB RESP TX SCH ×6 (01:31→19:23)
[2017-05-17] MEDS: INSULIN REGULAR 100 UNIT/ML SUBCUT SCH ×4 (02:21→18:23)
[2017-05-17 07:27] LABS: INR 1.5; PT Patient Result 16.2 SECS
--- NOTE | 2017-05-17 10:04 | Pulmonology Progress Note ---
Pulmonary - PN: Subj Interval history: Mr. Juarez is a 72-year-old -[place] male who we saw in initial pulmonary consultation on 05/05/2017. At that time, our impressions were: 1. Altered mental status which is probably secondary to multiple bilateral cerebral emboli. Source is undetermined but would most likely be from the heart or ascending aorta. 2. Possible right lower lung pneumonia. Bacterial versus radiation injury. 3. COPD. Asthma. 4. 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 5. Past history tobacco abuse. Stop smoking 2002 6. History of asbestos exposure 7. Hyperlipidemia 8. High blood pressure 9. Degenerative joint disease 10. Chronic allergic sinusitis 05/06/2017. The patient was seen today along with his brother. Patient is definitely more awake and alert this morning. He is oriented at least to person and place. Carotid ultrasound showed less than 50% stenosis in both ICAs with heterogenous plaque formation. There was antegrade flow in both vertebral arteries. Doppler venograms showed no evidence of deep venous thrombophlebitis within either lower extremity. Echocardiogram was ordered yesterday, but has not yet been done. Chest x-ray today shows a probable right lower lung infiltrate. He is presently being treated with Cleocin and Levaquin. We have asked for sputum, but thus far the patient has not been able to produce a sputum for testing. He has remained afebrile. His white count is normal. Medications have been reviewed. We made no changes today. Labs have been reviewed. No new labs were drawn today. Blood cultures are negative at day 1. 05/07/2017. Patient's pulmonary status is stable today. His mentation is about the same as it was yesterday. Review of microbiology reveals no positive cultures. INR is 1.2. Electrolytes are normal. Creatinine is 0.90 with a BUN of 16. Calcium is 9.1 and magnesium is 2.5. Labs been reviewed. Medicines have been reviewed. Echocardiogram. Ejection fraction 55%. Grade 1/4 diastolic dysfunction. Trace of mitral valve regurgitation with pulmonary artery pressures in the 40-45 % range. Mild to moderate tricuspid regurgitation with slight enlargement of the right atrium with normal size right ventricle. There is no mention of abnormal valves which might be a source of embolic disease.. Based on the distribution of the patient's central nervous system emboli he would think that this would come from either left heart origin of the ascending aorta. Maybe we should consider additional evaluation. 05/08/2017. This patient's mental status was somewhat altered earlier today and a CT scan of the head was done. This showed no acute changes. See report for additional details. Patient also had a CT of the abdomen and pelvis and this showed all lytic lesions in the bone which were present 2013. No other abnormality. Patient had a KUB of the abdomen on 05/07/2017 and it appeared that he had a good bit of fecal retention. Electrolytes normal. Creatinine is 0.9 with a BUN of 12 white count is 12,900 with 79.569.3 lymphs and 8.6 monocytes H& H is 15.0 41.2. Platelets 189,000. Liver function tests are normal. Her previous ammonia level was normal at 16 05/09/2017. This patient was admitted with altered mental status. He had multiple small emboli in the right and left brain. This definitely appeared to be embolic. As expected his carotids were negative. His echocardiogram did not show a definite source of emboli. Emboli most likely would only come from his heart or ascending aorta. We could consider additional evaluation of the aorta and possibly transesophageal echocardiogram. Regardless the patient is going to need to be anticoagulated. He is in a sinus rhythm and is been in a sinus rhythm throughout his hospitalization. He had a follow-up CT of the brain yesterday and this showed nothing new. He remains confused but not agitated. Patient has had adenocarcinoma the superior segment of the right lower lung. This is been treated with radiation. His admit chest x-ray showed right lower lung infiltrate versus a radiation injury. On today's chest x-ray the evolution appears to be secondary to a pneumonia which is not quite resolved. There are no positive cultures. His electrolytes are normal. Glucoses are normal. CBC is normal. INR is prolonged to 3.5. 05/11/2017. Patient was seen with his brother. Patient's a little more alert. He was able to answer a few more questions than before. He has an NG tube down. Swallowing is a new problem for him. Bone scan is noted. Doppler venogram showed no evidence of deep venous thrombophlebitis. Electrolytes are normal. Creatinine is 1.2. BUN is 32. White blood cell count is 14,700 with 86.8 segs. H&H 15.4/43.0. Patient is afebrile times many days. There are no positive cultures. INR is dropped to 2.6. Today I will restart Coumadin 5 mg daily. Previously the patient was on 10 mg daily. We do not know the source of bilateral cerebral nervous system emboli. do we need transesophageal echocardiogram. 05/13/2017. His 72-year-old black male who has adenocarcinoma the lung. He presented with an altered mental status and it appears that he has bilateral central nervous system emboli. See MRI of the brain. His mental status is improved some. He has an infection of the right forearm which is being treated. Patient has underlying COPD with bronchospastic disease which is under good control. Other problems include high blood pressure, hyperlipidemia and degenerative joint disease. Patient is slowly improving. Coumadin was restarted 1 or 2 days ago. Today's INR is 1.7 and I suspect it will lengthen slightly. This is being given for multiple emboli to the central nervous system. Source of emboli is unknown. Patient has a regular sinus rhythm. He is on 5 mg of Coumadin daily. 05/16/2017. Patient was seen along with his daughter who is feeding. She says he is swallowing but he is very slow to eat any cough occasionally when he swallows. Patient is more alert. His daughter says he recognizes family and other people when they come to see him. Patient still has his NG tube in for feeding. His nurse says is been no problem with residual residual. NG tube did have to be replaced last night. I have asked for calorie counting but I suspect will need to continue this for a while. Today's chest x-ray shows cardiomegaly. There is slight increased markings inferior to the right hilum. I do not see any infiltrates. There is no evidence of congestive heart failure. There are no new positive cultures. INR is 1.4. Electrolytes are normal. Creatinine has increased to 1.40 with a BUN of 32. Glucoses are fair. Phosphorus and magnesium are high. White count was 21,482 segs. H&H 15.3/ 43.5 and platelets are 134,000. Patient's on Levaquin. I hope to discontinue this soon. Medicines and labs have been reviewed. 05/17/2017. This patient was seen with his daughter. Patient seems less able to cooperate today. Daughter says that the patient was only able to look to his left on 05/16/2017. This morning when I asked him can he see me. He says he only sees half of me but he cannot describe this additionally. I have asked in neurology come back and take a look and see if we follow had anything else occur. Patient's glucoses are under acceptable control. He has had a recent PSA of 18.4. Dr. Monteiro note from 05/16/2017 is been reviewed. Exam (Progress Note) - Constitutional Vitals: Period Temp Pulse Resp BP Sys/Huang Pulse Ox Last 24 Hr 96.7 F-98.6 F 95-102 16-20 131-156/71-90 92-99 Exam: Face symmetrical. No swelling of the lips or tongue. Neck. Symmetrical. No meningismus. Lymphatics. No submandibular cervical or supraclavicular adenopathy Chest is wheeze free but there is slight loose large airway congestion Heart no gallop Abdomen is nontender and nondistended; bowel sounds are positive 4 but somewhat hypoactive Lower extremities right calf is slightly larger than the left calf; Doppler venograms were negative Psychiatric... See above. Calm but still confused. Neurologic. Less able to cooperate today. He may have experienced some visual changes. Long track motor functions intact. Plan: 05/06/2017. 1. Follow-up echo report when available. 2. Continue present pulmonary treatment. 3. Agree with Lovenox. 4. See orders. 05/07/2017. 1. See today's note above. 2. Would be very helpful to know the source of the patient's bilateral central nervous system embolic disease 05/08/2017. 1. See my note above. 2. CT of the head showed no acute changes 3. CT of abdomen and pelvis showed no new findings. 05/09/2017. 1. See today's note above. 2. INR 3.4 on 10 mg of Coumadin daily will hold today. This is probably not a safe level for the patient 3. Continue antibiotics. Still small residual right lower lungInfiltrate 05/11/2017. 1. See my note for today above. 2. Restart Coumadin 5 mg daily 3. Source of cerebral emboli is unknown. Should be either the heart the proximal aorta. Should we do additional 10 05/13/2017 1. See my note above. 2. Pulmonary status is stable. 3. Altered mental status is improving 4. Daily INR. Coumadin 5 mg daily. 05/16/2017. 1. See my note above. 2. Watch creatinine 3. Probably needs an NG tube feedings a little longer. 4. Hope to stop Levaquin 7 5. Mentation is stable. 05/17/2017. 1. See my note above. 3. We will ask neurology to take another look. Exam (Progress Note) - Constitutional Vitals: Period Temp Pulse Resp BP Sys/Huang Pulse Ox Last 24 Hr 96.6 F-98.6 F 96-124 18-22 128-168/64-96 90-100 Results - Labs CBC & BMP: 05/16/17 04:14 05/16/17 04:14
--- NOTE | 2017-05-17 10:52 | Case Mgmt Physician Query Form ---
TB Signs and Symptoms Screening ([place]) INSTRUCTIONS: To be completed annually on residents/staff with a significant Tuberculin Skin Test (TST) upon admission/hire or a prior significant TST. To be completed on all staff at hire. Please respond to each listed symptom with an (X) in either the "YES" or "NO" box. Do you currently have any of the following symptoms: YES NO ( ) (X) A cough If yes, is it: ( ) Productive ( ) Non- productive ( ) ( X) Hemoptysis (spitting up blood) ( ) (X ) Chest pains ( ) ( X) Weight Loss ( ) (X ) Fever ( ) (X ) Night Sweats ( ) ( X) Weakness ( ) (X) Loss of Appetite ( ) ( X) Difficulty Breathing If you answered YES" to any of the above questions, how long have symptoms been present? Comments: BAR
[2017-05-17] MEDS: EZETIMIBE 10 MG TABLET PO SCH (12:06)
[2017-05-17] MEDS: MONTELUKAST 10 MG TABLET PO SCH (12:06)
[2017-05-17] MEDS: PANTOPRAZOLE 40 MG VIAL IV SCH (12:07)
[2017-05-17] MEDS: methylPREDNISolone SOD SUC 40 MG/1 ML VIAL IV SCH ×2 (12:07→22:23)
[2017-05-17] MEDS: ENOXAPARIN 60 MG/0.6 ML SYRINGE SUBCUT SCH ×2 (12:07→22:23)
--- NOTE | 2017-05-17 16:03 | Neurology Progress Note ---
Neurology - PN : Subjective Interval history: Patient seen and examined. Chart reviewed. MRI of the brain done on 05/12/2017 revealed multiple infarcts involving the right frontal, temporal, parietal lobe , bilateral occipital, left posterior parietal and right cerebellum. Patient has been making some progress with therapy however today he is complaining of no vision whatsoever. He reported that he cannot see anything. I am concerned about extension of the stroke versus new strokes. Exam (Progress Note) - Constitutional Vitals: Period Temp Pulse Resp BP Sys/Huang Pulse Ox Last 24 Hr 96.6 F-98.3 F 100-124 18-24 131-168/64-96 90-100 Exam: GENERAL: Patient is in no acute distress. NECK: Neck is supple. There is no JVD. No carotid bruits present. No thyroid masses. CVS: First and second heart sounds are normal. There is no S3 present. Regular rate and rhythm. RESPIRATORY: Lungs are clear to auscultation without any rales or rhonchi. ABDOMEN: Soft and non-tender. Bowel sounds are present. There is no hepatosplenomegaly. EXT: There is no palpable edema. Peripheral pulses are present. Skin: No rashes Central Nervous system: General: Alert, awake Speech: Fluent Comprehension: Fair Facial expressions: Normal Cranial Nerves: CN1/Olfactory: Normal CN II/ Optic: Patient reported no vision. He cannot see anything. CN III, and : LAZARO & EOMI CN V: Normal & intact CN VII: face is symmetric CNVIII: Normal CN XI/X/XI/XII: Intact and Normal Motor: Bulk and Tone is normal. Strength symmetrical and 3/5 Sensory: Unreliable Reflexes: 1+ and symmetrical Cerebellar function: Slow finger to nose and heel to vogel testing. Toes: Equivocal Gait: Not tested Results - Labs CBC & BMP: 05/16/17 04:14 05/16/17 04:14 Assessment and Plan (1) Altered mental status Status: Resolved Assessment and plan: This has improved Current Visit: Yes (2) Acute CVA (cerebrovascular accident) Status: Acute Assessment and plan: Continue Coumadin. INR is 1.5 Continue Lovenox Repeat MRI of the brain without contrast Current Visit: Yes
--- NOTE | 2017-05-17 17:24 | Hospitalist Progress Note ---
Assessment and Plan (1) Altered mental status Status: Resolved Assessment and plan: Mr. Juarez has history of lung cancer. The patient has sustained stroke consistent with embolic phenomenon. The patient's ultrasound of left upper extremity reveals evidence of thrombo-phlebitis. We will continue coagulation with Lovenox and INR continues to increase as expected. Once INR is greater than 2 the Lovenox can be discontinued. The NG tube is out and are trying re- feed the patient. If unsuccessful the patient may require PEG tube. Dr. Rocio Laird has reevaluated the patient and ordered repeat MRI scan. Current Visit: Yes Hospitalist: Subjective Interval history: The patient is resting quietly in bed today. He complains of decreased vision. The patient does not complain of chest pain or shortness of breath. Exam - Constitutional Vitals: Period Temp Pulse Resp BP Sys/Huang Pulse Ox Last 24 Hr 96.6 F-98.3 F 100-124 18-24 131-168/64-96 90-100 Exam: Constitutional System: No distress. No tremulousness. Head: Normocephalic, atraumatic. Ears, Nose and Throat System: No evidence of Otitis or Mastoiditis. No epistaxis or discharge Eyes System: Pupils equal, round, and reactive. Extraocular muscles intact. Neck: Supple, without adenopathy, No jugular venous distention. No thyromegaly , neck mass, or prior surgery apparent. Respiratory System: Chest clear to auscultation. Cardiovascular System: Heart with regular rate and rhythm. No murmur. GI System: Abdomen soft, nontender. Normo active bowel sounds present. Musculoskeletal System: limbs with no pedal edema. Tenderness redness and swelling of left forearm Neurological System: No discernable sensory deficit. No aphasia Results - Labs CBC & BMP: 05/16/17 04:14 05/16/17 04:14 Lab Results: I have reviewed the past 24 hour labs
[2017-05-17] MEDS: WARFARIN 7.5 MG TABLET PO SCH (18:22)
[2017-05-18] MEDS: LEVOFLOXACIN INJ 500 MG in PREMIX 1 EACH IV SCH ×2 (00:06→23:04)
[2017-05-18] MEDS: ALBUTEROL/IPRATROPIUM 3 ML NEB RESP TX SCH ×7 (04:00→23:45)
[2017-05-18 05:10] LABS: Basophils % 0.2 % (0.0-0.8); Hematocrit 43.2 VOL% (42.0-52.0); Hemoglobin 15.4 GM/DL (14.0-18.0); Immature Granulocytes % 3.2 %; Immature Granulocytes Absolute 0.75 #; Lymphocytes # 1.3 10*3/uL (1.4-4.0); Lymphocytes % 5.4 % (21.2-54.2); Mean Corpuscular HGB Conc 35.6 GM/DL (32-36); Mean Corpuscular Hemoglobin 27 PG (27-34); Mean Corpuscular Volume 75.1 FL (87-102); Mean Platelet Volume 10.8 FL (9.6-12.0); Monocytes # 1.6 10*3/uL (0.11-0.8); Monocytes % 6.7 % (1.7-12.7); Neutrophils # 19.6 10*3/uL (1.4-7.4); Neutrophils % 84.5 % (38.7-73.9); Platelet Count 124 T/CUMM (130-400); Red Blood Count 5.75 MC/CUMM (3.8-5.5); Red Cell Distribution Width 15.4 % (9.3-17.3); White Blood Count 23.2 T/CUMM (4-12)
[2017-05-18 05:27] LABS: INR 2.4
[2017-05-18 05:36] LABS: Calcium 8.8 MG/DL (8.5-10.1); Osmolality,Calculated 285.8 MOS/KG (273-304); Potassium 4.7 MMOL/L (3.5-5.1)
[2017-05-18 06:05] LABS: Anisocytosis 1+; Band Neutrophils 2 % (0-10); Lymphocytes 4 % (20-55); Platelet Estimate Adequate; Segmented Neutrophils 90 % (50-85); Total Cells Counted 100
[2017-05-18 06:13] LABS: PT Patient Result 26.8 SECS
[2017-05-18] MEDS: INSULIN REGULAR 100 UNIT/ML SUBCUT SCH ×4 (06:42→18:33)
--- NOTE | 2017-05-18 10:47 | Pulmonology Progress Note ---
Pulmonary - PN: Subj Interval history: Mr. Juarez is a 72-year-old -[place] male who we saw in initial pulmonary consultation on 05/05/2017. At that time, our impressions were: 1. Altered mental status which is probably secondary to multiple bilateral cerebral emboli. Source is undetermined but would most likely be from the heart or ascending aorta. 2. Possible right lower lung pneumonia. Bacterial versus radiation injury. 3. COPD. Asthma. 4. 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 5. Past history tobacco abuse. Stop smoking 2002 6. History of asbestos exposure 7. Hyperlipidemia 8. High blood pressure 9. Degenerative joint disease 10. Chronic allergic sinusitis 11. Doppler venogram done 05/15/2017 showed occlusive thrombus in the left brachial vein and a nonocclusive thrombus and a portion of the left basilic vein. 05/06/2017. The patient was seen today along with his brother. Patient is definitely more awake and alert this morning. He is oriented at least to person and place. Carotid ultrasound showed less than 50% stenosis in both ICAs with heterogenous plaque formation. There was antegrade flow in both vertebral arteries. Doppler venograms showed no evidence of deep venous thrombophlebitis within either lower extremity. Echocardiogram was ordered yesterday, but has not yet been done. Chest x-ray today shows a probable right lower lung infiltrate. He is presently being treated with Cleocin and Levaquin. We have asked for sputum, but thus far the patient has not been able to produce a sputum for testing. He has remained afebrile. His white count is normal. Medications have been reviewed. We made no changes today. Labs have been reviewed. No new labs were drawn today. Blood cultures are negative at day 1. 05/07/2017. Patient's pulmonary status is stable today. His mentation is about the same as it was yesterday. Review of microbiology reveals no positive cultures. INR is 1.2. Electrolytes are normal. Creatinine is 0.90 with a BUN of 16. Calcium is 9.1 and magnesium is 2.5. Labs been reviewed. Medicines have been reviewed. Echocardiogram. Ejection fraction 55%. Grade 1/4 diastolic dysfunction. Trace of mitral valve regurgitation with pulmonary artery pressures in the 40-45 % range. Mild to moderate tricuspid regurgitation with slight enlargement of the right atrium with normal size right ventricle. There is no mention of abnormal valves which might be a source of embolic disease.. Based on the distribution of the patient's central nervous system emboli he would think that this would come from either left heart origin of the ascending aorta. Maybe we should consider additional evaluation. 05/08/2017. This patient's mental status was somewhat altered earlier today and a CT scan of the head was done. This showed no acute changes. See report for additional details. Patient also had a CT of the abdomen and pelvis and this showed all lytic lesions in the bone which were present 2013. No other abnormality. Patient had a KUB of the abdomen on 05/07/2017 and it appeared that he had a good bit of fecal retention. Electrolytes normal. Creatinine is 0.9 with a BUN of 12 white count is 12,900 with 79.569.3 lymphs and 8.6 monocytes H& H is 15.0 41.2. Platelets 189,000. Liver function tests are normal. Her previous ammonia level was normal at 16 05/09/2017. This patient was admitted with altered mental status. He had multiple small emboli in the right and left brain. This definitely appeared to be embolic. As expected his carotids were negative. His echocardiogram did not show a definite source of emboli. Emboli most likely would only come from his heart or ascending aorta. We could consider additional evaluation of the aorta and possibly transesophageal echocardiogram. Regardless the patient is going to need to be anticoagulated. He is in a sinus rhythm and is been in a sinus rhythm throughout his hospitalization. He had a follow-up CT of the brain yesterday and this showed nothing new. He remains confused but not agitated. Patient has had adenocarcinoma the superior segment of the right lower lung. This is been treated with radiation. His admit chest x-ray showed right lower lung infiltrate versus a radiation injury. On today's chest x-ray the evolution appears to be secondary to a pneumonia which is not quite resolved. There are no positive cultures. His electrolytes are normal. Glucoses are normal. CBC is normal. INR is prolonged to 3.5. 05/11/2017. Patient was seen with his brother. Patient's a little more alert. He was able to answer a few more questions than before. He has an NG tube down. Swallowing is a new problem for him. Bone scan is noted. Doppler venogram showed no evidence of deep venous thrombophlebitis. Electrolytes are normal. Creatinine is 1.2. BUN is 32. White blood cell count is 14,700 with 86.8 segs. H&H 15.4/43.0. Patient is afebrile times many days. There are no positive cultures. INR is dropped to 2.6. Today I will restart Coumadin 5 mg daily. Previously the patient was on 10 mg daily. We do not know the source of bilateral cerebral nervous system emboli. do we need transesophageal echocardiogram. 05/13/2017. His 72-year-old black male who has adenocarcinoma the lung. He presented with an altered mental status and it appears that he has bilateral central nervous system emboli. See MRI of the brain. His mental status is improved some. He has an infection of the right forearm which is being treated. Patient has underlying COPD with bronchospastic disease which is under good control. Other problems include high blood pressure, hyperlipidemia and degenerative joint disease. Patient is slowly improving. Coumadin was restarted 1 or 2 days ago. Today's INR is 1.7 and I suspect it will lengthen slightly. This is being given for multiple emboli to the central nervous system. Source of emboli is unknown. Patient has a regular sinus rhythm. He is on 5 mg of Coumadin daily. 05/16/2017. Patient was seen along with his daughter who is feeding. She says he is swallowing but he is very slow to eat any cough occasionally when he swallows. Patient is more alert. His daughter says he recognizes family and other people when they come to see him. Patient still has his NG tube in for feeding. His nurse says is been no problem with residual residual. NG tube did have to be replaced last night. I have asked for calorie counting but I suspect will need to continue this for a while. Today's chest x-ray shows cardiomegaly. There is slight increased markings inferior to the right hilum. I do not see any infiltrates. There is no evidence of congestive heart failure. There are no new positive cultures. INR is 1.4. Electrolytes are normal. Creatinine has increased to 1.40 with a BUN of 32. Glucoses are fair. Phosphorus and magnesium are high. White count was 21,482 segs. H&H 15.3/ 43.5 and platelets are 134,000. Patient's on Levaquin. I hope to discontinue this soon. Medicines and labs have been reviewed. 05/17/2017. This patient was seen with his daughter. Patient seems less able to cooperate today. Daughter says that the patient was only able to look to his left on 05/16/2017. This morning when I asked him can he see me. He says he only sees half of me but he cannot describe this additionally. I have asked in neurology come back and take a look and see if we follow had anything else occur. Patient's glucoses are under acceptable control. He has had a recent PSA of 18.4. Dr. Monteiro note from 05/16/2017 is been reviewed. 05/18/2017. Patient was seen along with 1 of his daughters, his brother and Carlos Alberto Parker nurse practitioner. Patient is definitely more active and more alert and oriented today. He says he still cannot see. He is for an MRI of the brain later on today. I have reviewed Dr. Fernando Hoyos neurology note. Patient's on Coumadin 7-1/2 mg daily and today's INR has jumped from 1.5-2.4. White count remains elevated at 23,200. H&H is 15.4/43.2. Platelets are 124, 000. Electrolytes are normal. Creatinine is 1.20 and BUN is 34 magnesium is elevated at 3.0. Exam (Progress Note) - Constitutional Vitals: Period Temp Pulse Resp BP Sys/Huang Pulse Ox Last 24 Hr 96.7 F-98.6 F 95-102 16-20 131-156/71-90 92-99 Exam: Face symmetrical. No swelling of the lips or tongue. Neck. Symmetrical. No meningismus. Lymphatics. No submandibular cervical or supraclavicular adenopathy Chest is wheeze free but there is slight loose large airway congestion Heart no gallop Abdomen is nontender and nondistended; bowel sounds are positive 4 but somewhat hypoactive Lower extremities right calf is slightly larger than the left calf; Doppler venograms were negative Psychiatric... See above. Calm but still confused. Neurologic. Less able to cooperate today. He may have experienced some visual changes. Long track motor functions intact. Plan: 05/06/2017. 1. Follow-up echo report when available. 2. Continue present pulmonary treatment. 3. Agree with Lovenox. 4. See orders. 05/07/2017. 1. See today's note above. 2. Would be very helpful to know the source of the patient's bilateral central nervous system embolic disease 05/08/2017. 1. See my note above. 2. CT of the head showed no acute changes 3. CT of abdomen and pelvis showed no new findings. 05/09/2017. 1. See today's note above. 2. INR 3.4 on 10 mg of Coumadin daily will hold today. This is probably not a safe level for the patient 3. Continue antibiotics. Still small residual right lower lungInfiltrate 05/11/2017. 1. See my note for today above. 2. Restart Coumadin 5 mg daily 3. Source of cerebral emboli is unknown. Should be either the heart the proximal aorta. Should we do additional 10 05/13/2017 1. See my note above. 2. Pulmonary status is stable. 3. Altered mental status is improving 4. Daily INR. Coumadin 5 mg daily. 05/16/2017. 1. See my note above. 2. Watch creatinine 3. Probably needs an NG tube feedings a little longer. 4. Hope to stop Levaquin 7 5. Mentation is stable. 05/17/2017. 1. See my note above. 3. We will ask neurology to take another look. 05/18/2017. 1. See today's note above 2. MRI of the brain today 3. INR is increased to 2.4 Exam (Progress Note) - Constitutional Vitals: Period Temp Pulse Resp BP Sys/Huang Pulse Ox Last 24 Hr 96.6 F-98.9 F 55-123 18-24 131-161/73-94 78-99 Results - Labs CBC & BMP: 05/18/17 04:53 05/18/17 04:53
[2017-05-18] MEDS: ENOXAPARIN 60 MG/0.6 ML SYRINGE SUBCUT SCH (10:48)
[2017-05-18] MEDS: EZETIMIBE 10 MG TABLET PO SCH (10:48)
[2017-05-18] MEDS: MONTELUKAST 10 MG TABLET PO SCH (10:49)
[2017-05-18] MEDS: methylPREDNISolone SOD SUC 40 MG/1 ML VIAL IV SCH ×2 (10:49→22:39)
[2017-05-18] MEDS: PANTOPRAZOLE 40 MG VIAL IV SCH (10:59)
--- NOTE | 2017-05-18 15:23 | Neurology Progress Note ---
Neurology - PN : Subjective Interval history: Patient seems to be doing about the same. Had an MRI done but the results and the reports are still pending. No new problems reported. Venous Dopplers report noted. Exam (Progress Note) - Constitutional Vitals: Period Temp Pulse Resp BP Sys/Huang Pulse Ox Last 24 Hr 96.6 F-98.9 F 55-123 18-26 138-161/73-94 78-99 Exam: GENERAL: Patient is in no acute distress. NECK: Neck is supple. There is no JVD. No carotid bruits present. No thyroid masses. CVS: First and second heart sounds are normal. There is no S3 present. Regular rate and rhythm. RESPIRATORY: Lungs are clear to auscultation without any rales or rhonchi. ABDOMEN: Soft and non-tender. Bowel sounds are present. There is no hepatosplenomegaly. EXT: There is no palpable edema. Peripheral pulses are present. Skin: No rashes Central Nervous system: General: Alert, awake Speech: Fluent Comprehension: Fair Facial expressions: Normal Cranial Nerves: CN1/Olfactory: Normal CN II/ Optic: Patient reported no vision. He cannot see anything. CN III, and : LAZARO & EOMI CN V: Normal & intact CN VII: face is symmetric CNVIII: Normal CN XI/X/XI/XII: Intact and Normal Motor: Bulk and Tone is normal. Strength symmetrical and 3/5 Sensory: Unreliable Reflexes: 1+ and symmetrical Cerebellar function: Slow finger to nose and heel to vogel testing. Toes: Equivocal Gait: Not tested Results - Labs CBC & BMP: 05/18/17 04:53 05/18/17 04:53 Assessment and Plan (1) Altered mental status Status: Resolved Assessment and plan: This has improved Current Visit: Yes (2) Acute CVA (cerebrovascular accident) Status: Acute Assessment and plan: Continue Coumadin. INR is 2.4 Stop Lovenox Await for MRI report Current Visit: Yes
--- NOTE | 2017-05-18 16:51 | XRay Report ---
Portable chest. Indication: Leukocytosis. Cough. Lung cancer. Comparison: May 16, 2017. The heart is normal in size. The pulmonary vasculature is normal. The lung talbert are hyperexpanded. There is are calcified granulomas within the lung talbert. There is scarring at the left lateral costophrenic angle. There is increased opacity in the medial aspects of the right lung base, more prominent than seen previously, concerning for developing infiltrate. No pleural effusion. No pneumothorax. Stable osseous structures. Impression: Findings concerning for developing pneumonia in the medial aspects of the right lung base. PROCEDURE INTERPRETED AT [facility] DEPARTMENT OF RADIOLOGY Final Report Signed by: Dr. Juany Christiansen
[2017-05-18] MEDS ORDERED: WARFARIN 5 MG TABLET PO SCH (18:00)
--- NOTE | 2017-05-18 18:12 | Hospitalist Progress Note ---
Assessment and Plan (1) Altered mental status Status: Resolved Assessment and plan: Mr. Juarez has history of lung cancer. The patient has sustained stroke consistent with embolic phenomenon. The patient's ultrasound of left upper extremity reveals evidence of thrombo-phlebitis. We will continue coagulation with Lovenox and INR continues to increase as expected. Once INR is greater than 2 the Lovenox can be discontinued. The patient is tolerating oral diet. We await MRI scan Current Visit: Yes Hospitalist: Subjective Interval history: The patient has no complaint of acute pain or shortness of breath. The patient notes continued difficulty with vision. The patient is cooperative. Exam - Constitutional Vitals: Period Temp Pulse Resp BP Sys/Huang Pulse Ox Last 24 Hr 97.0 F-98.9 F 55-123 18-26 118-161/65-94 78-99 Exam: Constitutional System: No distress. No tremulousness. Head: Normocephalic, atraumatic. Ears, Nose and Throat System: No evidence of Otitis or Mastoiditis. No epistaxis or discharge Eyes System: Pupils equal, round, and reactive. Extraocular muscles intact. Neck: Supple, without adenopathy, No jugular venous distention. No thyromegaly , neck mass, or prior surgery apparent. Respiratory System: Chest clear to auscultation. Cardiovascular System: Heart with regular rate and rhythm. No murmur. GI System: Abdomen soft, nontender. Normo active bowel sounds present. Musculoskeletal System: limbs with no pedal edema. Tenderness redness and swelling of left forearm Neurological System: No discernable sensory deficit. No aphasia Results - Labs CBC & BMP: 05/18/17 04:53 05/18/17 04:53 Lab Results: I have reviewed the past 24 hour labs
[2017-05-19] MEDS: INSULIN REGULAR 100 UNIT/ML SUBCUT SCH ×4 (00:27→18:49)
[2017-05-19] MEDS: ALBUTEROL/IPRATROPIUM 3 ML NEB RESP TX SCH ×6 (03:06→23:46)
[2017-05-19 07:52] LABS: Calcium 8.8 MG/DL (8.5-10.1); Magnesium 2.9 MG/DL (1.8-2.4); Osmolality,Calculated 286.7 MOS/KG (273-304); Phosphorous 3.9 MG/DL (2.5-4.9); Potassium 4.3 MMOL/L (3.5-5.1); Prealbumin 32.9 MG/DL (20-40)
[2017-05-19 08:20] LABS: PT Patient Result 92.3 SECS
[2017-05-19 08:24] LABS: INR 7.7
[2017-05-19] MEDS: PANTOPRAZOLE 40 MG VIAL IV SCH (10:28)
[2017-05-19] MEDS: EZETIMIBE 10 MG TABLET PO SCH (10:32)
[2017-05-19] MEDS: MONTELUKAST 10 MG TABLET PO SCH (10:32)
[2017-05-19] MEDS: methylPREDNISolone SOD SUC 40 MG/1 ML VIAL IV SCH (12:47)
[2017-05-19] MEDS ORDERED: PHYTONADIONE 10 MG/1 ML AMP SUBCUT ONE (13:49)
--- NOTE | 2017-05-19 16:46 | Hospitalist Progress Note ---
Assessment and Plan (1) Altered mental status Status: Resolved Assessment and plan: Mr. Juarez has history of lung cancer. The patient has sustained stroke consistent with embolic phenomenon. The patient's ultrasound of left upper extremity reveals evidence of thrombo-phlebitis. The patient's INR is therapeutic and Lovenox is now discontinued. The patient is tolerating oral diet. We await MRI scan report Current Visit: Yes Hospitalist: Subjective Interval history: Mr. Cash is resting quietly in bed today. The patient still has minimal vision. He has some difficulty with strength in the right hand. The patient is more alert and interactive than it was yesterday. The patient's niece is at the bedside. We discussed his ongoing incremental downhill course of illness. The patient appears to have deep vein thrombosis in the left upper arm which is likely on account of hypercoagulability due to his lung cancer. He seems to have stroke syndrome and the Coumadin anticoagulation does not appear to be effective at eliminating these episodes. I recommended that the patient's family pursue [facility] care. Exam - Constitutional Vitals: Period Temp Pulse Resp BP Sys/Huang Pulse Ox Last 24 Hr 96.7 F-97.5 F 97-117 15-20 139-165/72-88 92-98 Exam: Constitutional System: No distress. No tremulousness. Head: Normocephalic, atraumatic. Ears, Nose and Throat System: No evidence of Otitis or Mastoiditis. No epistaxis or discharge Eyes System: Pupils equal, round, and reactive. Extraocular muscles intact. Neck: Supple, without adenopathy, No jugular venous distention. No thyromegaly , neck mass, or prior surgery apparent. Respiratory System: Chest clear to auscultation. Cardiovascular System: Heart with regular rate and rhythm. No murmur. GI System: Abdomen soft, nontender. Normo active bowel sounds present. Musculoskeletal System: limbs with no pedal edema. Tenderness redness and swelling of left forearm Neurological System: No discernable sensory deficit. No aphasia Results - Labs CBC & BMP: 05/18/17 04:53 05/19/17 06:39 Lab Results: I have reviewed the past 24 hour labs Specialty Discharge - Follow Up or Referrals
[2017-05-20] MEDS: ALBUTEROL/IPRATROPIUM 3 ML NEB RESP TX SCH ×3 (02:53→19:56)
[2017-05-20 05:39] LABS: Platelet Estimate Decreased
[2017-05-20 05:40] LABS: Giant Platelets Few; Hypochromasia 1+
[2017-05-20 05:43] LABS: Basophils # 0.1 10*3/uL (0.0-0.2); Basophils % 0.3 % (0.0-0.8); Eosinophils # 0.2 10*3/uL (0.0-0.87); Eosinophils % 0.7 % (0.00-10.9); Hematocrit 45.4 VOL% (42.0-52.0); Hemoglobin 16.4 GM/DL (14.0-18.0); Immature Granulocytes % 2.8 %; Immature Granulocytes Absolute 0.64 #; Lymphocytes # 1.6 10*3/uL (1.4-4.0); Lymphocytes % 7.3 % (21.2-54.2); Mean Corpuscular HGB Conc 36.1 GM/DL (32-36); Mean Corpuscular Hemoglobin 27 PG (27-34); Mean Corpuscular Volume 74.8 FL (87-102); Mean Platelet Volume 10.8 FL (9.6-12.0); Monocytes # 1.8 10*3/uL (0.11-0.8); Monocytes % 7.8 % (1.7-12.7); NRBC # 0.02 10*3/uL; Neutrophils # 18.4 10*3/uL (1.4-7.4); Neutrophils % 81.1 % (38.7-73.9); Red Blood Count 6.07 MC/CUMM (3.8-5.5); Red Cell Distribution Width 15.8 % (9.3-17.3); White Blood Count 22.6 T/CUMM (4-12)
[2017-05-20 05:46] LABS: Platelet Count 90 T/CUMM (130-400)
[2017-05-20 05:48] LABS: Band Neutrophils 2 % (0-10); Eosinophils 2 % (0-10); Lymphocytes 7 % (20-55); Segmented Neutrophils 81 % (50-85); Total Cells Counted 100
[2017-05-20 06:06] LABS: INR 3.6
[2017-05-20 06:10] LABS: PT Patient Result 41.6 SECS
[2017-05-20] MEDS: INSULIN REGULAR 100 UNIT/ML SUBCUT SCH ×4 (06:22→18:39)
[2017-05-20 06:42] LABS: Calcium 9.4 MG/DL (8.5-10.1); Magnesium 2.9 MG/DL (1.8-2.4); Osmolality,Calculated 292.3 MOS/KG (273-304); Potassium 4.2 MMOL/L (3.5-5.1)
--- NOTE | 2017-05-20 08:29 | General Surgery Progress Note ---
Assessment and Plan - Time spent with patient Time spent with patient: Less than 30 minutes (1) Cellulitis of right upper extremity Status: Acute Assessment and plan: 05/12/2017. Right upper extremity cellulitis. No evidence of DVT. This may be somewhat related to dependency versus IV infiltration. We see no obvious wounds or abrasions, and he gives no known source of trauma. We will continue antibiotics, local care and light compression, elevation, and close observation. This should resolve but will be available in case there are changes 05/14/2017. Right upper extremity cellulitis is resolving. He does still have some residual blistering, but no advancing cellulitis and nothing to suggest any type of underlying deep space abscess. I doubt this is the source of the cytosis, and did not seem to be any surgical intervention warranted at this point. We will continue to watch closely, though it looks like this area should just respond to skin care and close observation. We do advise continue to elevate his extremities as he may have some degree of dependent edema post CVA. 05/13/17 Cellulitis of right upper extremity, clearing. Skin excoriations are healing well. We'll just keep the areas moist and continue SONG, as this is the best and most reasonable way to keep the areas dressed, but he certainly doesn' t need any true compression. 05/20/2017. Right forearm cellulitis appears to have cleared. He has very minimal residual skin excoriations, which appear to be drying. We recommend continued Aquaphor, Adaptic and song for protection. Left upper extremity DVT appears stable. We will be available if needed. Current Visit: Yes Subjective Patient reports: Present: other (Patient is awake and confused but conversant with his brother and myself today. He denies pain or other complaints.) Exam - Constitutional Vitals: Period Temp Pulse Resp BP Sys/Huang Pulse Ox Last 24 Hr 96.7 F-97.3 F 99-117 15-20 121-165/72-91 92-100 General appearance: no acute distress - Extremities Exam Extremities exam: Present: other (Right forearm without induration or erythema. Superficial skin excoriations are now healing and essentially all are dried. There are no new blisters, no advancing erythema, no swelling. Venous Doppler was originally negative for DVT. Left arm without any unusual swelling or induration. There is no erythema in the office much less tense. It does not seem tender. He has a known left upper extremity DVT and is being treated with Coumadin.) Results - Labs CBC & BMP: 05/20/17 04:43 05/20/17 04:43 Lab Results: I have reviewed the past 24 hour labs Specialty Discharge - Follow Up or Referrals
[2017-05-20] MEDS: EZETIMIBE 10 MG TABLET PO SCH (08:55)
[2017-05-20] MEDS: MONTELUKAST 10 MG TABLET PO SCH (08:56)
[2017-05-20] MEDS: PANTOPRAZOLE 40 MG VIAL IV SCH (08:56)
[2017-05-20] MEDS ORDERED: NIFEdipine 10 MG CAPSULE PO PRN (10:19)
--- NOTE | 2017-05-20 10:21 | Hospitalist Progress Note ---
Assessment and Plan (1) Altered mental status Status: Resolved Assessment and plan: Mr. Juarez has history of lung cancer. The patient has sustained stroke consistent with embolic phenomenon. The patient's ultrasound of left upper extremity reveals evidence of thrombo-phlebitis. The patient's INR is therapeutic and Lovenox is now discontinued. Coumadin is being held and INR is 3.6 today. He can likely restart Coumadin tomorrow. The patient is tolerating oral diet. I coordinated care with the residential case manager Cristy Leonard today and the family is exploring shelter care at several nursing homes in [facility]. Current Visit: Yes Hospitalist: Subjective Interval history: Mr. Juarez is resting quietly in bed today. He is making slow progress on improving his mobility. The patient has marginal oral intake. Exam - Constitutional Vitals: Period Temp Pulse Resp BP Sys/Huang Pulse Ox Last 24 Hr 96.7 F-97.5 F 91-117 15-20 121-165/72-91 92-100 Exam: Constitutional System: No distress. No tremulousness. Head: Normocephalic, atraumatic. Ears, Nose and Throat System: No evidence of Otitis or Mastoiditis. No epistaxis or discharge Eyes System: Pupils equal, round, and reactive. Extraocular muscles intact. Neck: Supple, without adenopathy, No jugular venous distention. No thyromegaly , neck mass, or prior surgery apparent. Respiratory System: Chest clear to auscultation. Cardiovascular System: Heart with regular rate and rhythm. No murmur. GI System: Abdomen soft, nontender. Normo active bowel sounds present. Musculoskeletal System: limbs with no pedal edema. Tenderness redness and swelling of left forearm Neurological System: No discernable sensory deficit. No aphasia Results - Labs CBC & BMP: 05/20/17 04:43 05/20/17 04:43 Lab Results: I have reviewed the past 24 hour labs Labs: INR equals 3.6 Specialty Discharge - Follow Up or Referrals
--- NOTE | 2017-05-20 11:16 | Pulmonology Progress Note ---
Pulmonary - PN: Subj Interval history: Mr. Juarez is a 72-year-old -[place]in[place] male who we saw in initial pulmonary consultation on 05/05/2017. At that time, our impressions were: 1. Altered mental status which is probably secondary to multiple bilateral cerebral emboli. Source is undetermined but would most likely be from the heart or ascending aorta. 2. Possible right lower lung pneumonia. Bacterial versus radiation injury. 3. COPD. Asthma. 4. 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 5. Past history tobacco abuse. Stop smoking 2002 6. History of asbestos exposure 7. Hyperlipidemia 8. High blood pressure 9. Degenerative joint disease 10. Chronic allergic sinusitis 11. Doppler venogram done 05/15/2017 showed occlusive thrombus in the left brachial vein and a nonocclusive thrombus and a portion of the left basilic vein. 05/06/2017. The patient was seen today along with his brother. Patient is definitely more awake and alert this morning. He is oriented at least to person and place. Carotid ultrasound showed less than 50% stenosis in both ICAs with heterogenous plaque formation. There was antegrade flow in both vertebral arteries. Doppler venograms showed no evidence of deep venous thrombophlebitis within either lower extremity. Echocardiogram was ordered yesterday, but has not yet been done. Chest x-ray today shows a probable right lower lung infiltrate. He is presently being treated with Cleocin and Levaquin. We have asked for sputum, but thus far the patient has not been able to produce a sputum for testing. He has remained afebrile. His white count is normal. Medications have been reviewed. We made no changes today. Labs have been reviewed. No new labs were drawn today. Blood cultures are negative at day 1. 05/07/2017. Patient's pulmonary status is stable today. His mentation is about the same as it was yesterday. Review of microbiology reveals no positive cultures. INR is 1.2. Electrolytes are normal. Creatinine is 0.90 with a BUN of 16. Calcium is 9.1 and magnesium is 2.5. Labs been reviewed. Medicines have been reviewed. Echocardiogram. Ejection fraction 55%. Grade 1/4 diastolic dysfunction. Trace of mitral valve regurgitation with pulmonary artery pressures in the 40-45 % range. Mild to moderate tricuspid regurgitation with slight enlargement of the right atrium with normal size right ventricle. There is no mention of abnormal valves which might be a source of embolic disease.. Based on the distribution of the patient's central nervous system emboli he would think that this would come from either left heart origin of the ascending aorta. Maybe we should consider additional evaluation. 05/08/2017. This patient's mental status was somewhat altered earlier today and a CT scan of the head was done. This showed no acute changes. See report for additional details. Patient also had a CT of the abdomen and pelvis and this showed all lytic lesions in the bone which were present 2013. No other abnormality. Patient had a KUB of the abdomen on 05/07/2017 and it appeared that he had a good bit of fecal retention. Electrolytes normal. Creatinine is 0.9 with a BUN of 12 white count is 12,900 with 79.569.3 lymphs and 8.6 monocytes H& H is 15.0 41.2. Platelets 189,000. Liver function tests are normal. Her previous ammonia level was normal at 16 05/09/2017. This patient was admitted with altered mental status. He had multiple small emboli in the right and left brain. This definitely appeared to be embolic. As expected his carotids were negative. His echocardiogram did not show a definite source of emboli. Emboli most likely would only come from his heart or ascending aorta. We could consider additional evaluation of the aorta and possibly transesophageal echocardiogram. Regardless the patient is going to need to be anticoagulated. He is in a sinus rhythm and is been in a sinus rhythm throughout his hospitalization. He had a follow-up CT of the brain yesterday and this showed nothing new. He remains confused but not agitated. Patient has had adenocarcinoma the superior segment of the right lower lung. This is been treated with radiation. His admit chest x-ray showed right lower lung infiltrate versus a radiation injury. On today's chest x-ray the evolution appears to be secondary to a pneumonia which is not quite resolved. There are no positive cultures. His electrolytes are normal. Glucoses are normal. CBC is normal. INR is prolonged to 3.5. 05/11/2017. Patient was seen with his brother. Patient's a little more alert. He was able to answer a few more questions than before. He has an NG tube down. Swallowing is a new problem for him. Bone scan is noted. Doppler venogram showed no evidence of deep venous thrombophlebitis. Electrolytes are normal. Creatinine is 1.2. BUN is 32. White blood cell count is 14,700 with 86.8 segs. H&H 15.4/43.0. Patient is afebrile times many days. There are no positive cultures. INR is dropped to 2.6. Today I will restart Coumadin 5 mg daily. Previously the patient was on 10 mg daily. We do not know the source of bilateral cerebral nervous system emboli. do we need transesophageal echocardiogram. 05/13/2017. His 72-year-old black male who has adenocarcinoma the lung. He presented with an altered mental status and it appears that he has bilateral central nervous system emboli. See MRI of the brain. His mental status is improved some. He has an infection of the right forearm which is being treated. Patient has underlying COPD with bronchospastic disease which is under good control. Other problems include high blood pressure, hyperlipidemia and degenerative joint disease. Patient is slowly improving. Coumadin was restarted 1 or 2 days ago. Today's INR is 1.7 and I suspect it will lengthen slightly. This is being given for multiple emboli to the central nervous system. Source of emboli is unknown. Patient has a regular sinus rhythm. He is on 5 mg of Coumadin daily. 05/16/2017. Patient was seen along with his daughter who is feeding. She says he is swallowing but he is very slow to eat any cough occasionally when he swallows. Patient is more alert. His daughter says he recognizes family and other people when they come to see him. Patient still has his NG tube in for feeding. His nurse says is been no problem with residual residual. NG tube did have to be replaced last night. I have asked for calorie counting but I suspect will need to continue this for a while. Today's chest x-ray shows cardiomegaly. There is slight increased markings inferior to the right hilum. I do not see any infiltrates. There is no evidence of congestive heart failure. There are no new positive cultures. INR is 1.4. Electrolytes are normal. Creatinine has increased to 1.40 with a BUN of 32. Glucoses are fair. Phosphorus and magnesium are high. White count was 21,482 segs. H&H 15.3/ 43.5 and platelets are 134,000. Patient's on Levaquin. I hope to discontinue this soon. Medicines and labs have been reviewed. 05/17/2017. This patient was seen with his daughter. Patient seems less able to cooperate today. Daughter says that the patient was only able to look to his left on 05/16/2017. This morning when I asked him can he see me. He says he only sees half of me but he cannot describe this additionally. I have asked in neurology come back and take a look and see if we follow had anything else occur. Patient's glucoses are under acceptable control. He has had a recent PSA of 18.4. Dr. Monteiro note from 05/16/2017 is been reviewed. 05/18/2017. Patient was seen along with 1 of his daughters, his brother and Carlos Alberto Parker nurse practitioner. Patient is definitely more active and more alert and oriented today. He says he still cannot see. He is for an MRI of the brain later on today. I have reviewed Dr. Fernando Hoyos neurology note. Patient's on Coumadin 7-1/2 mg daily and today's INR has jumped from 1.5-2.4. White count remains elevated at 23,200. H&H is 15.4/43.2. Platelets are 124, 000. Electrolytes are normal. Creatinine is 1.20 and BUN is 34 magnesium is elevated at 3.0. 05/20/2017. This patient could not lie still for the follow-up MRI of his brain. He appears to have had progression of his multiple small bilateral strokes. He has been on anticoagulation. Appears that he has lost his vision. Electrolytes normal. Creatinine is 1.10 BUN is 35 white count is 22,600 with 81 segs 7 lymphs and 8 monos. Patient's been afebrile for a number of days. INR is 3.6. I think the family is considering nursing homes. Patient has underlying lung cancer. He is stable from a pulmonary standpoint. Dr. Mccormick will be available see the patient this weekend if needed. Exam (Progress Note) - Constitutional Vitals: Period Temp Pulse Resp BP Sys/Huang Pulse Ox Last 24 Hr 96.7 F-98.6 F 95-102 16-20 131-156/71-90 92-99 Exam: Face symmetrical. No swelling of the lips or tongue. Neck. Symmetrical. No meningismus. Lymphatics. No submandibular cervical or supraclavicular adenopathy Chest is wheeze free but there is slight loose large airway congestion Heart no gallop Abdomen is nontender and nondistended; bowel sounds are positive 4 but somewhat hypoactive Lower extremities right calf is slightly larger than the left calf; Doppler venograms were negative Psychiatric... See above. Calm but still confused. Neurologic. Loss of vision Plan: 05/06/2017. 1. Follow-up echo report when available. 2. Continue present pulmonary treatment. 3. Agree with Lovenox. 4. See orders. 05/07/2017. 1. See today's note above. 2. Would be very helpful to know the source of the patient's bilateral central nervous system embolic disease 05/08/2017. 1. See my note above. 2. CT of the head showed no acute changes 3. CT of abdomen and pelvis showed no new findings. 05/09/2017. 1. See today's note above. 2. INR 3.4 on 10 mg of Coumadin daily will hold today. This is probably not a safe level for the patient 3. Continue antibiotics. Still small residual right lower lungInfiltrate 05/11/2017. 1. See my note for today above. 2. Restart Coumadin 5 mg daily 3. Source of cerebral emboli is unknown. Should be either the heart the proximal aorta. Should we do additional 10 05/13/2017 1. See my note above. 2. Pulmonary status is stable. 3. Altered mental status is improving 4. Daily INR. Coumadin 5 mg daily. 05/16/2017. 1. See my note above. 2. Watch creatinine 3. Probably needs an NG tube feedings a little longer. 4. Hope to stop Levaquin 7 5. Mentation is stable. 05/17/2017. 1. See my note above. 3. We will ask neurology to take another look. 05/18/2017. 1. See today's note above 2. MRI of the brain today 3. INR is increased to 2.4 05/20/2017. 1. See my note above. 2. Possible snf placement. 3. Dr. Mccormick aviation maintenance instructor this weekend if needed. Exam (Progress Note) - Constitutional Vitals: Period Temp Pulse Resp BP Sys/Huang Pulse Ox Last 24 Hr 96.7 F-97.5 F 91-117 15-20 121-165/72-91 92-100 Results - Labs CBC & BMP: 05/20/17 04:43 05/20/17 04:43 Specialty Discharge - Follow Up or Referrals
[2017-05-20] MEDS: ACETAMINOPHEN 325 MG TABLET PO PRN (17:18)
[2017-05-20] MEDS ORDERED: SODIUM CHLORIDE 0.9% 1,000 ML IV ONE (20:27)
[2017-05-20] MEDS: SODIUM CHLORIDE 0.9% 1,000 ML IV SCH (21:54)
[2017-05-21 06:11] LABS: INR 1.4; PT Patient Result 15.4 SECS
[2017-05-21] MEDS: INSULIN REGULAR 100 UNIT/ML SUBCUT SCH ×4 (06:15→17:56)
[2017-05-21 06:47] LABS: Calcium 8.7 MG/DL (8.5-10.1); Magnesium 2.5 MG/DL (1.8-2.4); Osmolality,Calculated 289.3 MOS/KG (273-304); Potassium 4.2 MMOL/L (3.5-5.1)
[2017-05-21] MEDS: ALBUTEROL/IPRATROPIUM 3 ML NEB RESP TX SCH ×2 (07:56→20:35)
[2017-05-21] MEDS: MONTELUKAST 10 MG TABLET PO SCH (09:07)
[2017-05-21] MEDS: PANTOPRAZOLE 40 MG TABLET PO SCH (09:08)
[2017-05-21] MEDS: EZETIMIBE 10 MG TABLET PO SCH (09:08)
--- NOTE | 2017-05-21 09:58 | Hospitalist Progress Note ---
Assessment and Plan (1) Altered mental status Status: Resolved Assessment and plan: Mr. Juarez has history of lung cancer. The patient has sustained stroke consistent with embolic phenomenon. The patient's ultrasound of left upper extremity reveals evidence of thrombo-phlebitis. The patient's INR is 1.4 today. I am going to restart Coumadin and give a dose of Lovenox. Will recheck INR tomorrow. The patient will go to the correction on Tuesday. Current Visit: Yes Hospitalist: Subjective Interval history: Mr. Cash is resting quietly in bed today. He has no new deficits. The patient had tachycardia which improved after volume infusion. The patient does not complain of shortness of breath or angina. Exam - Constitutional Vitals: Period Temp Pulse Resp BP Sys/Huang Pulse Ox Last 24 Hr 97.2 F-98.1 F 72-129 17-22 129-157/64-89 91-99 Exam: Constitutional System: No distress. No tremulousness. Head: Normocephalic, atraumatic. Ears, Nose and Throat System: No evidence of Otitis or Mastoiditis. No epistaxis or discharge Eyes System: Pupils equal, round, and reactive. Extraocular muscles intact. Neck: Supple, without adenopathy, No jugular venous distention. No thyromegaly , neck mass, or prior surgery apparent. Respiratory System: Chest clear to auscultation. Cardiovascular System: Heart with regular rate and rhythm. No murmur. GI System: Abdomen soft, nontender. Normo active bowel sounds present. Musculoskeletal System: limbs with no pedal edema. Tenderness redness and swelling of left forearm Neurological System: No discernable sensory deficit. No aphasia Results - Labs CBC & BMP: 05/20/17 04:43 05/21/17 05:16 Lab Results: I have reviewed the past 24 hour labs Specialty Discharge - Follow Up or Referrals Follow up with: Teo Quick MD [Physician] - 06/20/17 10:30 am (PLEASE BRING ALL MEDS, INSURANCE CARDS, PHOTO I.D. LOCATED ON THE SECOND FLOOR OF THE [facility]ENTER)
[2017-05-21] MEDS ORDERED: ENOXAPARIN 100 MG/ML SYRINGE SUBCUT ONE (10:00)
[2017-05-21] MEDS: METOPROLOL TARTRATE 50 MG TABLET PO SCH ×2 (10:06→20:16)
[2017-05-21] MEDS ORDERED: traMADol 50 MG TABLET PO PRN ×2 (11:27→12:24)
[2017-05-21] MEDS: SODIUM CHLORIDE 0.9% 1,000 ML IV SCH ×2 (13:06→22:58)
[2017-05-21] MEDS: WARFARIN 3 MG TABLET PO SCH (17:56)
[2017-05-22] MEDS: INSULIN REGULAR 100 UNIT/ML SUBCUT SCH ×4 (00:15→18:20)
[2017-05-22] MEDS ORDERED: FUROSEMIDE 40 MG/4 ML VIAL IV ONE (01:25)
[2017-05-22] MEDS ORDERED: SODIUM CHLORIDE 0.9% 1,000 ML IV SCH (01:30)
[2017-05-22 06:29] LABS: Albumin 2.7 G/DL (3.4-5.0); Bilirubin,Total 1.3 MG/DL (0.2-1.0); Calcium 8.7 MG/DL (8.5-10.1); Osmolality,Calculated 288.3 MOS/KG (273-304); Potassium 4.8 MMOL/L (3.5-5.1); Total Protein 6.3 G/DL (6.4-8.3)
[2017-05-22 07:11] LABS: Troponin I Only 8.27 NG/ML (0.00-0.045)
[2017-05-22] MEDS ORDERED: DILTIAZEM 50 MG/10 ML VIAL IV ONE (07:58)
[2017-05-22] MEDS ORDERED: traMADol 50 MG TABLET PO PRN (08:25)
[2017-05-22] MEDS: ALBUTEROL/IPRATROPIUM 3 ML NEB RESP TX SCH ×2 (08:50→19:59)
[2017-05-22] MEDS: DILTIAZEM INJ 100 MG in SODIUM CHLORIDE 0.9% 100 ML IV SCH (08:53)
[2017-05-22] MEDS ORDERED: MORPHINE 2 MG/1 ML SYRINGE IV PRN (09:00)
--- NOTE | 2017-05-22 09:04 | Hospitalist Progress Note ---
Assessment and Plan (1) Altered mental status Status: Resolved Assessment and plan: Mr. Juarez has history of lung cancer. The patient has sustained stroke consistent with embolic phenomenon. The patient's ultrasound of left upper extremity reveals evidence of thrombo-phlebitis. The patient will continue Lovenox at 100 mg twice daily. Cardizem infusion has been started to control the SVT. I coordinated care with Dr. Mcclendon. I gave family conference for 15 minutes. The patient is now DO NOT RESUSCITATE status and we are emphasizing comfort care. Current Visit: Yes Hospitalist: Subjective Interval history: Mr. Juarez had recurrence of SVT yesterday. I attempted to treat this with oral medication but the patient has become unable to take pills. The patient is now seen to have elevated troponin on morning labs consistent with demand ischemia. The patient is now transferred to telemetry monitoring and I am going to initiate Cardizem dose and Cardizem infusion to break the SVT. I discussed the case with Dr. Mcclendon. The patient's overall prognosis is poor on account of hypercoagulable state associated with lung tumor. The patient is not a candidate for coronary catheterization at this time. I discussed the worsening condition with his family at the bedside including his son and brother as well as daughters. The unanimous consensus was that the patient wished to avoid the ventilator or heroic measures. They agreed that DO NOT RESUSCITATE status is appropriate. Exam - Constitutional Vitals: Period Temp Pulse Resp BP Sys/Huang Pulse Ox Last 24 Hr 97.2 F-98.7 F 82-130 18-32 132-161/76-98 91-100 Exam: Constitutional System: No distress. No tremulousness. The patient is lethargic and minimally arousable. He does respond to pain. Head: Normocephalic, atraumatic. Ears, Nose and Throat System: No evidence of Otitis or Mastoiditis. No epistaxis or discharge Eyes System: Pupils equal, round, and reactive. Extraocular muscles intact. Neck: Supple, without adenopathy, No jugular venous distention. No thyromegaly , neck mass, or prior surgery apparent. Respiratory System: Chest clear to auscultation. Cardiovascular System: Heart with regular tachycardia. No murmur. GI System: Abdomen soft, nontender. Normo active bowel sounds present. Musculoskeletal System: limbs with no pedal edema. Tenderness redness and swelling of left forearm Neurological System: No discernable sensory deficit. Results - Labs CBC & BMP: 05/20/17 04:43 05/22/17 05:40 Lab Results: I have reviewed the past 24 hour labs Labs: Troponin is 7. alarm security or surveillance monitor revealed supraventricular tachycardia at 130 bpm. Specialty Discharge - Follow Up or Referrals Follow up with: Teo Quick MD [Physician] - 06/20/17 10:30 am (PLEASE BRING ALL MEDS, INSURANCE CARDS, PHOTO I.D. LOCATED ON THE SECOND FLOOR OF THE [facility])
--- NOTE | 2017-05-22 10:42 | Cardiology Progress Note ---
Assessment and Plan (1) Supraventricular tachycardia by ECG Status: Acute Current Visit: Yes (2) Chronic anticoagulation Status: Acute Current Visit: Yes (3) Cerebrovascular accident, embolic Status: Acute Current Visit: Yes (4) Acute CVA (cerebrovascular accident) Status: Acute Current Visit: Yes (5) Lung cancer Status: Chronic Current Visit: Yes Cardiology - PN: Subj Interval history: This is a 72-year-old man who has a history of of hypercoagulable state and a history related to metastatic lung cancer which is not currently treatable. He had a SVT yesterday. He has had a CVA. He is noncommunicative. His family is present in the room. He is recently been made a DNR because of his poor prognosis. I was asked to see him because of a troponin that is elevated into the 8.0 range. The patient does not have a history of prior heart disease. He has been noted to have a normal ejection fraction by echocardiogram done about a month ago. He is not having problems currently related to orthopnea or PND. He is unable to tell us whether he is having chest discomfort. He is not a candidate for invasive evaluation. I had a long discussion with the family related to treatment plans and evaluation plans and our plan will be for continued comfort and support. He may well need nutritional support with the PEG tube. Exam (Progress Note) - Constitutional Vitals: Period Temp Pulse Resp BP Sys/Huang Pulse Ox Last 24 Hr 97.2 F-98.7 F 82-130 18-32 124-161/76-98 91-100 Exam: Physical examination: General: The patient is awake and unresponsive. He does fix and follow. But does not answer questions. HEENT: Normocephalic, sclera are clear there are no lid xanthelasmas noted. Oral mucosa is free of cyanosis or pallor. Neck: The neck is supple without JVD. Carotid upstrokes are normal volume and amplitude. There is no audible bruit. There is no palpable thyroid. Trachea is midline. Chest: Lungs: The patient is comfortable at rest without intercostal retractions or abdominal breathing. There are no adventitial sounds rales rubs rhonchi or wheezes noted. There are decreased breath sounds at the right base. Cardiovascular: The PMI is nondisplaced. No palpable thrill S3 or S4. There is a regular rate and rhythm with no murmur rub or gallop noted. Dorsalis pedis posterior tibial are 1+ and femoral pulses are 2+ and equal bilaterally. Abdomen: Abdomen is soft and nontender with normal active bowel sounds. There is no palpable mass or organomegaly noted. There is no midline bruit. Extremities exam: There is no cyanosis clubbing or edema. Skin: Skin is warm and dry without ecchymosis or urticaria or skin rash. There are no palpable nodules. Musculoskeletal: There is no kyphosis or scoliosis noted. Result/EKG - Labs CBC & BMP: 05/20/17 04:43 05/22/17 05:40 Labs: Laboratory Results - last 24 hr 05/21/17 05/21/17 05/21/17 12:22 17:39 18:25 Sodium Potassium Chloride Carbon Dioxide Anion Gap BUN Creatinine GFR Calculation BUN/Creatinine Ratio Glucose POC Glucose 169 H 173 H 186 H Calculated Osmolality Calcium Magnesium Total Bilirubin AST ALT Alkaline Phosphatase Total Creatine Kinase Troponin I Total Protein Albumin Globulin Albumin/Globulin Ratio 05/22/17 05/22/17 05/22/17 00:25 03:05 05:40 Sodium Potassium Chloride Carbon Dioxide Anion Gap BUN Creatinine GFR Calculation BUN/Creatinine Ratio Glucose POC Glucose 144 H 159 H Calculated Osmolality Calcium Magnesium Total Bilirubin AST ALT Alkaline Phosphatase Total Creatine Kinase 418 H Troponin I 8.270 H Total Protein Albumin Globulin Albumin/Globulin Ratio 05/22/17 05/22/17 05/22/17 05:40 05:57 Unknown Sodium 141 Potassium 4.8 Chloride 109 H Carbon Dioxide 21 Anion Gap 15.8 H BUN 27 H Creatinine 1.10 GFR Calculation 95 BUN/Creatinine Ratio 24.00 H Glucose 161 H POC Glucose 179 H Calculated Osmolality 288.3 Calcium 8.7 Magnesium 2.5 H Total Bilirubin 1.30 H AST 154 H ALT 163 H Alkaline Phosphatase 110 Total Creatine Kinase Troponin I Total Protein 6.3 L Albumin 2.7 L Globulin 3.6 H Albumin/Globulin Ratio 0.7 L - EKG EKG results: interpreted by me (EKG shows sinus rhythm right bundle branch block ) Specialty Discharge - Follow Up or Referrals Follow up with: Teo Quick MD [Physician] - 06/20/17 10:30 am (PLEASE BRING ALL MEDS, INSURANCE CARDS, PHOTO I.D. LOCATED ON THE SECOND FLOOR OF THE [facility])
--- NOTE | 2017-05-22 10:43 | EKG Report ---
Stationary ECG Study [facility] Test Date: 05/22/2017 10:45:38 AM Pat Name: TOVA BERMAN Department: Room: 290 Gender: M Hearing Specialist: LEA : 1945 Requested by: Lois Mcclendon Order Number: [id number] Kristopher MD: LOIS MCCLENDON Intervals [place] Rate: 121 P: 999 UT: 0 QRS: 64 QRSD: 132 T: -47 QT: 340 QTc: [address] NON-SPECIFIC ST-T ABNORMALITIES RBBBSINUS RHYTHM Electronically Signed On 05-22-17 16:41:33 CDT by LOIS MCCLENDON [id number]
--- NOTE | 2017-05-22 11:14 | XRay Report ---
Portable chest Date: 05/22/2017 Clinical history: Chest congestion Comparison: 05/18/2017 Technique: Portable AP sitting chest Findings: The heart is normal in size. Progressive parenchymal findings in the right mid to lower lung zones with minimally larger small right pleural effusion. The mediastinum and osseous structures are stable in appearance. Impression: Progressive pneumonia in the right mid to lower lung zone with small right pleural effusion. PROCEDURE INTERPRETED AT [facility] DEPARTMENT OF RADIOLOGY Final Report Signed by: Dr. Sanam Maldonado
--- NOTE | 2017-05-22 11:34 | EKG Report ---
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
[2017-05-22] MEDS: METOPROLOL TARTRATE 100 MG TABLET PO SCH ×2 (12:09→21:43)
[2017-05-22] MEDS: FLUoxetine 10 MG CAPSULE PO SCH (12:10)
[2017-05-22] MEDS: predniSONE 20 MG TABLET PO SCH (12:10)
[2017-05-22] MEDS: PANTOPRAZOLE 40 MG TABLET PO SCH (13:43)
[2017-05-22] MEDS: EZETIMIBE 10 MG TABLET PO SCH (13:44)
[2017-05-22] MEDS: DEXTROSE 5% NACL 0.9% 1,000 ML IV SCH ×2 (14:15→21:47)
[2017-05-22] MEDS: ENOXAPARIN 100 MG/ML SYRINGE SUBCUT SCH ×2 (14:16→21:43)
[2017-05-22] MEDS: FAMOTIDINE 20 MG/2 ML VIAL IV SCH ×2 (14:16→21:44)
--- NOTE | 2017-05-22 16:38 | ECHO Report ---
Paul Juarez Exam Date: 05/22/2017 12:03 Referring Physician: Technologist: Age: 72 Ht (in): 71 Wt (lb): 212 Gender: M Exam Location: [facility] [place] Echo Indications: Supraventricular tachycardia, Chronic anticoagulation, Embolic CVA, Metastatic lung CA BP: 152 / 86 HR: 124 Rhythm: Sinus Technical Quality: Technically difficult study IMPRESSIONS Normal left ventricular cavity size. Normal left ventricular wall thickness. Left ventricular ejection fraction is estimated at 55 %. The right ventricle is normal in size and function. The right atrium is normal in size. The left atrium is normal in size. Morphologically normal mitral valve without significant stenosis or prolapse. There is no mitral regurgitation. Morphologically normal aortic valve without significant sclerosis or stenosis. There is no aortic regurgitation. Morphologically normal tricuspid valve. Mild tricuspid valve regurgitation. Tricuspid regurgitation velocities suggest a PAP of 42 mmHg. Morphologically normal pulmonic valve without significant stenosis. There is no pulmonic regurgitation. Normal pericardium without effusion. Normal ascending aorta dimension. MEASUREMENTS (Male / Female) Normal Values 2D ECHO LV Diastolic Diameter PLAX 4.6 cm 4.2 - 5.9 / 3.9 - 5.3 cm LV Systolic Diameter PLAX 3.3 cm LV Fractional Shortening PLAX 29.6 % IVS Diastolic Thickness 0.9 cm 0.6 - 1.0 / 0.6 - 0.9 cm LVPW Diastolic Thickness 0.9 cm 0.6 - 1.0 / 0.6 - 0.9 cm RV Internal Dim ED PLAX 3.7 cm Aortic Root Diameter 2.7 cm LA Systolic Diameter LX 3.1 cm 3.0 - 4.0 / 2.7 - 3.8 cm DOPPLER TR Peak Velocity 285.0 cm/s TR Peak Gradient 32.5 mmHg FINDINGS Left Ventricle Normal left ventricular cavity size. Normal left ventricular wall thickness. Left ventricular ejection fraction is estimated at 55 %. Right Ventricle The right ventricle is normal in size and function. Right Atrium The right atrium is normal in size. Left Atrium The left atrium is normal in size. Mitral Valve Morphologically normal mitral valve without significant stenosis or prolapse. There is no mitral regurgitation. Aortic Valve Morphologically normal aortic valve without significant sclerosis or stenosis. There is no aortic regurgitation. Tricuspid Valve Morphologically normal tricuspid valve. Mild tricuspid valve regurgitation. Tricuspid regurgitation velocities suggest a PAP of 42 mmHg. Pulmonic Valve Morphologically normal pulmonic valve without significant stenosis. There is no pulmonic regurgitation. Pericardium Normal pericardium without effusion. Aorta Normal ascending aorta dimension. Javy Mcclendon MD (Electronically Signed) Final Date: 22 May 2017 16:37
[2017-05-22] MEDS: WARFARIN 3 MG TABLET PO SCH (18:10)
[2017-05-23] MEDS: INSULIN REGULAR 100 UNIT/ML SUBCUT SCH ×4 (00:34→17:46)
[2017-05-23] MEDS: DILTIAZEM INJ 100 MG in SODIUM CHLORIDE 0.9% 100 ML IV SCH ×2 (02:02→12:06)
[2017-05-23 05:14] LABS: INR 1.2; PT Patient Result 12.3 SECS
[2017-05-23 05:29] LABS: Calcium 7.9 MG/DL (8.5-10.1); Magnesium 2.6 MG/DL (1.8-2.4); Osmolality,Calculated 302.6 MOS/KG (273-304)
[2017-05-23 06:19] LABS: Troponin I Only 4.9 NG/ML (0.00-0.045)
[2017-05-23] MEDS: ALBUTEROL/IPRATROPIUM 3 ML NEB RESP TX SCH ×2 (06:49→18:57)
--- NOTE | 2017-05-23 08:12 | EKG Report ---
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
--- NOTE | 2017-05-23 09:41 | Event Note ---
05/23/2017. Events/Dr. Mcclendon's dictation noted. We have been following patient's right upper extremity/forearm for some skin excoriation; this is stable today with no induration, no erythema, no tenderness. The patient's entry level java developer strength is 4 out of 5, there is no drainage, and the lesions have essentially dried. We recommend continued good skin protection and keep the area slightly covered as long as there are any open areas. Elevate as indicated. Will be available if needed.
[2017-05-23] MEDS: FAMOTIDINE 20 MG/2 ML VIAL IV SCH (10:44)
[2017-05-23] MEDS: DEXTROSE 5% NACL 0.9% 1,000 ML IV SCH ×2 (10:45→17:47)
--- NOTE | 2017-05-23 10:55 | Pulmonology Progress Note ---
Pulmonary - PN: Subj Interval history: Mr. Juarez is a 72-year-old -[place] male who we saw in initial pulmonary consultation on 05/05/2017. At that time, our impressions were: 1. Altered mental status which is probably secondary to multiple bilateral cerebral emboli. Source is undetermined but would most likely be from the heart or ascending aorta. 2. Possible right lower lung pneumonia. Bacterial versus radiation injury. 3. COPD. Asthma. 4. 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 5. Past history tobacco abuse. Stop smoking 2002 6. History of asbestos exposure 7. Hyperlipidemia 8. High blood pressure 9. Degenerative joint disease 10. Chronic allergic sinusitis 11. Doppler venogram done 05/15/2017 showed occlusive thrombus in the left brachial vein and a nonocclusive thrombus and a portion of the left basilic vein. 05/06/2017. The patient was seen today along with his brother. Patient is definitely more awake and alert this morning. He is oriented at least to person and place. Carotid ultrasound showed less than 50% stenosis in both ICAs with heterogenous plaque formation. There was antegrade flow in both vertebral arteries. Doppler venograms showed no evidence of deep venous thrombophlebitis within either lower extremity. Echocardiogram was ordered yesterday, but has not yet been done. Chest x-ray today shows a probable right lower lung infiltrate. He is presently being treated with Cleocin and Levaquin. We have asked for sputum, but thus far the patient has not been able to produce a sputum for testing. He has remained afebrile. His white count is normal. Medications have been reviewed. We made no changes today. Labs have been reviewed. No new labs were drawn today. Blood cultures are negative at day 1. 05/07/2017. Patient's pulmonary status is stable today. His mentation is about the same as it was yesterday. Review of microbiology reveals no positive cultures. INR is 1.2. Electrolytes are normal. Creatinine is 0.90 with a BUN of 16. Calcium is 9.1 and magnesium is 2.5. Labs been reviewed. Medicines have been reviewed. Echocardiogram. Ejection fraction 55%. Grade 1/4 diastolic dysfunction. Trace of mitral valve regurgitation with pulmonary artery pressures in the 40-45 % range. Mild to moderate tricuspid regurgitation with slight enlargement of the right atrium with normal size right ventricle. There is no mention of abnormal valves which might be a source of embolic disease.. Based on the distribution of the patient's central nervous system emboli he would think that this would come from either left heart origin of the ascending aorta. Maybe we should consider additional evaluation. 05/08/2017. This patient's mental status was somewhat altered earlier today and a CT scan of the head was done. This showed no acute changes. See report for additional details. Patient also had a CT of the abdomen and pelvis and this showed all lytic lesions in the bone which were present 2013. No other abnormality. Patient had a KUB of the abdomen on 05/07/2017 and it appeared that he had a good bit of fecal retention. Electrolytes normal. Creatinine is 0.9 with a BUN of 12 white count is 12,900 with 79.569.3 lymphs and 8.6 monocytes H& H is 15.0 41.2. Platelets 189,000. Liver function tests are normal. Her previous ammonia level was normal at 16 05/09/2017. This patient was admitted with altered mental status. He had multiple small emboli in the right and left brain. This definitely appeared to be embolic. As expected his carotids were negative. His echocardiogram did not show a definite source of emboli. Emboli most likely would only come from his heart or ascending aorta. We could consider additional evaluation of the aorta and possibly transesophageal echocardiogram. Regardless the patient is going to need to be anticoagulated. He is in a sinus rhythm and is been in a sinus rhythm throughout his hospitalization. He had a follow-up CT of the brain yesterday and this showed nothing new. He remains confused but not agitated. Patient has had adenocarcinoma the superior segment of the right lower lung. This is been treated with radiation. His admit chest x-ray showed right lower lung infiltrate versus a radiation injury. On today's chest x-ray the evolution appears to be secondary to a pneumonia which is not quite resolved. There are no positive cultures. His electrolytes are normal. Glucoses are normal. CBC is normal. INR is prolonged to 3.5. 05/11/2017. Patient was seen with his brother. Patient's a little more alert. He was able to answer a few more questions than before. He has an NG tube down. Swallowing is a new problem for him. Bone scan is noted. Doppler venogram showed no evidence of deep venous thrombophlebitis. Electrolytes are normal. Creatinine is 1.2. BUN is 32. White blood cell count is 14,700 with 86.8 segs. H&H 15.4/43.0. Patient is afebrile times many days. There are no positive cultures. INR is dropped to 2.6. Today I will restart Coumadin 5 mg daily. Previously the patient was on 10 mg daily. We do not know the source of bilateral cerebral nervous system emboli. do we need transesophageal echocardiogram. 05/13/2017. His 72-year-old black male who has adenocarcinoma the lung. He presented with an altered mental status and it appears that he has bilateral central nervous system emboli. See MRI of the brain. His mental status is improved some. He has an infection of the right forearm which is being treated. Patient has underlying COPD with bronchospastic disease which is under good control. Other problems include high blood pressure, hyperlipidemia and degenerative joint disease. Patient is slowly improving. Coumadin was restarted 1 or 2 days ago. Today's INR is 1.7 and I suspect it will lengthen slightly. This is being given for multiple emboli to the central nervous system. Source of emboli is unknown. Patient has a regular sinus rhythm. He is on 5 mg of Coumadin daily. 05/16/2017. Patient was seen along with his daughter who is feeding. She says he is swallowing but he is very slow to eat any cough occasionally when he swallows. Patient is more alert. His daughter says he recognizes family and other people when they come to see him. Patient still has his NG tube in for feeding. His nurse says is been no problem with residual residual. NG tube did have to be replaced last night. I have asked for calorie counting but I suspect will need to continue this for a while. Today's chest x-ray shows cardiomegaly. There is slight increased markings inferior to the right hilum. I do not see any infiltrates. There is no evidence of congestive heart failure. There are no new positive cultures. INR is 1.4. Electrolytes are normal. Creatinine has increased to 1.40 with a BUN of 32. Glucoses are fair. Phosphorus and magnesium are high. White count was 21,482 segs. H&H 15.3/ 43.5 and platelets are 134,000. Patient's on Levaquin. I hope to discontinue this soon. Medicines and labs have been reviewed. 05/17/2017. This patient was seen with his daughter. Patient seems less able to cooperate today. Daughter says that the patient was only able to look to his left on 05/16/2017. This morning when I asked him can he see me. He says he only sees half of me but he cannot describe this additionally. I have asked in neurology come back and take a look and see if we follow had anything else occur. Patient's glucoses are under acceptable control. He has had a recent PSA of 18.4. Dr. Monteiro note from 05/16/2017 is been reviewed. 05/18/2017. Patient was seen along with 1 of his daughters, his brother and Carlos Alberto Parker nurse practitioner. Patient is definitely more active and more alert and oriented today. He says he still cannot see. He is for an MRI of the brain later on today. I have reviewed Dr. Fernando Hoyos neurology note. Patient's on Coumadin 7-1/2 mg daily and today's INR has jumped from 1.5-2.4. White count remains elevated at 23,200. H&H is 15.4/43.2. Platelets are 124, 000. Electrolytes are normal. Creatinine is 1.20 and BUN is 34 magnesium is elevated at 3.0. 05/20/2017. This patient could not lie still for the follow-up MRI of his brain. He appears to have had progression of his multiple small bilateral strokes. He has been on anticoagulation. Appears that he has lost his vision. Electrolytes normal. Creatinine is 1.10 BUN is 35 white count is 22,600 with 81 segs 7 lymphs and 8 monos. Patient's been afebrile for a number of days. INR is 3.6. I think the family is considering nursing homes. Patient has underlying lung cancer. He is stable from a pulmonary standpoint. Dr. Mccormick will be available see the patient this weekend if needed. 05/23/2017. No family is present. Patient is lying fairly flat in bed and breathing comfortably. He is barely able to communicate. Family has made him a DO NOT RESUSCITATE. There are no positive cultures. Labs been reviewed. Medicines have been reviewed. I do not have much to offer. I agree with plans. Exam (Progress Note) - Constitutional Vitals: Period Temp Pulse Resp BP Sys/Huang Pulse Ox Last 24 Hr 96.7 F-98.6 F 95-102 16-20 131-156/71-90 92-99 Exam: Face symmetrical. No swelling of the lips or tongue. Neck. Symmetrical. No meningismus. Lymphatics. No submandibular cervical or supraclavicular adenopathy Chest is wheeze free but there is slight loose large airway congestion Heart no gallop Abdomen is nontender and nondistended; bowel sounds are positive 4 but somewhat hypoactive Lower extremities right calf is slightly larger than the left calf; Doppler venograms were negative Psychiatric... See above. Calm but still confused. Neurologic. Loss of vision Plan: 05/06/2017. 1. Follow-up echo report when available. 2. Continue present pulmonary treatment. 3. Agree with Lovenox. 4. See orders. 05/07/2017. 1. See today's note above. 2. Would be very helpful to know the source of the patient's bilateral central nervous system embolic disease 05/08/2017. 1. See my note above. 2. CT of the head showed no acute changes 3. CT of abdomen and pelvis showed no new findings. 05/09/2017. 1. See today's note above. 2. INR 3.4 on 10 mg of Coumadin daily will hold today. This is probably not a safe level for the patient 3. Continue antibiotics. Still small residual right lower lungInfiltrate 05/11/2017. 1. See my note for today above. 2. Restart Coumadin 5 mg daily 3. Source of cerebral emboli is unknown. Should be either the heart the proximal aorta. Should we do additional 10 05/13/2017 1. See my note above. 2. Pulmonary status is stable. 3. Altered mental status is improving 4. Daily INR. Coumadin 5 mg daily. 05/16/2017. 1. See my note above. 2. Watch creatinine 3. Probably needs an NG tube feedings a little longer. 4. Hope to stop Levaquin 7 5. Mentation is stable. 05/17/2017. 1. See my note above. 3. We will ask neurology to take another look. 05/18/2017. 1. See today's note above 2. MRI of the brain today 3. INR is increased to 2.4 05/20/2017. 1. See my note above. 2. Possible detention placement. 3. Dr. Mccormick in class special education teacher this weekend if needed. 05/23/2017. 1. See today's note above Exam (Progress Note) - Constitutional Vitals: Period Temp Pulse Resp BP Sys/Huang Pulse Ox Last 24 Hr 97.3 F-99.0 F 73-132 16-28 129-158/72-83 90-100 Results - Labs CBC & BMP: 05/20/17 04:43 05/23/17 03:39 Specialty Discharge - Follow Up or Referrals Follow up with: Teo Quick MD [Physician] - 06/20/17 10:30 am (PLEASE BRING ALL MEDS, INSURANCE CARDS, PHOTO I.D. LOCATED ON THE SECOND FLOOR OF THE CANCER CENTER)
--- NOTE | 2017-05-23 12:11 | Gastrointestinal Consult Note ---
Assessment and Plan (1) Failure to thrive Status: Acute Assessment and plan: 05/23-recent embolic event with inability to take in oral nutrition with absent swallowing per ST evaluation. Recommendations for possible PEG tube placement. Currently on Lovenox for thrombophlebitis, recent SVT with Cardizem infusion, history of lung metastases, and elevated troponin levels. Discussion has not been broached with family regarding PEG placement at this time. Continue to monitor at present time. Plan an addendum follow Dr. Rueda. Current Visit: Yes History of Present Illness Chief complaint: Failure to thrive History of present illness: Mr. Juarez is a 72 year old male who was admitted to the hospital on 05/04 with mental status changes. Pt is unable to provide any historical information therefore information is obtained from chart review. No family is present during visit as well. Pt has a history of metastatic lung cancer, HTN, DJD. Pt was brought to the hospital by family after the noted him to have changes from his baseline mental status. On arrival to the hospital, pt was found to have extreme confusion without orientation. Initial CT of head did not show any acute changes at that time. Dr Carr was consulted and found to have multiple infarcts/embolic events without acute hemorrhage. At this time, patient has not returned to his baseline mental status and he is unable to follow any commands. His eyes are open however he does not converse at all. He is noted to have had an onset of SVT. He was noted to be started on Coumadin however this is currently being held with last dose on 05/21. INR is currently 1.2. He is currently on Lovenox as well and was found to have thrombophlebitis to his left upper extremity on ultrasound. He is noted to have also an elevation in his troponin levels at 8.2 on yesterday which is trending down to 4.9 today. Also noted to have elevated LFTs with bilirubin 1.3, AST 154, ALT 163 and a normal alkaline phosphatase. He is noted to have had appendectomy in the past but unaware of other prior abdominal surgeries. He had a repeat ST evaluation today with recommendations for n.p.o. diet due to absent swallowing. GI has been consulted to consider PEG tube placement. Home Medications Medication Instructions Recorded Confirmed Type Ezetimibe [Zetia] 10 mg PO DAILY 05/07/16 05/04/17 History Montelukast Tab [Singulair Tab] 10 mg PO DAILY 05/07/16 05/04/17 History Pantoprazole Tab [Protonix Tab] 40 mg PO DAILY 05/07/16 05/04/17 History traMADol TAB [Ultram] 50 mg PO TID PRN 05/07/16 05/04/17 History Oxybutynin Xl [Ditropan Xl] 10 mg PO DAILY 06/07/16 05/04/17 History Ipratropium/Albuterol Inhaler 1 puff INH QID PRN 06/10/16 05/04/17 History [Combivent Respimat Inhaler] Lactulose Liquid [Chronulac] 2 tablespoon PO TID PRN 06/10/16 05/04/17 History predniSONE TAB [PredniSONE] 20 mg PO DAILY #10 tablet 01/02/17 05/04/17 Rx Umeclidinium Brm/Vilanterol Tr 1 puff INH DAILY 05/04/17 05/04/17 History [Anoro Ellipta] Allergies Allergy/AdvReac Type Severity Reaction Status Date / Time No Known Allergies Allergy Verified 05/04/17 09:35 Medical,Surgical,& Family Hx - Medical History Cardio: History of: Hypertension Neurology: History of: Peripheral Neuropathy No history of: Seizures HEENT: History of: Ear Problem ([place]), Eye Problem (GLASSES), Dental Problems ( FULL SET) Endocrine: History of: Dyslipidemia Respiratory: History of: Asthma, Bronchitis, COPD, Lung Cancer, Respiratory Problems (RT LUNG NODULE, SHORTNESS OF BREATH) Genitourinary: History of: Bladder Problem (URGENCY), Prostate Problems ([place]) Gastrointestinal: History of: GERD, Polyps (REMOVED), GI Problems (CONSTIPATION) Musculoskeletal: History of: Back/Neck Problems (BACK DR TORRES LAST INJECTION 2015.) Other: History of: Cancer (PROSTATE CANCER, RT LUNG POSSIBLE) - Surgical History Abdominal Surgeries: Surgical HX of: Abdominal Surgery, Appendectomy (1976), Colonoscopy Orthopedic Surgeries: Surgical HX of;: Spinal Surgery (BACK SURGERY 1985) - Family History Family History: Reports;: Family Diabetes (SISTER, MOTHER), Family Hypertension (MOTHER, SISTER, BROTHER) - Social History Smoking Status: Unknown if ever smoked Frequency of Alcohol Use: Unknown Type of Drug Use: None, Unknown ROS unobtainable: due to mental status Exam - Constitutional Vitals: Period Temp Pulse Resp BP Sys/Huang Pulse Ox Last 24 Hr 97.3 F-99.0 F 73-132 16-28 129-158/72-83 90-100 General appearance: normal weight, no acute distress - Head Head exam: Present: normal inspection, normocephalic - Eye Eye exam: Present: other (Lids and conjunctive are unremarkable). Absent: scleral icterus - ENT ENT exam: Present: normal exam, normal oropharynx - Neck Neck exam: Present: normal inspection - Respiratory Respiratory exam: Present: clear to auscultation bilaterally. Absent: rales, rhonchi, wheezes - Cardiovascular Cardiovascular exam: Present: regular rate and rhythm. Absent: diastolic murmur , JVD, systolic murmur - GI/Abdominal GI/Abdominal exam: Present: normal bowel sounds, soft. Absent: ascites, distended, mass, organomegaly, tenderness - Extremities Exam Extremities exam: Present: normal inspection, full ROM - Back Exam Back exam: Present: normal inspection - Neurological Exam Neurological exam: Present: alert, altered - Psychiatric Psychiatric exam: Present: other - Skin Skin exam: Present: normal color, warm, dry Results - Labs CBC & BMP: 05/20/17 04:43 05/23/17 03:39 Lab Results: I have reviewed the past 24 hour labs Specialty Discharge - Follow Up or Referrals Follow up with: Teo Qucik MD [Physician] - 06/20/17 10:30 am (PLEASE BRING ALL MEDS, INSURANCE CARDS, PHOTO I.D. LOCATED ON THE SECOND FLOOR OF THE [facility]ER CENTER)
[2017-05-23] MEDS: DILTIAZEM 60 MG TABLET PO SCH ×2 (12:49→17:46)
[2017-05-23] MEDS: METOPROLOL TARTRATE 100 MG TABLET PO SCH (12:50)
[2017-05-23] MEDS: FLUoxetine 10 MG CAPSULE PO SCH (12:50)
[2017-05-23] MEDS: predniSONE 20 MG TABLET PO SCH (12:50)
[2017-05-23] MEDS: ENOXAPARIN 100 MG/ML SYRINGE SUBCUT SCH (12:51)
--- NOTE | 2017-05-23 13:35 | Hospitalist Progress Note ---
Assessment and Plan (1) Cerebrovascular accident, embolic Status: Acute Assessment and plan: MRI of brain on May 04, 2017 shows multiple infarcts in the right frontal, parietal, and cerebellum and strokes on the left parietal. Patient is currently on Coumadin and Lovenox but is subtherapeutic. Patient was lethargic today and would not follow commands. This is my first time seeing him. He is spontaneously moving all extremities but will not have anything to command. Son said patient has made a decision that he never wanted a PEG tube. We have made him n.p.o. and place an NG. I will start tube feeds today. Current Visit: Yes (2) Altered mental status Status: Resolved Assessment and plan: Due to multiple infarcts. I will get a head CT today just to ensure he does not have any cerebral hemorrhage Current Visit: Yes (3) COPD (chronic obstructive pulmonary disease) Status: Chronic Current Visit: Yes (4) Lung cancer Status: Chronic Assessment and plan: adenocarcinoma by biopsy on 05/11/16 Current Visit: Yes (5) Right lower lobe pneumonia Status: Acute Assessment and plan: Chest x-ray from yesterday shows developing right middle and lower lobe pneumonia most likely secondary to aspiration. I will recheck his CBC in the morning. cont duonebs and will start zosyn Current Visit: Yes (6) SVT (supraventricular tachycardia) Status: Acute Assessment and plan: Patient is still on a tilt drip. Patient already on max dose of Lopressor we will add p.o. diltiazem to wean him off drip. Current Visit: Yes Hospitalist: Subjective Interval history: Patient is having a conversation with patient's son who is his decision maker. Conversation was for 15 minutes. Patient requested never to have a peg tube. Patient had run of svt. I am giving him oral medications to wean off drip. Currently SR. patient remains subtherapeutic on the Coumadin due to the vitamin K given on May 19. Patient accepted to [facility] Exam - Constitutional Vitals: Period Temp Pulse Resp BP Sys/Huang Pulse Ox Last 24 Hr 97.3 F-99.0 F 73-132 16-28 133-158/72-83 90-100 Exam: Heart Rate-[tachy] Lungs-[clear but diminished ] GI-[+bs soft, NT] Ext-[no edema] Neuro lethargic looking to left, spontaneously moves all extremities but nothing to command psych [agitated mood and affect] General [no acute distress] Results - Labs CBC & BMP: 05/20/17 04:43 05/23/17 03:39 Lab Results: I have reviewed the past 24 hour labs - Diagnostic Findings Procedure: MRI: report reviewed by me (bilateral showering of strokes ) Specialty Discharge - Follow Up or Referrals Follow up with: Teo Quick MD [Physician] - 06/20/17 10:30 am (PLEASE BRING ALL MEDS, INSURANCE CARDS, PHOTO I.D. LOCATED ON THE SECOND FLOOR OF THE [facility]ER CENTER)
[2017-05-23] MEDS ORDERED: WARFARIN 3 MG TABLET PO SCH (13:46)
[2017-05-23] MEDS ORDERED: APIXABAN 5 MG TABLET PO SCH (14:30)
--- NOTE | 2017-05-23 14:42 | CT Report ---
History: Intracranial hemorrhage Date: 05/23/2017 Study: CT head without contrast Comparison exam: Multiple studies, including the most recent CT head of May 08, 2017 and most recent MRI head May 12, [address] sections were obtained through the head without IV contrast. This CT exam was performed using one or more the following dose reduction techniques: Automated exposure control, adjustment of the MA and/or KV according to patient size, or use of iterative reconstruction technique. Numerous areas of wedge-shaped decreased density compatible with recent interval ischemia are now noted in the left parietal, right occipital, and left frontal regions, not present on the previous brain imaging studies. Previous areas of ischemia are noted in the right frontal lobe and parietal lobe as well as the right cerebellar hemisphere as on the comparison MRI. There are areas of hyperdense acute hemorrhage on today's exam associated with some of the ischemic regions, including a 2.8 cm parenchymal hemorrhage in the posterior left frontal region superiorly, 1.5 cm hemorrhage inferior left frontal region, 12 mm hemorrhage left parietal area, 13 mm hemorrhage right occipital region. There is no midline shift or hydrocephalus. There is no extra-axial hematoma. There is no acute abnormality of the calvarium. There is mild distal carotid artery calcification. Preliminary report was given to Dr. William at 2:40 PM. Critical test result Impression: Since the MRI of May 12, 2017, multiple regions of interval ischemia have developed, including right occipital, left frontal, and left parietal areas of ischemia. Since multiple vascular territories are involved, consider embolic phenomena. There is acute hemorrhagic transformation of some of the areas of ischemia in the left frontoparietal and right occipital regions. There is no midline shift or hydrocephalus. PROCEDURE INTERPRETED AT [facility] [place] DEPARTMENT OF RADIOLOGY Final Report Signed by: Dr. Niurka Rueda
[2017-05-23] MEDS: PIPERACILLIN/TAZOBACTAM 3,375 MG in SODIUM CHLORIDE 0.9% 100 ML IV SCH (15:53)
--- NOTE | 2017-05-23 16:40 | Neurology Progress Note ---
Neurology - PN : Subjective Interval history: Patient condition has progressed. Repeat CAT scan report noted. He has bilateral hemorrhages. He was on Coumadin and INR jumped up to 7.7 on 2016. He is quite restless and sort of nonresponsive. His eyes are open and he is moving all 4 extremities. Exam (Progress Note) - Constitutional Vitals: Period Temp Pulse Resp BP Sys/Huang Pulse Ox Last 24 Hr 97.3 F-99.0 F 73-132 16-28 136-158/72-83 90-100 Exam: GENERAL: Patient is in no acute distress. NECK: Neck is supple. There is no JVD. No carotid bruits present. No thyroid masses. CVS: First and second heart sounds are normal. There is no S3 present. Regular rate and rhythm. RESPIRATORY: Lungs are clear to auscultation without any rales or rhonchi. ABDOMEN: Soft and non-tender. Bowel sounds are present. There is no hepatosplenomegaly. EXT: There is no palpable edema. Peripheral pulses are present. Skin: No rashes Central Nervous system: General: He is awake but not responding. Speech: None Comprehension: None Facial expressions: Normal Cranial Nerves: Pupils are equally reactive to light. Doll's head eye movements are positive. No facial asymmetry is seen. Motor: Bulk and Tone is normal. Strength cannot be assessed. He is moving all 4 extremities Sensory: Unreliable Reflexes: 1+ and symmetrical Cerebellar function: Cannot be assessed Toes: Equivocal Gait: Not tested Results - Labs CBC & BMP: 05/20/17 04:43 05/23/17 03:39 Assessment and Plan (1) Altered mental status Status: Resolved Assessment and plan: This has improved Current Visit: Yes (2) Acute CVA (cerebrovascular accident) Status: Acute Assessment and plan: He does have hemorrhagic transformation now. Hold off to any further anticoagulation or antiplatelet agents. Patient is DNR and family wants comfort measures only He will probably go to hospice Current Visit: Yes Specialty Discharge - Follow Up or Referrals Follow up with: Teo Quick MD [Physician] - 06/20/17 10:30 am (PLEASE BRING ALL MEDS, INSURANCE CARDS, PHOTO I.D. LOCATED ON THE SECOND FLOOR OF THE [facility]ER CENTER)
--- NOTE | 2017-05-23 17:02 | Cardiology Progress Note ---
I, Astrid Temple RN, am scribing for, and in the presence of, Odell Chan MD 16:57. Assessment and Plan (1) Acute CVA (cerebrovascular accident) Status: Acute Assessment and plan: The patient has a hypercoagulable state and has subsequently had multiple acute strokes. He has had hemorrhagic transformation of at least some of them as well. His prognosis is grim. Current Visit: Yes (2) Lung cancer Status: Chronic Assessment and plan: The patient appears to have a metastatic lung cancer and has a poor prognosis. Current Visit: Yes (3) Bone metastases Status: Acute Current Visit: Yes (4) Elevated troponin Status: Acute Assessment and plan: Patient has a history of mild elevation of cardiac enzymes with normal left ventricular function. Given all of his medical problems he is not a candidate for aggressive/invasive management. I am going to increase his medication to try to improve his heart rate and blood pressure control. Current Visit: Yes (5) Chronic anticoagulation Status: Acute Current Visit: Yes (6) COPD (chronic obstructive pulmonary disease) Status: Chronic Current Visit: Yes (7) Altered mental status Status: Resolved Current Visit: Yes Cardiology - PN: Subj Interval history: SUMMARY: Mr. Juarez is a 72-year-old male with a history of hypercoagulable state and metastatic lung cancer which is not currently treatable. He also has a history of CVA, with recent hemorrhagic transformation and he is noncommunicative. He is a DNR because of his poor prognosis. Cardiology was consulted to see him May 22 because of elevated troponin of 8.270. He has no known history of coronary disease. Echocardiogram done this admission showed ejection fraction 55%. Dr. Mcclendon thought he was not a candidate for invasive evaluation and the family was made aware of this and agreed. May 23, 2017: Mr. Juarez is seen today resting in bed on the telemetry unit. No family is present. He does not communicate but he appears comfortable. He does not answer questions. Troponin today is down to 4.9. EKG this morning with sinus rhythm. Current Medications Acetaminophen (Tylenol Tab) 650 mg PO Q4H PRN PRN Reason: Fever, Headache, Mild Pain Last Admin: 05/20/17 17:18 Dose: 650 mg Albuterol/Ipratropium (Duoneb) 3 ml RESP TX RT Q4H PRN PRN Reason: Shortness of Breath/Wheezing Last Admin: 05/21/17 23:35 Dose: 3 ml Albuterol/Ipratropium (Duoneb) 3 ml RESP TX RT Q12H [facility] Last Admin: 05/23/17 06:49 Dose: 3 ml Dextrose/Water (D50) 25 gm IV PRN PRN PRN Reason: Hypoglycemia with IV access Diltiazem HCl (Cardizem Tab) 60 mg PO TID [facility] Last Admin: 05/23/17 12:49 Dose: 60 mg Famotidine (Pepcid Inj) 20 mg IV Q12H [facility] Last Admin: 05/23/17 10:44 Dose: 20 mg Fluoxetine HCl (Prozac) 10 mg PO DAILY [facility] Last Admin: 05/23/17 12:50 Dose: 10 mg Glucagon () 1 mg IM PRN PRN PRN Reason: Hypoglycemia w/o IV access Diltiazem HCl 100 mg/ Sodium (Chloride) 100 mls @ 5 mls/hr IV TITRATE YAAKOV; 5 MG /HR PRN Reason: Protocol Last Titration: 05/23/17 15:54 Dose: 5 mg/hr, 5 mls/hr Dextrose/Sodium Chloride (D5 Ns) 1,000 mls @ 100 mls/hr IV .Q10H [facility] Last Admin: 05/23/17 10:45 Dose: 100 mls/hr Piperacillin Sod/Tazobactam (Sod 3,375 mg/ Sodium Chloride) 100 mls @ 25 mls/ hr IV Q8H [facility] Last Admin: 05/23/17 15:53 Dose: 25 mls/hr Insulin Human Regular (Humulin R) 0 unit SUBCUT Q6HR YAAKOV PRN Reason: Protocol Last Admin: 05/23/17 12:50 Dose: 8 unit Metoprolol Tartrate (Lopressor Tab) 100 mg PO BID [facility] Last Admin: 05/23/17 12:50 Dose: 100 mg Morphine Sulfate () 2 mg IV Q3H PRN PRN Reason: Pain Severe (8-10) Ondansetron HCl (Zofran Inj) 4 mg IV Q4H PRN PRN Reason: Nausea Petrolatum (Aquaphor) 1 applic TOP PRN PRN PRN Reason: Dry Skin Last Admin: 05/11/17 12:43 Dose: 1 applic Prednisone () 20 mg PO DAILY [facility] Last Admin: 05/23/17 12:50 Dose: 20 mg Simethicone (Mylicon Chew Tab) 80 mg PO TID PRN PRN Reason: Gas Last Admin: 05/07/17 21:10 Dose: 80 mg Tramadol HCl (Ultram) 50 mg PO Q6H PRN PRN Reason: Pain Last Admin: 05/21/17 13:01 Dose: 50 mg Exam (Progress Note) - Constitutional Vitals: Period Temp Pulse Resp BP Sys/Huang Pulse Ox Last 24 Hr 97.3 F-99.0 F 73-132 16-28 129-158/72-83 90-100 General appearance: normal weight, other (Ill-appearing) - Head Head exam: Absent: abrasion, hematoma - Eye Eye exam: Absent: periorbital swelling, laceration to eyelids - Respiratory Respiratory exam: Present: clear to auscultation bilaterally, decreased breath sounds. Absent: accessory muscle use, chest wall tenderness - Cardiovascular Cardiovascular exam: Present: regular rate and rhythm, tachycardia - GI/Abdominal GI/Abdominal exam: Present: normal bowel sounds, soft. Absent: distended - Extremities Exam Extremities exam: Absent: edema - Neurological Exam Neurological exam: Present: other (Noncommunicative) - Skin Skin exam: Present: warm, dry Result/EKG - Labs CBC & BMP: 05/20/17 04:43 05/23/17 03:39 Lab Results: I have reviewed the past 24 hour labs Labs: Laboratory Results - last 24 hr 05/22/17 05/23/17 05/23/17 18:17 00:28 03:39 INR PT Patient/Control Mix Sodium Potassium Chloride Carbon Dioxide Anion Gap BUN Creatinine GFR Calculation BUN/Creatinine Ratio Glucose POC Glucose 181 H 247 H Calculated Osmolality Calcium Magnesium Total Creatine Kinase 210 D Troponin I 4.900 H D 05/23/17 05/23/17 05/23/17 03:39 03:39 06:01 INR 1.2 PT Patient/Control Mix 12.3 D Sodium 146 H Potassium 4.0 Chloride 114 H Carbon Dioxide 22 Anion Gap 14.0 BUN 32 H Creatinine 1.20 GFR Calculation 86 BUN/Creatinine Ratio 26.00 H Glucose 209 H POC Glucose 214 H Calculated Osmolality 302.6 Calcium 7.9 L Magnesium 2.6 H Total Creatine Kinase Troponin I 05/23/17 07:43 INR PT Patient/Control Mix Sodium Potassium Chloride Carbon Dioxide Anion Gap BUN Creatinine GFR Calculation BUN/Creatinine Ratio Glucose POC Glucose 232 H Calculated Osmolality Calcium Magnesium Total Creatine Kinase Troponin I - EKG EKG results: interpreted by me EKG shows: tachycardia, sinus rhythm Specialty Discharge - Follow Up or Referrals Follow up with: Teo Quick MD [Physician] - 06/20/17 10:30 am (PLEASE BRING ALL MEDS, INSURANCE CARDS, PHOTO I.D. LOCATED ON THE SECOND FLOOR OF THE [facility]) I, Odell Chan MD, personally performed the services described in this documentation, ascribed by Astrid Temple RN in my presence, and it is both accurate and complete 657 .
[2017-05-23] MEDS: SKIN HEALING OINT (AQUAPHOR) 50 GM TUBE TOP PRN (17:46)
[2017-05-23 18:21] LABS: Apearance,Urine CLEAR (Clear); Bilirubin,Urine Negative (Negative); Blood, Urine Negative (Negative); Glucose,Urine (UA) >=500 mg/dL (Negative); Ketones,Urine 5 mg/dL (Negative); Mucus,Urine Occasional /LPF (Occasional); Nitrite,Urine Negative (Negative); Protein,Urine 30 MG/DL; RBC,Urine <1 /HPF (0-4); Urine Color Yellow (Yellow); Urine Specific Gravity 1.018 (1.001-1.035); Urine Urobilinogen < 2.0 EU/DL (0.2-1.0); WBC,Urine 1 /HPF (0-6)
--- NOTE | 2017-05-23 20:13 | Event Note ---
This is addendum to gastroenterology consult note dictated today by Mae YEPEZ. I was unable to access her note to make this addendum. Patient seen and examined. Agree with findings from her note. Asked to evaluate for possible PEG tube placement due to inability to eat. Patient has multiple comorbidities including metastatic lung cancer. He also had significant troponin elevation which is trending downward. His prognosis appears poor with patient having labored respirations on my exam this evening. At this point, I would recommend continue feeding him via nasogastric tube. Sedation for EGD/ PEG tube placement would carry significant risk for him and PEG tube of unlikely benefit. We could reassess this if he had clinical improvement. I will check back tomorrow.
[2017-05-24] MEDS: DILTIAZEM 60 MG TABLET PO SCH ×2 (00:24→09:45)
[2017-05-24] MEDS: FAMOTIDINE 20 MG/2 ML VIAL IV SCH ×2 (00:25→09:40)
[2017-05-24] MEDS: METOPROLOL TARTRATE 100 MG TABLET PO SCH ×2 (00:25→09:45)
[2017-05-24] MEDS: PIPERACILLIN/TAZOBACTAM 3,375 MG in SODIUM CHLORIDE 0.9% 100 ML IV SCH ×2 (00:32→10:15)
[2017-05-24] MEDS: INSULIN REGULAR 100 UNIT/ML SUBCUT SCH ×3 (02:25→12:27)
[2017-05-24] MEDS: DILTIAZEM INJ 100 MG in SODIUM CHLORIDE 0.9% 100 ML IV SCH ×2 (02:36→10:15)
[2017-05-24 05:22] LABS: Basophils % 0.1 % (0.0-0.8); Eosinophils # 0.1 10*3/uL (0.0-0.87); Eosinophils % 0.3 % (0.00-10.9); Hematocrit 38.2 VOL% (42.0-52.0); Immature Granulocytes % 1.1 %; Immature Granulocytes Absolute 0.25 #; Lymphocytes # 1.3 10*3/uL (1.4-4.0); Lymphocytes % 5.9 % (21.2-54.2); Mean Corpuscular HGB Conc 35.3 GM/DL (32-36); Mean Corpuscular Hemoglobin 27 PG (27-34); Mean Corpuscular Volume 76.1 FL (87-102); Monocytes # 1.6 10*3/uL (0.11-0.8); Monocytes % 7.1 % (1.7-12.7); Neutrophils # 18.9 10*3/uL (1.4-7.4); Neutrophils % 85.5 % (38.7-73.9); Red Blood Count 5.02 MC/CUMM (3.8-5.5); Red Cell Distribution Width 15.8 % (9.3-17.3); White Blood Count 22.1 T/CUMM (4-12)
[2017-05-24 05:32] LABS: Hemoglobin 13.5 GM/DL (14.0-18.0); Platelet Count 70 T/CUMM (130-400)
[2017-05-24 05:56] LABS: Calcium 7.7 MG/DL (8.5-10.1); Magnesium 2.7 MG/DL (1.8-2.4); Osmolality,Calculated 305.1 MOS/KG (273-304); Phosphorous 2.2 MG/DL (2.5-4.9); Potassium 3.9 MMOL/L (3.5-5.1); Prealbumin 13.9 MG/DL (20-40)
[2017-05-24 05:57] LABS: Lymphocytes 5 % (20-55); Segmented Neutrophils 89 % (50-85); Total Cells Counted 100
[2017-05-24 05:58] LABS: Hypochromasia 1+; Microcytosis Slight; Platelet Estimate Decreased
[2017-05-24] MEDS: ALBUTEROL/IPRATROPIUM 3 ML NEB RESP TX SCH (06:45)
[2017-05-24] MEDS: DEXTROSE 5% NACL 0.9% 1,000 ML IV SCH ×2 (06:55→13:17)
--- NOTE | 2017-05-24 07:16 | EKG Report ---
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
[2017-05-24] MEDS: predniSONE 20 MG TABLET PO SCH (09:45)
[2017-05-24] MEDS: FLUoxetine 10 MG CAPSULE PO SCH (09:45)
--- NOTE | 2017-05-24 10:01 | Gastrointestinal Progress Note ---
Assessment and Plan (1) Failure to thrive Status: Acute Assessment and plan: 05/24-NO changes in current states. Family has refused PEG placement at this time. Will sign off and reconsult in the event pt stabilizes and family decides to proceed with PEG. Plan and addendum to follow by Dr Rueda. 05/23-recent embolic event with inability to take in oral nutrition with absent swallowing per ST evaluation. Recommendations for possible PEG tube placement. Currently on Lovenox for thrombophlebitis, recent SVT with Cardizem infusion, history of lung metastases, and elevated troponin levels. Discussion has not been broached with family regarding PEG placement at this time. Continue to monitor at present time. Plan an addendum follow Dr. Rueda. Current Visit: Yes Gastroenterology - PN: Subj Interval history: CC: Failure to thrive Pt is seen, awake, but doesnt follow commands. He is tolerating his tube feedings well at this time. Denies any abdominal pain with palpation. Nursing staff at bedside and states that the family has refused a PEG tube at this time. Abdomen is soft, nontender. ROS: NO acute distress noted Exam (Progress Note) - Constitutional Vitals: Period Temp Pulse Resp BP Sys/Huang Pulse Ox Last 24 Hr 97.8 F-98.7 F 94-114 17-28 122-152/66-82 87-100 - Other Additional findings: General appearance: normal weight, no acute distress - Head Head exam: Present: normal inspection, normocephalic - Eye Eye exam: Present: other (Lids and conjunctive are unremarkable). Absent: scleral icterus - ENT ENT exam: Present: normal exam, normal oropharynx - Neck Neck exam: Present: normal inspection - Respiratory Respiratory exam: Present: clear to auscultation bilaterally. Absent: rales, rhonchi, wheezes - Cardiovascular Cardiovascular exam: Present: regular rate and rhythm. Absent: diastolic murmur , JVD, systolic murmur - GI/Abdominal GI/Abdominal exam: Present: normal bowel sounds, soft. Absent: ascites, distended, mass, organomegaly, tenderness - Extremities Exam Extremities exam: Present: normal inspection, full ROM - Back Exam Back exam: Present: normal inspection - Neurological Exam Neurological exam: Present: alert, altered - Psychiatric Psychiatric exam: Present: other - Skin Skin exam: Present: normal color, warm, dry Results - Labs CBC & BMP: 05/24/17 04:40 05/24/17 04:40 Lab Results: I have reviewed the past 24 hour labs Specialty Discharge - Follow Up or Referrals Follow up with: Teo Quick MD [Physician] - 06/20/17 10:30 am (PLEASE BRING ALL MEDS, INSURANCE CARDS, PHOTO I.D. LOCATED ON THE SECOND FLOOR OF THE [facility])
[2017-05-24] MEDS ORDERED: CLINDAMYCIN 300 MG CAPSULE PO SCH (14:00)
[2017-05-24] MEDS ORDERED: LORazepam 2 MG/1 ML VIAL IV PRN (14:12)
--- NOTE | 2017-05-24 14:19 | Hospitalist Progress Note ---
Assessment and Plan (1) Hospice care Status: Acute Assessment and plan: total time spent 45 min, fentanyl patch 25, discontinue the NG, prn ativan and morphine Current Visit: Yes (2) Cerebrovascular accident, embolic Status: Acute Assessment and plan: with hemorrhagic transformation. All blood thinners on hold Current Visit: Yes (3) Altered mental status Status: Chronic Current Visit: Yes (4) Right lower lobe pneumonia Status: Acute Assessment and plan: discontinue abx Current Visit: Yes (5) SVT (supraventricular tachycardia) Status: Acute Assessment and plan: family wants the dilt drip removed Current Visit: Yes Hospitalist: Subjective Interval history: I have spoke with 2 sisters and one brother today. They have made the decision to pursue comfort end-of-life care. They had indicated that they did talk to Dr. Swain about that before he went off. Patient was made a DNR in the computer not comfort care. We will remove the NG and turn off the diltiazem drip. We will place a fentanyl patch on him for comfort and use morphine and Ativan as needed as needed. He is to be offered food for comfort end-of-life care but family understands he may aspirate. Exam - Constitutional Vitals: Period Temp Pulse Resp BP Sys/Huang Pulse Ox Last 24 Hr 97.4 F-98.7 F 89-111 17-28 122-151/66-77 87-100 Exam: Heart Rate-[tachy] Lungs-[clear but diminished ] GI-[+bs soft, NT] Ext-[no edema] Neuro moving extremities to command this morning, eyes still deviated to the left, spont movement of all extremities psych [agitated mood and affect] General [no acute distress] Results - Labs CBC & BMP: 05/24/17 04:40 05/24/17 04:40 Lab Results: I have reviewed the past 24 hour labs Specialty Discharge - Follow Up or Referrals Follow up with: Teo Quick MD [Physician] - 06/20/17 10:30 am (PLEASE BRING ALL MEDS, INSURANCE CARDS, PHOTO I.D. LOCATED ON THE SECOND FLOOR OF THE [facility])
[2017-05-24] MEDS ORDERED: fentaNYL 25 MCG/HR PATCH TRANSDERM SCH (14:30)
--- NOTE | 2017-05-24 16:13 | Cardiology Progress Note ---
Maverick Avila April, RN, am scribing for, and in the presence of, Bud Ojeda MD 16:13. Assessment and Plan (1) Acute CVA (cerebrovascular accident) Status: Acute Assessment and plan: The patient has a hypercoagulable state and has subsequently had multiple acute strokes. He has had hemorrhagic transformation of at least some of them as well. His prognosis is grim. 1. Mr. Juarez is now comfort measures only; is not seem to be any pain but is a bit restless and does not follow commands. 2. Sign off, little to add from a cardiac standpoint. Current Visit: Yes (2) Bone metastases Status: Acute Current Visit: Yes (3) Chronic anticoagulation Status: Acute Current Visit: Yes (4) Elevated troponin Status: Acute Assessment and plan: Patient has a history of mild elevation of cardiac enzymes with normal left ventricular function. Given all of his medical problems he is not a candidate for aggressive/invasive management. Current Visit: Yes (5) COPD (chronic obstructive pulmonary disease) Status: Chronic Current Visit: Yes (6) Lung cancer Status: Chronic Assessment and plan: The patient appears to have a metastatic lung cancer and has a poor prognosis. Current Visit: Yes (7) Altered mental status Status: Chronic Current Visit: Yes Cardiology - PN: Subj Interval history: SUMMARY: Mr. Juarez is a 72-year-old male with a history of hypercoagulable state and metastatic lung cancer which is not currently treatable. He also has a history of CVA, with recent hemorrhagic transformation and he is noncommunicative. He is a DNR because of his poor prognosis. Cardiology was consulted to see him May 22 because of elevated troponin of 8.270. He has no known history of coronary disease. Echocardiogram done this admission showed ejection fraction 55%. Dr. Mcclendon thought he was not a candidate for invasive evaluation and the family was made aware of this and agreed. May 23, 2017: Mr. Juarez is seen today resting in bed on the telemetry unit. No family is present. He does not communicate but he appears comfortable. He does not answer questions. Troponin today is down to 4.9. EKG this morning with sinus rhythm. May 24, 2017: Mr. Juarez is resting in bed. He does not communicate. No family is present at bedside. He appears comfortable. He is occasionally arousable and moves all extremities. EKG this morning showed sinus tachycardia with heart rate of 106. Blood pressures have been stable. Exam (Progress Note) - Constitutional Vitals: Period Temp Pulse Resp BP Sys/Huang Pulse Ox Last 24 Hr 97.8 F-98.7 F 94-114 17-28 122-152/66-82 87-100 Exam: General appearance: normal weight, other (Ill-appearing) - Head Head exam: Absent: abrasion, hematoma - Eye Eye exam: Absent: periorbital swelling, laceration to eyelids - Respiratory Respiratory exam: Present: clear to auscultation bilaterally, decreased breath sounds. Absent: accessory muscle use, chest wall tenderness - Cardiovascular Cardiovascular exam: Present: regular rate and rhythm, tachycardia - GI/Abdominal GI/Abdominal exam: Present: normal bowel sounds, soft. Absent: distended - Extremities Exam Extremities exam: Absent: edema - Neurological Exam Neurological exam: Present: other (Noncommunicative) - Skin Skin exam: Present: warm, dry Result/EKG - Labs CBC & BMP: 05/24/17 04:40 05/24/17 04:40 Lab Results: I have reviewed the past 24 hour labs Labs: Laboratory Results - last 24 hr 05/23/17 05/23/17 05/23/17 12:18 16:20 17:53 WBC RBC Hgb Hct MCV MCH MCHC RDW Plt Count Neut % (Auto) Lymph % (Auto) [place] % (Auto) Eos % (Auto) Baso % (Auto) Neut # (Auto) Lymph # (Auto) [place] # (Auto) Eos # (Auto) Baso # (Auto) Total Counted Immature Gran % Nucleated RBC % Immature Gran # Segmented Neutrophils Lymphocytes Monocytes Nucleated RBCs # Platelet Estimate Hypochromasia Microcytosis Morphology Comment Sodium Potassium Chloride Carbon Dioxide Anion Gap BUN Creatinine GFR Calculation BUN/Creatinine Ratio Glucose POC Glucose 214 H 189 H Calculated Osmolality Calcium Phosphorus Magnesium Prealbumin Urine Color Yellow Urine Appearance Clear Urine pH 6.0 Ur Specific [place] 1.018 Urine Protein 30 Urine Glucose (UA) >=500 Urine Ketones 5 Urine Blood Negative Urine Nitrate Negative Urine Bilirubin Negative Urine Urobilinogen < 2.0 H Urine Leukocytes Negative Urine RBC <1 Urine WBC 1 Urine Mucus Occasional Ur Culture Indicated? Not indicated 05/24/17 05/24/17 05/24/17 04:40 04:40 06:55 WBC 22.1 H RBC 5.02 Hgb 13.5 L D Hct 38.2 L MCV 76.1 L MCH 27 MCHC 35.3 RDW 15.8 Plt Count 70 L D Neut % (Auto) 85.5 H Lymph % (Auto) 5.9 L [place] % (Auto) 7.1 Eos % (Auto) 0.3 Baso % (Auto) 0.1 Neut # (Auto) 18.9 H Lymph # (Auto) 1.3 L [place] # (Auto) 1.6 H Eos # (Auto) 0.1 Baso # (Auto) 0.0 Total Counted 100 Immature Gran % 1.1 Nucleated RBC % 0.0 Immature Gran # 0.25 Segmented Neutrophils 89 H Lymphocytes 5 L Monocytes 6 Nucleated RBCs # 0.00 Platelet Estimate Decreased Hypochromasia 1+ Microcytosis Slight Morphology Comment Sodium 149 H Potassium 3.9 Chloride 119 H Carbon Dioxide 23 Anion Gap 10.9 BUN 30 H Creatinine 1.20 GFR Calculation 82 BUN/Creatinine Ratio 25.00 H Glucose 179 H POC Glucose 209 H Calculated Osmolality 305.1 H Calcium 7.7 L Phosphorus 2.2 L Magnesium 2.7 H Prealbumin 13.9 L Urine Color Urine Appearance Urine pH Ur Specific [place] Urine Protein Urine Glucose (UA) Urine Ketones Urine Blood Urine Nitrate Urine Bilirubin Urine Urobilinogen Urine Leukocytes Urine RBC Urine WBC Urine Mucus Ur Culture Indicated? - EKG EKG results: interpreted by me EKG shows: tachycardia, sinus rhythm Specialty Discharge - Follow Up or Referrals Follow up with: Teo Quick MD [Physician] - 06/20/17 10:30 am (PLEASE BRING ALL MEDS, INSURANCE CARDS, PHOTO I.D. LOCATED ON THE SECOND FLOOR OF THE [facility]) I, Bud Ojeda MD, personally performed the services described in this documentation, ascribed by Astrid Temple RN in my presence, and it is both accurate and complete 613 .
[2017-05-24] MEDS: MORPHINE 2 MG/1 ML SYRINGE IV PRN (22:57)
--- NOTE | 2017-05-25 07:39 | EKG Report ---
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
[2017-05-25] MEDS: MORPHINE 2 MG/1 ML SYRINGE IV PRN (08:26)
--- NOTE | 2017-05-25 10:39 | Discharge Summary ---
Hospital Course - Hospital Course Hospital Course: This is a chronically ill 72-year-old male that presented to the ED at [facility] via EMS this morning for the evaluation of altered mental status. Patient has a very complex medical history significant for: Hypertension, peripheral neuropathy, dyslipidemia, chronic obstructive pulmonary disease, asthma, bronchitis, carcinoma of the lung, carcinoma of the prostate, GERD, chronic constipation, urinary frequency. She has a surgical history significant for: appendectomy and back surgery. Apparently, the patient was found by his family this morning at his home. His brother came by to visit and found the patient confused, disheveled, and he had experienced urinary incontinence. They became alarmed and called EMS. Time of ED presentation, the patient was grossly altered The patient was aware that he was at the hospital however he was unable to recall situation, date, or time. Labs were obtained: Complete blood cell count reported WBCs 11.7, hemoglobin 13.8, hematocrit 30.7, and platelet count 150 2P coagulation panel reported an INR 1.1, PT 12.2, and PTT of 28.2. Chemistry panel reported sodium of 138, potassium 4.1, chloride 101, carbon dioxide 29, BUN 12, creatinine 1.00 , glucose 109, lactic acid 1.3, calcium 8.4. Cardiac enzymes reported grossly elevated troponin at 2.920. Urinalysis was essentially unremarkable. Chest x- ray reported right lower lobe interstitial pneumonic infiltrate with a small parapneumonic effusion, the possibility of radiation fibrotic scarring cannot be excluded in the right base. In addition there is mild prominence of the right infrahilar region, calcified nodular densities suggest granuloma changes in the right chest, and degenerative spondylosis change in the thoracic spine. CT head reported no acute intracranial abnormalities however chronic findings of left cerebellum of encephalomalacia were noted. Pelvic x-ray reported mild to moderate degenerative change in the bilateral hips, no acute definitive fracture or dislocation demonstrated, sacrum is somewhat obscured by bowel, degenerative changes of the lumbar spine noted. After brief discussion with both Dr. Chang and Dr. Swain; the patient will be admitted to the hospitalist services for continuation of care. Specialty Discharge - Follow Up or Referrals Follow up with: Teo Quick MD [Physician] - 06/20/17 10:30 am (PLEASE BRING ALL MEDS, INSURANCE CARDS, PHOTO I.D. LOCATED ON THE SECOND FLOOR OF THE [facility]ER CENTER) Discharge Plan - Discharge Medications No Action Pantoprazole Tab [Protonix Tab] 40 mg PO DAILY Ezetimibe [Zetia] 10 mg PO DAILY traMADol TAB [Ultram] 50 mg PO TID PRN PRN Reason: Pain Montelukast Tab [Singulair Tab] 10 mg PO DAILY Oxybutynin Xl [Ditropan Xl] 10 mg PO DAILY Ipratropium/Albuterol Inhaler [Combivent Respimat Inhaler] 1 puff INH QID PRN PRN Reason: Wheezing Lactulose Liquid [Chronulac] 2 tablespoon PO TID PRN PRN Reason: Constipation predniSONE TAB [PredniSONE] 20 mg PO DAILY #10 tablet Umeclidinium Brm/Vilanterol Tr [Anoro Ellipta] 1 puff INH DAILY - Follow Up or Referral Follow Up: Teo Quick MD [Physician] - 06/20/17 10:30 am (PLEASE BRING ALL MEDS, INSURANCE CARDS, PHOTO I.D. LOCATED ON THE SECOND FLOOR OF THE [facility]) - Forms/Instructions Instructions: Ischemic Stroke (DC) Exam - Constitutional Vitals: Period Temp Pulse Resp BP Sys/Huang Pulse Ox Last 24 Hr 97 F-97.8 F 89-122 16-28 126-167/68-100 92-98 Discharge Results Labs on day of discharge: Labs from last 24 hours 05/24/17 12:05 POC Glucose 207 H DS: Provider Date of admission: 05/04/17 11:56 Primary care physician: Danny Byrd MD Attending physician on admission: Noah Swain MD Consults: 05/04/17 13:45 Consult to Dietitian [CONS] Routine Reason for Dietitian: Other 05/05/17 09:56 Consult to Physician [CONS] Routine Comment: ams, agitation Consulting Provider: Jose Francisco Carr Person Notified: Valarie Date Notified: 05/05/17 Time Notified: 11:40 Consult Notification Comment: reconsulted on 05/17/17 05/05/17 09:59 Consult to Physician [CONS] Routine Comment: history of lung cancer Consulting Provider: Danny Byrd Person Notified: Mabel Date Notified: 05/05/17 Time Notified: 01:25 05/06/17 14:24 Consult to Occupational Therapy [CONS] Routine Reason for Occupational Therapy: Evaluate and Treat Consult to Physical Therapy [CONS] Routine Reason for Physical Therapy: Evaluate and Treat Start Therapy: Tomorrow 05/07/17 12:35 Consult to Case Mgmt/Social Srvs [CONS] Routine Reason for Case Mgmt/Social Srvs: Swingbed/SNF/Correction 05/09/17 16:37 Consult to Dietitian [CONS] Routine Reason for Dietitian: TF-Initiate/Manage 05/09/17 17:15 Consult to Dietitian [CONS] Routine Reason for Dietitian: TF-Initiate/Manage 05/10/17 10:58 Consult to Occupational Therapy [CONS] Routine Reason for Occupational Therapy: Weakness Consult to Physical Therapy [CONS] Routine Reason for Physical Therapy: Weakness 05/10/17 11:00 Consult to Physician [CONS] Routine Comment: lytic bone lesions on CT; h/o lung cancer Consulting Provider: Teo Quick 05/11/17 09:20 Consult to Physician [CONS] Routine Comment: ? burn to right forearm due to IV Consulting Provider: Segundo Woo Person Notified: holly Date Notified: 05/11/17 Time Notified: 09:40 05/11/17 09:33 Consult to Outpatient Therapy [CONS] Routine 05/23/17 10:04 Consult to Dietitian [CONS] Routine Reason for Dietitian: TF-Initiate/Manage Consult to Physician [CONS] Routine Comment: peg tube Consulting Provider: Danny Rueda Person Notified: Goran Date Notified: 05/23/17 Time Notified: 10:45 Discharging clinician: You DICKEY Expected date of discharge: 05/25/17
--- NOTE | 2017-05-25 10:40 | Discharge Summary ---
<You Ghotra - Last Filed: 05/25/17 12:03> Hospital Course - Hospital Course Hospital Course: This is a chronically ill 72-year-old male that presented to the ED at [facility] via EMS this morning for the evaluation of altered mental status. Patient has a very complex medical history significant for: Hypertension, peripheral neuropathy, dyslipidemia, chronic obstructive pulmonary disease, asthma, bronchitis, carcinoma of the lung, carcinoma of the prostate, GERD, chronic constipation, urinary frequency. Dr. Carr was consulted and felt that patient had either encephalopathy or stroke. MRI of the brain May 05, 2017 showed widespread scattering of acute embolic ischemia between 6 hours old and 4 days old involving the cerebral and cerebellar hemispheres bilaterally. Bilateral MCA bilateral JENNIFER by bilateral DREDGEMASTER and basilar artery vascular distributions involved. Patient was placed on Lovenox and Coumadin as Dr. Carr felt his strokes were embolic. Repeat MRI on May again showed multiple infarcts involving the right frontal temporal parietal and bilateral occipital, left posterior parietal lobe and right cerebellum. I took over patient's care on Tuesday and patient had gone into SVT and was placed on a Diltiazem drip the night by Dr. Swain. Repeat head CT on May 23, 2017 showed development of interval ischemia despite anticoagulation involving the right occipital, left frontal, left parietal areas. There is multiple vascular territories showing acute hemorrhagic transformation of ischemia in the left frontal parietal lobe and right occipital region. No midline shift. All anticoagulation was discontinued. Discussed withdrawal of care with family yesterday including 2 of the daughters and one brother. They indicated that her father would not want to live in a prison with no hope of recovering from the stroke that he had already told them he wanted nothing more done. He specifically does not want a PEG tube. Patient is unable to swallow at this point due to stroke. Patient was started on a fentanyl patch for comfort and will be given as needed Ativan and morphine every 2 hours as needed as needed for hospice end-of-life care. [facility] will transfer to the prison for hospice care. Dr. Byrd from pulmonary was consulted for management of patient COPD and right lower lung pneumonia. Patient was treated with Levaquin. Cardiology was consulted for SVT and elevated troponins. Echocardiogram showed an EF of 55% with PAP of 40 and grade 1/4 diastolic dysfunction. Transfer to for hospice. Specialty Discharge - Follow Up or Referrals Discharge Plan - Discharge Data Disposition: Hospice - Medical Facility - Discharge Medications New fentaNYL 25 MCG/HR PATCH [Duragesic 25 Patch] 1 patch TRANSDERM Q3DAY #5 patch Morphine Sulfate [Morphine Conc Liquid] 0.5 ml PO Q2H PRN #30 ml PRN Reason: Pain Skin Healing Oint (Aquaphor) [Aquaphor] 1 applic TOP PRN PRN applic PRN Reason: Dry Skin LORazepam [Lorazepam Intensol] 0.5 ml PO Q2H PRN #30 ml PRN Reason: Agitation Discontinued Pantoprazole Tab [Protonix Tab] 40 mg PO DAILY Ezetimibe [Zetia] 10 mg PO DAILY traMADol TAB [Ultram] 50 mg PO TID PRN PRN Reason: Pain Montelukast Tab [Singulair Tab] 10 mg PO DAILY Oxybutynin Xl [Ditropan Xl] 10 mg PO DAILY Ipratropium/Albuterol Inhaler [Combivent Respimat Inhaler] 1 puff INH QID PRN PRN Reason: Wheezing Lactulose Liquid [Chronulac] 2 tablespoon PO TID PRN PRN Reason: Constipation predniSONE TAB [PredniSONE] 20 mg PO DAILY #10 tablet Umeclidinium Brm/Vilanterol Tr [Anoro Ellipta] 1 puff INH DAILY - Follow Up or Referral - Forms/Instructions Instructions: Ischemic Stroke (DC) Exam - Constitutional Vitals: Period Temp Pulse Resp BP Sys/Huang Pulse Ox Last 24 Hr 97 F-97.8 F 104-122 16-28 133-167/68-100 92-98 Discharge Results Labs on day of discharge: Labs from last 24 hours 05/24/17 12:05 POC Glucose 207 H DS: Provider Date of admission: 05/04/17 11:56 Primary care physician: Danny Byrd MD Attending physician on admission: Noah Swain MD Consults: 05/04/17 13:45 Consult to Dietitian [CONS] Routine Reason for Dietitian: Other 05/05/17 09:56 Consult to Physician [CONS] Routine Comment: ams, agitation Consulting Provider: Jose Francisco Carr Person Notified: Valarie Date Notified: 05/05/17 Time Notified: 11:40 Consult Notification Comment: reconsulted on 05/17/17 05/05/17 09:59 Consult to Physician [CONS] Routine Comment: history of lung cancer Consulting Provider: Danny Byrd Person Notified: Mabel Date Notified: 05/05/17 Time Notified: 01:25 05/06/17 14:24 Consult to Occupational Therapy [CONS] Routine Reason for Occupational Therapy: Evaluate and Treat Consult to Physical Therapy [CONS] Routine Reason for Physical Therapy: Evaluate and Treat Start Therapy: Tomorrow 05/07/17 12:35 Consult to Case Mgmt/Social Srvs [CONS] Routine Reason for Case Mgmt/Social Srvs: Swingbed/SNF/Shelter 05/09/17 16:37 Consult to Dietitian [CONS] Routine Reason for Dietitian: TF-Initiate/Manage 05/09/17 17:15 Consult to Dietitian [CONS] Routine Reason for Dietitian: TF-Initiate/Manage 05/10/17 10:58 Consult to Occupational Therapy [CONS] Routine Reason for Occupational Therapy: Weakness Consult to Physical Therapy [CONS] Routine Reason for Physical Therapy: Weakness 05/10/17 11:00 Consult to Physician [CONS] Routine Comment: lytic bone lesions on CT; h/o lung cancer Consulting Provider: Teo Quick 05/11/17 09:20 Consult to Physician [CONS] Routine Comment: ? burn to right forearm due to IV Consulting Provider: Segundo Woo Person Notified: holly Date Notified: 05/11/17 Time Notified: 09:40 05/11/17 09:33 Consult to Outpatient Therapy [CONS] Routine 05/23/17 10:04 Consult to Dietitian [CONS] Routine Reason for Dietitian: TF-Initiate/Manage Consult to Physician [CONS] Routine Comment: peg tube Consulting Provider: Danny Rueda Person Notified: Goran Date Notified: 05/23/17 Time Notified: 10:45 Discharging clinician: You DICKEY <Ofe William - Last Filed: 05/25/17 14:59> Hospital Course - Time spent with patient Time with patient DS: Greater than 30 minutes (55 min) Diagnosis - Discharge Diagnosis (1) Hospice care Status: Acute (2) Cerebrovascular accident, embolic Status: Acute (3) Altered mental status Status: Chronic (4) Right lower lobe pneumonia Status: Acute (5) SVT (supraventricular tachycardia) Status: Acute Discharge Plan - Discharge Data Condition at Discharge: Stable Discharge Diet: other (pureed comfort food ) Activity: other (bedrest) - Forms/Instructions Additional Discharge Instructions: transfer to prison for hospice end of life care. comfort food, please cancel appt with Dr. Quick Exam - Constitutional General appearance: normal weight, no acute distress - Respiratory Respiratory exam: Present: clear to auscultation bilaterally. Absent: rhonchi, wheezes - Cardiovascular Cardiovascular exam: Present: tachycardia - GI/Abdominal GI/Abdominal exam: Present: normal bowel sounds, soft. Absent: tenderness - Neurological Exam Neurological exam: Present: altered, other (moving all extremities spontaneously but not to command ) - Psychiatric Psychiatric exam: Present: agitated, flat affect - Skin Skin exam: Present: other (right arm wound )
--- NOTE | 2017-05-25 11:47 | Pulmonology Progress Note ---
Pulmonary - PN: Subj Interval history: Carlos Alberto Parker, [facility] acting as scribe for Dr. Danny Byrd Mr. Juarez is a 72-year-old -[place] male who we saw in initial pulmonary consultation on 05/05/2017. At that time, our impressions were: 1. Altered mental status which is probably secondary to multiple bilateral cerebral emboli. Source is undetermined but would most likely be from the heart or ascending aorta. 2. Possible right lower lung pneumonia. Bacterial versus radiation injury. 3. COPD. Asthma. 4. 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 5. Past history tobacco abuse. Stop smoking 2002 6. History of asbestos exposure 7. Hyperlipidemia 8. High blood pressure 9. Degenerative joint disease 10. Chronic allergic sinusitis 05/06/2017. The patient was seen today along with his brother. Patient is definitely more awake and alert this morning. He is oriented at least to person and place. Carotid ultrasound showed less than 50% stenosis in both ICAs with heterogenous plaque formation. There was antegrade flow in both vertebral arteries. Doppler venograms showed no evidence of deep venous thrombophlebitis within either lower extremity. Echocardiogram was ordered yesterday, but has not yet been done. Chest x-ray today shows a probable right lower lung infiltrate. He is presently being treated with Cleocin and Levaquin. We have asked for sputum, but thus far the patient has not been able to produce a sputum for testing. He has remained afebrile. His white count is normal. 05/07/2017. Patient's pulmonary status is stable today. His mentation is about the same as it was yesterday. Review of microbiology reveals no positive cultures. INR is 1.2. Electrolytes are normal. Creatinine is 0.90 with a BUN of 16. Calcium is 9.1 and magnesium is 2.5. Labs been reviewed. Medicines have been reviewed. Echocardiogram. Ejection fraction 55%. Grade 1/4 diastolic dysfunction. Trace of mitral valve regurgitation with pulmonary artery pressures in the 40-45 % range. Mild to moderate tricuspid regurgitation with slight enlargement of the right atrium with normal size right ventricle. There is no mention of abnormal valves which might be a source of embolic disease.. Based on the distribution of the patient's central nervous system emboli he would think that this would come from either left heart origin of the ascending aorta. Maybe we should consider additional evaluation. 05/08/2017. This patient's mental status was somewhat altered earlier today and a CT scan of the head was done. This showed no acute changes. See report for additional details. Patient also had a CT of the abdomen and pelvis and this showed all lytic lesions in the bone which were present 2013. No other abnormality. Patient had a KUB of the abdomen on 05/07/2017 and it appeared that he had a good bit of fecal retention. Electrolytes normal. Creatinine is 0.9 with a BUN of 12 white count is 12,900 with 79.569.3 lymphs and 8.6 monocytes H& H is 15.0 41.2. Platelets 189,000. Liver function tests are normal. Her previous ammonia level was normal at 16 05/09/2017. This patient was admitted with altered mental status. He had multiple small emboli in the right and left brain. This definitely appeared to be embolic. As expected his carotids were negative. His echocardiogram did not show a definite source of emboli. Emboli most likely would only come from his heart or ascending aorta. We could consider additional evaluation of the aorta and possibly transesophageal echocardiogram. Regardless the patient is going to need to be anticoagulated. He is in a sinus rhythm and is been in a sinus rhythm throughout his hospitalization. He had a follow-up CT of the brain yesterday and this showed nothing new. He remains confused but not agitated. Patient has had adenocarcinoma the superior segment of the right lower lung. This is been treated with radiation. His admit chest x-ray showed right lower lung infiltrate versus a radiation injury. On today's chest x-ray the evolution appears to be secondary to a pneumonia which is not quite resolved. There are no positive cultures. His electrolytes are normal. Glucoses are normal. CBC is normal. INR is prolonged to 3.5. 05/11/2017. Patient was seen with his brother. Patient's a little more alert. He was able to answer a few more questions than before. He has an NG tube down. Swallowing is a new problem for him. Bone scan is noted. Doppler venogram showed no evidence of deep venous thrombophlebitis. Electrolytes are normal. Creatinine is 1.2. BUN is 32. White blood cell count is 14,700 with 86.8 segs. H&H 15.4/43.0. Patient is afebrile times many days. There are no positive cultures. INR is dropped to 2.6. Today I will restart Coumadin 5 mg daily. Previously the patient was on 10 mg daily. We do not know the source of bilateral cerebral nervous system emboli. Do we need transesophageal echocardiogram? 05/12/2017. The patient was seen today along with his nurse. He is awake, alert , and will answer questions. He states he feels a little bit better today. Dr. Quick's note has been reviewed. He feels that the patient needs an MRI of the brain with and without contrast to better determine if the area seen on recent head imaging are or are not metastatic disease. We certainly agree with this. This is been ordered for later on today. Dr. Woo and Vidhya Anderson, AGRICULTURAL TECHNICAL OFFICER, are seeing the patient for cellulitis of the right upper extremity. We appreciate their help. There are no positive cultures. No new labs were drawn today. Apparently, his INR has dropped off. These have been reordered. NG tube remains in place with NG tube feedings. He is for repeat speech therapy evaluation today. 05/13/2017. His 72-year-old black male who has adenocarcinoma the lung. He presented with an altered mental status and it appears that he has bilateral central nervous system emboli. See MRI of the brain. His mental status is improved some. He has an infection of the right forearm which is being treated. Patient has underlying COPD with bronchospastic disease which is under good control. Other problems include high blood pressure, hyperlipidemia and degenerative joint disease. Patient is slowly improving. Coumadin was restarted 1 or 2 days ago. Today's INR is 1.7 and I suspect it will lengthen slightly. This is being given for multiple emboli to the central nervous system. Source of emboli is unknown. Patient has a regular sinus rhythm. He is on 5 mg of Coumadin daily. 05/16/2017. Patient was seen along with his daughter who is feeding. She says he is swallowing but he is very slow to eat any cough occasionally when he swallows. Patient is more alert. His daughter says he recognizes family and other people when they come to see him. Patient still has his NG tube in for feeding. His nurse says is been no problem with residual residual. NG tube did have to be replaced last night. I have asked for calorie counting but I suspect will need to continue this for a while. Today's chest x-ray shows cardiomegaly. There is slight increased markings inferior to the right hilum. I do not see any infiltrates. There is no evidence of congestive heart failure. There are no new positive cultures. INR is 1.4. Electrolytes are normal. Creatinine has increased to 1.40 with a BUN of 32. Glucoses are fair. Phosphorus and magnesium are high. White count was 21,482 segs. H&H 15.3/ 43.5 and platelets are 134,000. Patient's on Levaquin. I hope to discontinue this soon. Medicines and labs have been reviewed. 05/17/2017. This patient was seen with his daughter. Patient seems less able to cooperate today. Daughter says that the patient was only able to look to his left on 05/16/2017. This morning when I asked him can he see me. He says he only sees half of me but he cannot describe this additionally. I have asked in neurology come back and take a look and see if we follow had anything else occur. Patient's glucoses are under acceptable control. He has had a recent PSA of 18.4. Dr. Monteiro note from 05/16/2017 is been reviewed. 05/18/2017. Patient was seen along with 1 of his daughters, his brother and Carlos Alberto Parker nurse practitioner. Patient is definitely more active and more alert and oriented today. He says he still cannot see. He is for an MRI of the brain later on today. I have reviewed Dr. Fernando Hoyos neurology note. Patient's on Coumadin 7-1/2 mg daily and today's INR has jumped from 1.5-2.4. White count remains elevated at 23,200. H&H is 15.4/43.2. Platelets are 124, 000. Electrolytes are normal. Creatinine is 1.20 and BUN is 34 magnesium is elevated at 3.0. 05/20/2017. This patient could not lie still for the follow-up MRI of his brain. He appears to have had progression of his multiple small bilateral strokes. He has been on anticoagulation. Appears that he has lost his vision. Electrolytes normal. Creatinine is 1.10 BUN is 35 white count is 22,600 with 81 segs 7 lymphs and 8 monos. Patient's been afebrile for a number of days. INR is 3.6. I think the family is considering nursing homes. Patient has underlying lung cancer. He is stable from a pulmonary standpoint. Dr. Mccormick will be available see the patient this weekend if needed. 05/23/2017. No family is present. Patient is lying fairly flat in bed and breathing comfortably. He is barely able to communicate. Family has made him a DO NOT RESUSCITATE. There are no positive cultures. Labs been reviewed. Medicines have been reviewed. I do not have much to offer. I agree with plans. 05/25/2017. The patient's chart was reviewed. He is now been made comfort measures only. Your plans to transfer to a local [facility] reportedly today are noted. We will sign off. Please reconsult as needed. Exam (Progress Note) - Constitutional Vitals: Period Temp Pulse Resp BP Sys/Huang Pulse Ox Last 24 Hr 97 F-97.8 F 89-122 16-28 126-167/68-100 92-98 Results - Labs CBC & BMP: 05/24/17 04:40 05/24/17 04:40 Specialty Discharge - Follow Up or Referrals
[2017-05-25 11:49] VITALS: BP 137/81
== END 2017-05-25 12:15 | disposition hospice, inpatient (51) | DRG 64 ==
LOC: EDBD → EDUNIT# → N.ED 09:21 → SUATTDRO 11:56 → N.EDINP 11:56 → N.TELES 12:56 → N.2E 05-16 11:34 → N.TELEN 05-22 08:23
PROVIDERS: ADMIT Internal Medicine; ATTEND Internal Medicine